=== PATIENT | male | born 1955 | race African-American/Black ===

== ENCOUNTER → 2018-08-07 12:10 | Outpatient (CLI) | payer MEDICARE, SELFPAY ==
[2018-08-07 13:09] LABS: Alanine Aminotransferase 23 IU/L (21-72); Aspartate Aminotransferase 26 IU/L (17-59); BUN Creatinine Ratio 16.3 (6-22); Blood Urea Nitrogen 13 mg/dL (9-20); Calcium 9.9 mg/dL (8.4-10.2); Carbon Dioxide 33 mmol/L (22-32); Chloride 99 mmol/L (98-107); Cholesterol 163 mg/dL (140-199); Estimated Glomerular Filt Rate > 60.0 mL/min (>60); Glucose 81 mg/dL (80-110); HDL Cholesterol 66 mg/dL (40-60); HEMOLYSIS < 15 (0-50); LDL Cholesterol Calculated 78 mg/dL (<100); Potassium 4.6 mmol/L (3.4-5.1); Sodium 142 mmol/L (137-145); Triglycerides 95 mg/dL (35-150)
== END ==
PROVIDERS: PCP Internal Medicine; Visit Provider Internal Medicine
DX: I10 Essential (primary) hypertension (principal); E78.5 Hyperlipidemia, unspecified
CPT/HCPCS: 36415; 80048; 80061; 84450; 84460

== ENCOUNTER 2020-04-10 18:51 | Inpatient (IN) | payer MEDICARE, MEDICAID, SELFPAY ==
[2020-04-10] VITALS (8 sets, daily range): BP systolic 118–152; BP diastolic 65–89; PULSE 109–116; RESP 26–31; TEMP 36.7–37.9; O2SAT 99–100; BMI 20.7
--- NOTE | 2020-04-10 18:56 | DI.RAD.S_ITS ---
PROCEDURE: XR CHEST 1V INDICATIONS: flu-like symptoms TECHNIQUE: One view of the chest was acquired. COMPARISON: [facility], CT, CT CHEST WITHOUT CONTRAST, 09/03/2019, 23:19. [facility], CR, XR CHEST 1 VIEW, 11/14/2019, 12:59. FINDINGS: Surgical changes and devices: None. Lungs and pleura: Rounded lesion in the left upper lobe peripherally appears similar to the prior exams. Emphysematous change. No new air space opacity identified. No pleural effusions or pneumothorax. Mediastinum: Mediastinal contours appear normal. Heart size is normal. Bones and chest wall: No suspicious bony lesions. Overlying soft tissues appear unremarkable. IMPRESSION: No acute cardiopulmonary abnormality. Left upper lobe pulmonary nodule appears similar. -Consider further evaluation with PET/CT if not performed as previously recommended. Emphysematous change. Dictated by: Elkin Castellon M.D. on 04/10/2020 at 19:51 Approved by: Elkin Castellon M.D. on 04/10/2020 at 19:53
[2020-04-10] MEDS: ALBUTEROL/IPRATROPIUM 3 ML AMPUL INH (19:00)
[2020-04-10 19:19] LABS: Add Manual Diff / Slide Review NO; Basophils Absolute Auto 100 /uL (0-100); Basophils Percent Auto 0.3 % (0-2); Eosinophils Absolute Auto 0 /uL (0-450); Hematocrit 33.8 % (41-53); Hemoglobin 11.2 g/dL (13.5-17.5); Lymphocytes Absolute Auto 900 /uL (1100-4500); Lymphocytes Percent Auto 4.3 % (25-40); Mean Corpuscular HGB Conc 33.1 % (30-36); Mean Corpuscular Hemoglobin 28.9 PG (26-34); Mean Corpuscular Volume 87.4 fL (80-100); Monocytes Absolute Auto 800 /uL (0-900); Monocytes Percent Auto 3.7 % (3-14); Neutrophils Absolute Auto 19400 /uL (1500-7000); Neutrophils Percent Auto 91.7 % (50-75); Platelet Count 363 X10^3/uL (150-400); Red Blood Cell Count 3.87 X10^6/uL (4.5-5.9); Red Cell Distribution Width 14.7 % (11.6-14.8); White Blood Cell Count 21.2 X10^3/uL (4.5-11.0)
--- NOTE | 2020-04-10 19:19 | ED_ITS ---
HPI - SOB/Dyspnea General Chief Complaint: Shortness of Breath/Dyspnea Stated Complaint: blood in sputum Time Seen by Provider: 04/10/20 18:56 Source: EMS Mode of arrival: EMS Limitations: no limitations History of Present Illness HPI Narrative: 65-year-old male former smoker with history of COPD on home oxygen of 2 L presents from a local rehab facility with a chief complaint of a relatively rapid onset of increased shortness of breath with pulse ox at 90% despite increasing oxygen by nasal cannula. Additionally he has had blood in his sputum and urine. He denies any chest pain or significant fatigue but is clearly increased work of breathing. He does not take any blood thinners. He has had no recent travel but has recently been hospitalized, he is of poor historian so the details are unclear. His records have been requested from the outside facility MD Complaint: shortness of breath and cough Onset (ago): hour(s) Severity: moderate Consistency/Duration: constant Relieving factors: oxygen and rest Exacerbating factors: nothing Known history of: COPD Associated symptoms: cough, wheezing and sputum production Related Data Home oxygen amount: 2 liters Home Medications Medication Instructions Recorded Confirmed acetaminophen 500 mg PO TID 04/10/20 04/10/20 albuterol sulfate 2.5 mg INHALATION QID PRN 04/10/20 04/10/20 amlodipine 10 mg PO QAM 04/10/20 04/10/20 aspirin [Adult Low Dose Aspirin] 81 mg PO QAM 04/10/20 04/10/20 atorvastatin 40 mg PO BEDTIME 04/10/20 04/10/20 baclofen 20 mg PO TID 04/10/20 04/10/20 benazepril 40 mg PO QAM 04/10/20 04/10/20 ferrous sulfate 325 mg PO QAM 04/10/20 04/10/20 gabapentin 600 mg PO TID 04/10/20 04/10/20 ipratropium-albuterol 3 ml INHALATION Q6H PRN 04/10/20 04/10/20 mometasone-formoterol [Dulera] 2 puff INHALATION BID 04/10/20 04/10/20 nicotine (polacrilex) 2 mg BUCCAL Q2-4H PRN 04/10/20 04/10/20 pantoprazole [Protonix] 40 mg PO QAM 04/10/20 04/10/20 Allergies Allergy/AdvReac Type Severity Reaction Status Date / Time No Known Drug Allergies Allergy Unverified 04/10/20 18:56 Review of Systems Constitutional Constitutional: Denies chills, Denies fatigue, Denies fever(s), Denies frequent falls, Denies lethargy and Denies weakness Eyes Eyes: Denies change in vision, Denies eye discharge, Denies irritation and Denies loss of vision ENT Ears, Nose, Mouth, and Throat: Denies change in voice, Denies dizziness, Denies neck pain, Denies sore throat and Denies throat swelling Cardiovascular Cardiovascular: Denies chest pain, Denies irregular heart rhythm, Denies lightheadedness, Denies palpitations, Reports dyspnea, Denies dyspnea on exertion and Denies orthopnea Respiratory Respiratory: Denies cough, Reports hemoptysis, Reports dyspnea, Denies dyspnea on exertion and Denies wheezing Gastrointestinal Gastrointestinal: Denies abdominal pain, Denies change in bowel habits, Denies diarrhea, Denies nausea and Denies vomiting Musculoskeletal Musculoskeletal: Denies neck pain and Denies numbness Integumentary/Breasts Skin/Breast: Denies pruritus, Denies erythema, Denies rash and Denies wounds Neurologic Neurologic: Denies behavioral changes, Denies confusion, Denies dizziness, Denies frequent falls, Denies loss of vision, Denies numbness and Denies weakness Psychiatric Psychiatric: Denies anxiety, Denies behavioral changes, Denies confusion, Denies depression, Denies homicidal ideation and Denies suicidal ideation Endocrine Endocrine: Denies fatigue, Denies flushing and Denies palpitations Hematologic/Lymphatic Hematologic/Lymphatic: Denies easy bruising Allergic/Immunologic Allergic/Immunologic: Denies urticaria, Denies throat swelling and Denies wheezing Patient History Medical History (Updated 04/10/20 @ 21:47 by Lio Saleem DO) Anemia, unspecified (Acute) Calculus of gallbladder without cholecystitis (Acute) Chronic obstructive pulmonary disease (Acute) Contracture, right elbow (Acute) Dysphagia (Acute) Esophageal obstruction (Acute) Essential hypertension (Acute) Hemiplegia and hemiparesis following cerebral infarction affecting right dominant side (Acute) Major depressive disorder (Acute) Melena (Acute) Neoplasm of uncertain behavior (Acute) Other nonspecific abnormal finding of lung field (Acute) Other reduced mobility (Acute) Other sequelae of cerebral infarction (Acute) Pneumonitis due to inhalation of food and vomit (Acute) Ulcer of esophagus with bleeding (Acute) Unspecified abnormal involuntary movements (Acute) Smoking Status: Former smoker alcohol intake frequency: 0-2 drinks per day Substance Use Type: does not use Exam Narrative Exam Narrative: GENERAL 65 year old patient appears stated age. Well-nourished, well-developed patient, in mild distress. Increased work of breathing, poor historian HEAD: Atraumatic. Normocephalic. EYES: Pupils equal round and reactive. Extraocular motions intact. No scleral icterus. No injection or drainage. ENT: Nose without bleeding, purulent drainage. Throat without erythema, tonsillar hypertrophy or exudate. Airway patent. NECK: Trachea midline. Non tender CARDIOVASCULAR: Tachycardic and regular rhythm without murmurs, gallops, or rubs. RESPIRATORY: Decreased breath sounds with expiratory wheeze bilaterally. Nor rales or rhonchi noted. GASTROINTESTINAL: Abdomen soft, non-tender, nondistended. EXTREMITIES: No edema or joint tenderness. BACK: Nontender without deformity or crepitance. No flank tenderness. NEURO: AOx3. Right upper and lower extremity weakness with splints on, consistent with history of stroke consulting and right-sided weakness SKIN: No rash or erythema of visible areas Initial Vital Signs Initial Vital Signs: Vital Signs Temperature 98.1 F 04/10/20 18:51 Pulse Rate 116 H 04/10/20 18:51 Respiratory Rate 30 H 04/10/20 18:51 Blood Pressure 152/89 H 04/10/20 18:51 Pulse Oximetry 100 04/10/20 18:51 Course Orders Ordered: ED Orders 04/10/20 18:54 EKG-12 Lead Stat RT Consult Eval and Treat Now 04/10/20 18:56 XR chest 1V Stat 04/10/20 19:05 C-Reactive Protein Quant Stat Complete Blood Count AUTO DIFF Stat Comprehensive Metabolic Panel Stat D Dimer Stat Ferritin Stat Lactate (Lactic Acid) Stat Lactate Dehydrogenase Stat NT-proBNP (BNP-Adult 18+) Stat Procalcitonin Stat Prothrombin Time INR Stat Troponin & CK Cardiac Panel Stat 04/10/20 19:11 Arterial Blood Gas Stat 04/10/20 19:33 Blood Culture Stat 04/10/20 19:58 CT angio chest PE protocol Stat 04/10/20 20:49 Urine Microscopic Stat Sodium Chloride (Normal Saline 0.9%) 1,000 mls @ 125 mls/hr IV CONT MILO Sodium Chloride (Normal Saline 0.9%) 2,100 mls @ 700 mls/hr 30 ml/kg infuse over 3 hr (2100 ml) IV NOW ONE Stop: 04/10/20 22:31 Last Admin: 04/10/20 19:49 Dose: 700 mls/hr Documented by: HANANE Discontinued Medications Albuterol/Ipratropium (Duoneb) 3 ml INH NOW ONE Stop: 04/10/20 18:55 Last Admin: 04/10/20 19:00 Dose: 3 ml Documented by: HARRISON Levofloxacin (Levaquin) 750 mg in 150 mls @ 100 mls/hr IV NOW ONE Stop: 04/10/20 21:01 Last Admin: 04/10/20 19:49 Dose: 100 mls/hr Documented by: HANANE Vital Signs Vital signs: Vital Signs - 8 hr 04/10/20 18:51 04/10/20 19:00 Temperature 98.1 F Pulse Rate 116 H 115 H Respiratory Rate 30 H 30 H Blood Pressure 152/89 H Pulse Oximetry 100 100 MDM - SOB/Dyspnea Lab Data Result diagrams: 04/10/20 19:05 04/10/20 19:05 Labs: Lab Results 04/10/20 04/10/20 04/10/20 Range/Units 19:05 19:05 19:05 WBC 21.2 H (4.5-11.0) X10^3/uL RBC 3.87 L (4.5-5.9) X10^6/uL Hgb 11.2 L (13.5-17.5) g/dL Hct 33.8 L (41-53) % MCV 87.4 (80-100) fL MCH 28.9 (26-34) PG MCHC 33.1 (30-36) % RDW 14.7 (11.6-14.8) % Plt Count 363 (150-400) X10^3/uL Neut % (Auto) 91.7 H (50-75) % Lymph % (Auto) 4.3 L (25-40) % [place] % (Auto) 3.7 (3-14) % Eos % (Auto) 0.0 L (2-4) % Baso % (Auto) 0.3 (0-2) % Neut # (Auto) 65176 H (8267-0814) /uL Lymph # (Auto) 900 L (5916-7115) /uL [place] # (Auto) 800 (0-900) /uL Eos # (Auto) 0 (0-450) /uL Baso # (Auto) 100 (0-100) /uL PT 12.7 (10.1-12.7) SECONDS INR 1.1 (0.9-1.3) D-Dimer (<230) ng/mL ABG pH (7.35-7.45) ABG pCO2 (35-45) mmHg ABG pO2 (80-100) mmHg ABG HCO3 (22-26) mmol/L ABG Total CO2 (21-31) mmol/L ABG O2 Saturation (95-100) % ABG Base Excess (-2-2) mmol/L FiO2 Sodium 129 L (137-145) mmol/L Potassium 5.3 H (3.4-5.1) mmol/L Chloride 87 L (98-107) mmol/L Carbon Dioxide 33 H (22-32) mmol/L BUN 21 H (9-20) mg/dL Creatinine 0.73 (0.66-1.25) mg/dL Estimated GFR > 60.0 (>60) mL/min BUN/Creatinine Ratio 28.8 H (6-22) Glucose 102 (80-110) mg/dL Lactate (0.7-2.1) mmol/L Calcium 10.0 (8.4-10.2) mg/dL Ferritin (18-464) ng/mL Total Bilirubin 0.9 (0.2-1.3) mg/dL AST 52 (17-59) IU/L ALT 27 (<50) IU/L Alkaline Phosphatase 114 (38-126) U/L Lactate Dehydrogenase (313-618) U/L Total Creatine Kinase (55-170) U/L CK-MB (CK-2) (<2.37) ng/mL CK-MB (CK-2) Rel Index (1.5-5.0) % Troponin I (0.01-0.034) ng/mL C-Reactive Protein (<1.0) mg/dL NT-Pro-B Natriuret Pep Cancelled Total Protein 8.4 H (6.3-8.2) g/dL Albumin 4.6 (3.5-5.0) g/dL Globulin 3.8 (1.7-4.1) g/dL Albumin/Globulin Ratio 1.2 (1.0-2.8) Procalcitonin (<0.5) ng/mL Urine RBC (0-5/HPF) Urine WBC (0-5/HPF) Urine Bacteria (None) Ur Culture Indicated? COVID-19 PCR (Negative) 04/10/20 04/10/20 04/10/20 Range/Units 19:05 19:05 19:05 WBC (4.5-11.0) X10^3/uL RBC (4.5-5.9) X10^6/uL Hgb (13.5-17.5) g/dL Hct (41-53) % MCV (80-100) fL MCH (26-34) PG MCHC (30-36) % RDW (11.6-14.8) % Plt Count (150-400) X10^3/uL Neut % (Auto) (50-75) % Lymph % (Auto) (25-40) % [place] % (Auto) (3-14) % Eos % (Auto) (2-4) % Baso % (Auto) (0-2) % Neut # (Auto) (6142-3520) /uL Lymph # (Auto) (8433-9932) /uL [place] # (Auto) (0-900) /uL Eos # (Auto) (0-450) /uL Baso # (Auto) (0-100) /uL PT (10.1-12.7) SECONDS INR (0.9-1.3) D-Dimer 1609 H (<230) ng/mL ABG pH (7.35-7.45) ABG pCO2 (35-45) mmHg ABG pO2 (80-100) mmHg ABG HCO3 (22-26) mmol/L ABG Total CO2 (21-31) mmol/L ABG O2 Saturation (95-100) % ABG Base Excess (-2-2) mmol/L FiO2 Sodium (137-145) mmol/L Potassium (3.4-5.1) mmol/L Chloride (98-107) mmol/L Carbon Dioxide (22-32) mmol/L BUN (9-20) mg/dL Creatinine (0.66-1.25) mg/dL Estimated GFR (>60) mL/min BUN/Creatinine Ratio (6-22) Glucose (80-110) mg/dL Lactate 1.1 (0.7-2.1) mmol/L Calcium (8.4-10.2) mg/dL Ferritin (18-464) ng/mL Total Bilirubin (0.2-1.3) mg/dL AST (17-59) IU/L ALT (<50) IU/L Alkaline Phosphatase (38-126) U/L Lactate Dehydrogenase (313-618) U/L Total Creatine Kinase (55-170) U/L CK-MB (CK-2) (<2.37) ng/mL CK-MB (CK-2) Rel Index (1.5-5.0) % Troponin I (0.01-0.034) ng/mL C-Reactive Protein (<1.0) mg/dL NT-Pro-B Natriuret Pep Total Protein (6.3-8.2) g/dL Albumin (3.5-5.0) g/dL Globulin (1.7-4.1) g/dL Albumin/Globulin Ratio (1.0-2.8) Procalcitonin 0.70 H (<0.5) ng/mL Urine RBC (0-5/HPF) Urine WBC (0-5/HPF) Urine Bacteria (None) Ur Culture Indicated? COVID-19 PCR (Negative) 04/10/20 04/10/20 04/10/20 Range/Units 19:05 19:05 19:11 WBC (4.5-11.0) X10^3/uL RBC (4.5-5.9) X10^6/uL Hgb (13.5-17.5) g/dL Hct (41-53) % MCV (80-100) fL MCH (26-34) PG MCHC (30-36) % RDW (11.6-14.8) % Plt Count (150-400) X10^3/uL Neut % (Auto) (50-75) % Lymph % (Auto) (25-40) % [place] % (Auto) (3-14) % Eos % (Auto) (2-4) % Baso % (Auto) (0-2) % Neut # (Auto) (2105-1440) /uL Lymph # (Auto) (3774-8772) /uL [place] # (Auto) (0-900) /uL Eos # (Auto) (0-450) /uL Baso # (Auto) (0-100) /uL PT (10.1-12.7) SECONDS INR (0.9-1.3) D-Dimer (<230) ng/mL ABG pH 7.49 H (7.35-7.45) ABG pCO2 43.3 (35-45) mmHg ABG pO2 62 L (80-100) mmHg ABG HCO3 33 H (22-26) mmol/L ABG Total CO2 34 H (21-31) mmol/L ABG O2 Saturation 93 L (95-100) % ABG Base Excess 9.0 H (-2-2) mmol/L FiO2 32 Sodium (137-145) mmol/L Potassium (3.4-5.1) mmol/L Chloride (98-107) mmol/L Carbon Dioxide (22-32) mmol/L BUN (9-20) mg/dL Creatinine (0.66-1.25) mg/dL Estimated GFR (>60) mL/min BUN/Creatinine Ratio (6-22) Glucose (80-110) mg/dL Lactate (0.7-2.1) mmol/L Calcium (8.4-10.2) mg/dL Ferritin 18 (18-464) ng/mL Total Bilirubin (0.2-1.3) mg/dL AST (17-59) IU/L ALT (<50) IU/L Alkaline Phosphatase (38-126) U/L Lactate Dehydrogenase 631 H (313-618) U/L Total Creatine Kinase 580 H (55-170) U/L CK-MB (CK-2) 5.26 H (<2.37) ng/mL CK-MB (CK-2) Rel Index 0.9 L (1.5-5.0) % Troponin I 0.030 (0.01-0.034) ng/mL C-Reactive Protein 1.2 H (<1.0) mg/dL NT-Pro-B Natriuret Pep 56 Total Protein (6.3-8.2) g/dL Albumin (3.5-5.0) g/dL Globulin (1.7-4.1) g/dL Albumin/Globulin Ratio (1.0-2.8) Procalcitonin (<0.5) ng/mL Urine RBC (0-5/HPF) Urine WBC (0-5/HPF) Urine Bacteria (None) Ur Culture Indicated? COVID-19 PCR (Negative) 04/10/20 04/10/20 Range/Units 19:57 20:49 WBC (4.5-11.0) X10^3/uL RBC (4.5-5.9) X10^6/uL Hgb (13.5-17.5) g/dL Hct (41-53) % MCV (80-100) fL MCH (26-34) PG MCHC (30-36) % RDW (11.6-14.8) % Plt Count (150-400) X10^3/uL Neut % (Auto) (50-75) % Lymph % (Auto) (25-40) % [place] % (Auto) (3-14) % Eos % (Auto) (2-4) % Baso % (Auto) (0-2) % Neut # (Auto) (8600-4023) /uL Lymph # (Auto) (8471-8959) /uL [place] # (Auto) (0-900) /uL Eos # (Auto) (0-450) /uL Baso # (Auto) (0-100) /uL PT (10.1-12.7) SECONDS INR (0.9-1.3) D-Dimer (<230) ng/mL ABG pH (7.35-7.45) ABG pCO2 (35-45) mmHg ABG pO2 (80-100) mmHg ABG HCO3 (22-26) mmol/L ABG Total CO2 (21-31) mmol/L ABG O2 Saturation (95-100) % ABG Base Excess (-2-2) mmol/L FiO2 Sodium (137-145) mmol/L Potassium (3.4-5.1) mmol/L Chloride (98-107) mmol/L Carbon Dioxide (22-32) mmol/L BUN (9-20) mg/dL Creatinine (0.66-1.25) mg/dL Estimated GFR (>60) mL/min BUN/Creatinine Ratio (6-22) Glucose (80-110) mg/dL Lactate (0.7-2.1) mmol/L Calcium (8.4-10.2) mg/dL Ferritin (18-464) ng/mL Total Bilirubin (0.2-1.3) mg/dL AST (17-59) IU/L ALT (<50) IU/L Alkaline Phosphatase (38-126) U/L Lactate Dehydrogenase (313-618) U/L Total Creatine Kinase (55-170) U/L CK-MB (CK-2) (<2.37) ng/mL CK-MB (CK-2) Rel Index (1.5-5.0) % Troponin I (0.01-0.034) ng/mL C-Reactive Protein (<1.0) mg/dL NT-Pro-B Natriuret Pep Total Protein (6.3-8.2) g/dL Albumin (3.5-5.0) g/dL Globulin (1.7-4.1) g/dL Albumin/Globulin Ratio (1.0-2.8) Procalcitonin (<0.5) ng/mL Urine RBC None seen (0-5/HPF) Urine WBC None seen (0-5/HPF) Urine Bacteria None seen (None) Ur Culture Indicated? Cult not indicated COVID-19 PCR Negative (Negative) Urine Dip Bedside Urine Glucose Negative Bedside Urine Bilirubin - Negative Bedside Urine Ketone +/- 5 Urine Specific [place] 1.010 Bedside Urine Occult Blood - Negative Bedside Urine pH 7.5 Bedside Urine Protein +/- 15 Bedside Urine Urobilinogen - Negative Bedside Urine Nitrite - Negative Bedside Urine Leukocytes - Negative Esterase Imaging Data CT scan - chest: Radiologist's Impression: Chart Viewer Diagnostics DATE TYPE STATUS REF RANGE/AUTHOR Hx 04/10/20 19:58 Elkin Castellon 04/10/20 18:56 Akira King Jr, M0 1955 ADM IN, Main ED R04 Search Chart No Data to Display No Data to Display Today 19:00 AKIRA KING JR M [address] [address] [address] Scan Report Signed Patient: AKIRA KING JR R#: [id number] : 3Acct:[id number] Age/Sex: 65 / MDate of Service: 04/10/20 Loc: ED Accession Number: [id number] Procedure: CT angio chest PE protocol Ordering Provider: Lio Saleem D.O. PROCEDURE: CT ANGIO CHEST PE PROTOCOL INDICATIONS: SOB, tachycardia, hypoxia, elevated DDimer TECHNIQUE: After the administration of intravenous contrast, 2 mm thick sections acquired from the pulmonary apices to the posterior costophrenic angles. 3-dimensional maximum intensity projection (MIP) coronal and sagittal reformats were then acquired through the thorax. For radiation dose reduction, the following was used: automated exposure control, adjustment of mA and/or kV according to patient size. COMPARISON: [facility], CT, CT CHEST WITHOUT CONTRAST, 09/03/2019, 23:19. [facility], CR, XR CHEST 1V, 04/10/2020, 19:18. FINDINGS: Image quality: Fair. Bolus timing is somewhat delayed with near equal contrast enhancement in the aorta. Artifact related to the patient's arm positioned over the right chest. Pulmonary arteries: Pulmonary arteries are normal in size, and demonstrate no intraluminal filling defects to suggest central pulmonary embolism. Lungs and pleura: Extensive emphysematous change. Left upper lobe pulmonary nodule with peripheral lucency measuring 2.3 x 2 cm (), previously 2.2 x 2.1 cm on 09/03/2019. Minimal streaky opacities lung bases. No pleural effusions or pneumothorax. Central and peripheral airways are patent. Mediastinum: Heart size is prominent, without pericardial effusion. No mediastinal or hilar adenopathy. Thoracic aorta is normal in caliber and enhancement. Esophagus is normal in caliber, without hiatal hernia. Debris within the esophagus. Bones and chest wall: Scoliosis. No suspicious bony lesions. Ribs and thoracic spine appear intact throughout. Thyroid gland is unremarkable. No axillary or supraclavicular adenopathy. Abdomen: Visualized upper abdominal solid organs appear normal in the early arterial phase of enhancement. IMPRESSION: Suboptimal evaluation due to artifact. 1. No central pulmonary embolism. 2. No significant acute airspace opacity. Minimal atelectasis. Extensive emphysema. 3. Left upper lobe pulmonary nodule measuring 2.3 cm is not significantly changed compared to August of 2019. Consider further evaluation with PET/CT which may help in excluding underlying malignancy. 4. Debris in the esophagus. This may place the patient at increased risk for aspiration. Dictated by: Elkin Castellon M.D. on 04/10/2020 at 21:05 Approved by: Elkin Castellon M.D. on 04/10/2020 at 21:14 MDM Narrative Medical decision making narrative: Multiple etiologies to consider, however COVID, PE, exacerbation of COPD with underlying infectious process are clearly highest on our list. Given tachycardia, tachypnea, hypoxia, hemoptysis with elevated D-dimer a CTA to rule out PE was ordered. I discussed the images with the radiologist personally and no filling defects are noted. Rapid COVID was obtained and negative, CT not classic for coronavirus. Infectious etiology highly considered given hypoxia, tachypnea, elevated white count, elevated procalcitonin but no classic findings on imaging. Perhaps this will proliferating further imaging after fluid administration. Patient will require hospitalization given increased oxygen demand and need for stabilization of his condition. Discharge Plan Departure Patient Disposition: Admitted As Inpatient Clinical Impression: Acute exacerbation of chronic obstructive airways disease, Respiratory failure with hypoxia Admit Date/Time: 04/10/20 21:41 Admit Provider: Enrrique Johnson
[2020-04-10 19:28] LABS: INR 1.1 (0.9-1.3); Prothrombin Time 12.7 SECONDS (10.1-12.7)
[2020-04-10 19:30] LABS: Lactate (Lactic Acid) 1.1 mmol/L (0.7-2.1)
[2020-04-10 19:33] LABS: C-Reactive Protein Quant 1.2 mg/dL (<1.0); Lactate Dehydrogenase 631 U/L (313-618)
[2020-04-10 19:35] LABS: Alanine Aminotransferase 27 IU/L (<50); Albumin 4.6 g/dL (3.5-5.0); Albumin Globulin Ratio 1.2 (1.0-2.8); Alkaline Phosphatase 114 U/L (38-126); Aspartate Aminotransferase 52 IU/L (17-59); BUN Creatinine Ratio 28.8 (6-22); Bilirubin Total 0.9 mg/dL (0.2-1.3); Blood Urea Nitrogen 21 mg/dL (9-20); Carbon Dioxide 33 mmol/L (22-32); Chloride 87 mmol/L (98-107); Estimated Glomerular Filt Rate > 60.0 mL/min (>60); Globulin 3.8 g/dL (1.7-4.1); Glucose 102 mg/dL (80-110); HEMOLYSIS < 15 (0-50); Potassium 5.3 mmol/L (3.4-5.1); Sodium 129 mmol/L (137-145); Total Protein 8.4 g/dL (6.3-8.2)
[2020-04-10 19:40] LABS: D Dimer 1609 ng/mL (<230); NT-proBNP (BNP-Adult 18+) 56 pg/mL (<125)
[2020-04-10] MEDS: SODIUM CHLORIDE 0.9% 2,100 ML 700 ML IV (19:49)
[2020-04-10] MEDS: levoFLOXacin 750 MG/150 ML PIGGYBACK 100 MG IV (19:49)
[2020-04-10 19:50] LABS: Fractionated Inspired Oxygen 32; HCO3 ABG 33 mmol/L (22-26); Oxygen Saturation ABG 93 % (95-100); PCO2 ABG 43.3 mmHg (35-45); PO2 ABG 62 mmHg (80-100); TCO2 ABG 34 mmol/L (21-31); pH ABG 7.49 (7.35-7.45)
--- NOTE | 2020-04-10 19:58 | DI.CT.S_ITS ---
PROCEDURE: CT ANGIO CHEST PE PROTOCOL INDICATIONS: SOB, tachycardia, hypoxia, elevated DDimer TECHNIQUE: After the administration of intravenous contrast, 2 mm thick sections acquired from the pulmonary apices to the posterior costophrenic angles. 3-dimensional maximum intensity projection (MIP) coronal and sagittal reformats were then acquired through the thorax. For radiation dose reduction, the following was used: automated exposure control, adjustment of mA and/or kV according to patient size. COMPARISON: [facility], CT, CT CHEST WITHOUT CONTRAST, 09/03/2019, 23:19. [facility], CR, XR CHEST 1V, 04/10/2020, 19:18. FINDINGS: Image quality: Fair. Bolus timing is somewhat delayed with near equal contrast enhancement in the aorta. Artifact related to the patient's arm positioned over the right chest. Pulmonary arteries: Pulmonary arteries are normal in size, and demonstrate no intraluminal filling defects to suggest central pulmonary embolism. Lungs and pleura: Extensive emphysematous change. Left upper lobe pulmonary nodule with peripheral lucency measuring 2.3 x 2 cm (), previously 2.2 x 2.1 cm on 09/03/2019. Minimal streaky opacities lung bases. No pleural effusions or pneumothorax. Central and peripheral airways are patent. Mediastinum: Heart size is prominent, without pericardial effusion. No mediastinal or hilar adenopathy. Thoracic aorta is normal in caliber and enhancement. Esophagus is normal in caliber, without hiatal hernia. Debris within the esophagus. Bones and chest wall: Scoliosis. No suspicious bony lesions. Ribs and thoracic spine appear intact throughout. Thyroid gland is unremarkable. No axillary or supraclavicular adenopathy. Abdomen: Visualized upper abdominal solid organs appear normal in the early arterial phase of enhancement. IMPRESSION: Suboptimal evaluation due to artifact. 1. No central pulmonary embolism. 2. No significant acute airspace opacity. Minimal atelectasis. Extensive emphysema. 3. Left upper lobe pulmonary nodule measuring 2.3 cm is not significantly changed compared to August of 2019. Consider further evaluation with PET/CT which may help in excluding underlying malignancy. 4. Debris in the esophagus. This may place the patient at increased risk for aspiration. Dictated by: Elkin Castellon M.D. on 04/10/2020 at 21:05 Approved by: Elkin Castellon M.D. on 04/10/2020 at 21:14
[2020-04-10 20:06] LABS: Ferritin 18 ng/mL (18-464)
--- NOTE | 2020-04-10 20:15 | PC.NURSE ---
Pt moaning and continually yelling our for help. Ensured call light in reach. Assisted with urination. Rt placed pt on high flow heated nasal canula. Pt remains on monitoring device.
[2020-04-10 21:04] LABS: Bacteria Urine None Seen; RBC Urine None Seen (0-5/HPF); WBC Urine None Seen (0-5/HPF)
[2020-04-10 21:09] LABS: COVID19 -Nasal RAPID Negative (Negative)
[2020-04-10 21:15] LABS: Creatine Kinase 580 U/L (55-170)
[2020-04-10 21:17] LABS: Culture Indicated Urine Cult Not Indicated
[2020-04-10 21:30] LABS: CKMB % Relative Index 0.9 % (1.5-5.0); Creatine Kinase MB 5.26 ng/mL (<2.37)
[2020-04-10 23:17] LABS: Magnesium 1.6 mg/dL (1.6-2.3)
--- NOTE | 2020-04-10 23:35 | P.HP_ITS ---
History of Present Illness History of Present Illness Date Patient Seen: 04/10/20 Time Patient Seen: 22:53 Chief complaint: blood in sputum Narrative: Mr. 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 History obtained from the patient is somewhat suspect with different versions of information provided defer personnel. The patient is on home O2 at between 2-4 liters/minute titrated up to 3.5 L with increasing shortness of breath that has been progressive over 2 days. Today the patient reports coughing with blood tinged sputum and has been complaining of fevers and chills. He denies headache nasal congestion or sore throat. He has had no complaints of chest pain or palpitations. He reports worsening breathing with an associated cough and has minimal fully active. He reports no abdominal pain or heartburn, nausea or vomiting. Patient denies diarrhea or constipation reports last bowel movement was earlier today. He denies difficulty urinating. The patient states he is nonambulatory at the [facility] the he does have a right arm splint and right AFO. Upon arrival the patient is afebrile with temperature 98.1?, type cardiac at 116, blood pressure 152/89, respirations of 30 in shallow saturating 100% on 4 L nasal cannula. In a chest x-ray sustained finds no infusions or consolidation, left upper lobe nodule present, CT a is obtained finding no central PE, nodule 2.3 x 2 cm in the left upper lobe, minimal streaky opacities in the lung bases, debris in the esophagus. An arterial blood gas obtained finding pH of 7.49, pCO2 of 43.3, PO2 of 62, bicarb 33 with a base excess of +9 on 32% FiO2. On laboratory analysis he has an elevated white count at 22.2 with neutrophils of 91.7%, hemoglobin of 11.2 hematocrit of 33.8, platelets of 368. He has a PT of 12.7 and INR of 1.1 with an elevated D-dimer of 1609. On chemistries is sodium of 129, potassium of 5.3, BUN of 21 and creatinine 0.73. His nonfasting glucose is 102. Does have an elevated LDH at 631, CRP is 1.2, procalcitonin is 0.70, total CK is 580 with CK-MB of 5.26 and an index low at 0.9, troponin is 0.030. He has a proBNP of 56. Will the patient is treated in the ER with albuterol nebulizer an oxygenation in comfort stabilized on he did high-flow nasal cannula normal saline sepsis bolus, blood cultures are drawn and then patient received Levaquin 750 mg IV. With the patient is admitted to the hospital for acute hypoxic respiratory failure secondary to COPD and pneumonia. Patient History Medical History Anemia, unspecified (Acute) Calculus of gallbladder without cholecystitis (Acute) Chronic obstructive pulmonary disease (Acute) Contracture, right elbow (Acute) Dysphagia (Acute) Esophageal obstruction (Acute) Essential hypertension (Acute) Hemiplegia and hemiparesis following cerebral infarction affecting right dominant side (Acute) Major depressive disorder (Acute) Melena (Acute) Neoplasm of uncertain behavior (Acute) Other nonspecific abnormal finding of lung field (Acute) Other reduced mobility (Acute) Other sequelae of cerebral infarction (Acute) Pneumonitis due to inhalation of food and vomit (Acute) Ulcer of esophagus with bleeding (Acute) Unspecified abnormal involuntary movements (Acute) Family & Social History Family History (Updated 04/10/20 @ 23:44 by XAVIER Santos) Father Diabetes mellitus Hypertension CVA (cerebral vascular accident) Social History: Prior Living Arrangements Skilled Nurse Facility Safety & Behavioral: Feels Safe in Current Yes Environment Been Physically Hurt or No Threatened By a Person Suicidal Ideation Description Vague Suicide Plan Description No Plan Tobacco & Substance use: Tobacco type cannabis/marijuana Smoking Status Former smoker alcohol intake frequency 0-2 drinks per day Substance Use Type marijuana Comment: The patient is presently residing at [facility]. Smoking: Former smoker having quit in July 2019, greater than 40 pack year smoking history Alcohol: Patient previously consumed alcoholic beverages but none since his stroke Substance use: Prior user of cocaine, methamphetamine and marijuana. Advanced directives: Entered discussion with the patient he states his desire to be FULL CODE. He designates his friend El Nielsen to be his surrogate decision maker. Meds Home Medications and Allergies Home Medications Medication Instructions Recorded Confirmed Type acetaminophen 500 mg PO TID 04/10/20 04/10/20 History albuterol sulfate 2.5 mg INHALATION QID PRN 04/10/20 04/10/20 History amlodipine 10 mg PO QAM 04/10/20 04/10/20 History aspirin [Adult Low Dose Aspirin] 81 mg PO QAM 04/10/20 04/10/20 History atorvastatin 40 mg PO BEDTIME 04/10/20 04/10/20 History baclofen 20 mg PO TID 04/10/20 04/10/20 History benazepril 40 mg PO QAM 04/10/20 04/10/20 History ferrous sulfate 325 mg PO QAM 04/10/20 04/10/20 History gabapentin 600 mg PO TID 04/10/20 04/10/20 History ipratropium-albuterol 3 ml INHALATION Q6H PRN 04/10/20 04/10/20 History mometasone-formoterol [Dulera] 2 puff INHALATION BID 04/10/20 04/10/20 History nicotine (polacrilex) 2 mg BUCCAL Q2-4H PRN 04/10/20 04/10/20 History pantoprazole [Protonix] 40 mg PO QAM 04/10/20 04/10/20 History Allergies Allergy/AdvReac Type Severity Reaction Status Date / Time No Known Drug Allergies Allergy Unverified 04/10/20 18:56 Review of Systems Review of Systems ROS: Yes All systems reviewed with the patient and are negative except as otherwise documented Exam Vital Signs (past 8 hours): - 04/10/20 18:51 04/10/20 19:00 04/10/20 20:00 Temperature 98.1 F Pulse Rate 116 H 115 H 113 H Respiratory Rate 30 H 30 H 26 H Blood Pressure 152/89 H Blood Pressure [Right Arm] 132/73 Pulse Oximetry 100 100 99 04/10/20 20:45 04/10/20 21:00 04/10/20 21:30 Temperature Pulse Rate 110 H 109 H 111 H Respiratory Rate 27 H 30 H 31 H Blood Pressure Blood Pressure [Right Arm] 118/65 137/67 131/71 Pulse Oximetry 100 100 100 04/10/20 22:15 Temperature 100.3 F H Pulse Rate 114 H Respiratory Rate 28 H Blood Pressure 126/68 Blood Pressure [Right Arm] Pulse Oximetry 100 Oxygen Delivery Method High Flow Nasal Cannula Oxygen Flow Rate 4 Narrative Exam Narrative: GENERAL APPEARANCE: well developed, male with a right-sided marita plegia sitting semi recumbent in bed in no acute distress. HEENT: Right facial droop, difficulty controlling secretions with secretions draining from right mouth, pupils equal and minimally reactive, conjunctiva clear, case tracks bilateral, mucous membranes are moist and pink. NECK/THYROID: Diminished range of motion,, no JVD, no carotid bruit, no thyromegaly, trachea midline. LYMPH NODES: no cervical or supraclavicular lymphadenopathy. SKIN: [place], warm and dry, scrotal irritation HEART: Tachycardic, S1-S2, no murmur, no rubs or gallops, brisk capillary refill, no edema LUNGS: Breath sounds essential coarseness, diminished bibasilar with expiratory grunt CHEST: Symmetrical movement, no accessory muscle use, shallow tidal volume. ABDOMEN: Soft, round, attempting to percussion without tenderness, no organomegaly, no flank or suprapubic tenderness, active bowel tones. EXTREMITIES: Inability to move right arm or right leg, right arm in splint, right lower leg in AFO, left upper and lower extremity strength is 4/5 , contracture right arm and fingers. NEUROLOGIC: AAO x3, right marita paresis, decreased sensation right upper and lower extremities, hearing grossly normal to speech. PSYCH: Anxious, cooperative, needy behaviors. Objective Labs Result Diagrams: 04/10/20 19:05 04/10/20 19:05 Labs: Laboratory Results - last 24 hr 04/10/20 04/10/20 04/10/20 19:05 19:05 19:05 WBC 21.2 H RBC 3.87 L Hgb 11.2 L Hct 33.8 L MCV 87.4 MCH 28.9 MCHC 33.1 RDW 14.7 Plt Count 363 Neut % (Auto) 91.7 H Lymph % (Auto) 4.3 L [place] % (Auto) 3.7 Eos % (Auto) 0.0 L Baso % (Auto) 0.3 Neut # (Auto) 57802 H Lymph # (Auto) 900 L [place] # (Auto) 800 Eos # (Auto) 0 Baso # (Auto) 100 PT 12.7 INR 1.1 D-Dimer ABG pH ABG pCO2 ABG pO2 ABG HCO3 ABG Total CO2 ABG O2 Saturation ABG Base Excess FiO2 Sodium 129 L Potassium 5.3 H Chloride 87 L Carbon Dioxide 33 H BUN 21 H Creatinine 0.73 Estimated GFR > 60.0 BUN/Creatinine Ratio 28.8 H Glucose 102 Lactate Calcium 10.0 Magnesium Ferritin Total Bilirubin 0.9 AST 52 ALT 27 Alkaline Phosphatase 114 Lactate Dehydrogenase Total Creatine Kinase CK-MB (CK-2) CK-MB (CK-2) Rel Index Troponin I C-Reactive Protein NT-Pro-B Natriuret Pep Cancelled Total Protein 8.4 H Albumin 4.6 Globulin 3.8 Albumin/Globulin Ratio 1.2 Procalcitonin Urine RBC Urine WBC Urine Bacteria Ur Culture Indicated? COVID-19 PCR 04/10/20 04/10/20 04/10/20 19:05 19:05 19:05 WBC RBC Hgb Hct MCV MCH MCHC RDW Plt Count Neut % (Auto) Lymph % (Auto) [place] % (Auto) Eos % (Auto) Baso % (Auto) Neut # (Auto) Lymph # (Auto) [place] # (Auto) Eos # (Auto) Baso # (Auto) PT INR D-Dimer 1609 H ABG pH ABG pCO2 ABG pO2 ABG HCO3 ABG Total CO2 ABG O2 Saturation ABG Base Excess FiO2 Sodium Potassium Chloride Carbon Dioxide BUN Creatinine Estimated GFR BUN/Creatinine Ratio Glucose Lactate 1.1 Calcium Magnesium Ferritin Total Bilirubin AST ALT Alkaline Phosphatase Lactate Dehydrogenase Total Creatine Kinase CK-MB (CK-2) CK-MB (CK-2) Rel Index Troponin I C-Reactive Protein NT-Pro-B Natriuret Pep Total Protein Albumin Globulin Albumin/Globulin Ratio Procalcitonin 0.70 H Urine RBC Urine WBC Urine Bacteria Ur Culture Indicated? COVID-19 PCR 04/10/20 04/10/20 04/10/20 19:05 19:05 19:05 WBC RBC Hgb Hct MCV MCH MCHC RDW Plt Count Neut % (Auto) Lymph % (Auto) [place] % (Auto) Eos % (Auto) Baso % (Auto) Neut # (Auto) Lymph # (Auto) [place] # (Auto) Eos # (Auto) Baso # (Auto) PT INR D-Dimer ABG pH ABG pCO2 ABG pO2 ABG HCO3 ABG Total CO2 ABG O2 Saturation ABG Base Excess FiO2 Sodium Potassium Chloride Carbon Dioxide BUN Creatinine Estimated GFR BUN/Creatinine Ratio Glucose Lactate Calcium Magnesium 1.6 Ferritin 18 Total Bilirubin AST ALT Alkaline Phosphatase Lactate Dehydrogenase 631 H Total Creatine Kinase 580 H CK-MB (CK-2) 5.26 H CK-MB (CK-2) Rel Index 0.9 L Troponin I 0.030 C-Reactive Protein 1.2 H NT-Pro-B Natriuret Pep 56 Total Protein Albumin Globulin Albumin/Globulin Ratio Procalcitonin Urine RBC Urine WBC Urine Bacteria Ur Culture Indicated? COVID-19 PCR 04/10/20 04/10/20 04/10/20 19:11 19:57 20:49 WBC RBC Hgb Hct MCV MCH MCHC RDW Plt Count Neut % (Auto) Lymph % (Auto) [place] % (Auto) Eos % (Auto) Baso % (Auto) Neut # (Auto) Lymph # (Auto) [place] # (Auto) Eos # (Auto) Baso # (Auto) PT INR D-Dimer ABG pH 7.49 H ABG pCO2 43.3 ABG pO2 62 L ABG HCO3 33 H ABG Total CO2 34 H ABG O2 Saturation 93 L ABG Base Excess 9.0 H FiO2 32 Sodium Potassium Chloride Carbon Dioxide BUN Creatinine Estimated GFR BUN/Creatinine Ratio Glucose Lactate Calcium Magnesium Ferritin Total Bilirubin AST ALT Alkaline Phosphatase Lactate Dehydrogenase Total Creatine Kinase CK-MB (CK-2) CK-MB (CK-2) Rel Index Troponin I C-Reactive Protein NT-Pro-B Natriuret Pep Total Protein Albumin Globulin Albumin/Globulin Ratio Procalcitonin Urine RBC None seen Urine WBC None seen Urine Bacteria None seen Ur Culture Indicated? Cult not indicated COVID-19 PCR Negative Assessment & Plan Assessment & Plan narrative: This is a 65-year-old male who presents with a 2 day history of worsening shortness of breath developing blood tinged sputum today with associated fevers and chills and increasing oxygen requirement in the setting of COPD. 1. Acute to respiratory failure with hypoxemia,, present on admission, active -patient with a history of emphysema and is on home O2 at 2-4 liters/minute. Complaints of increasing shortness of breath for 2 days developing blood tinged cough today. -patient presents today with increasing hypoxemia progressive for 2 days requiring increase in oxygen level to 3.5, upon arrival respiratory rate is 30 heart rate is 116. -arterial blood gas reveals a pH of 7.49, pCO2 of 33.3, PO2 62, bicarb 33 with a base excess +9 on 32% FiO2. -multiple etiologies intake and for hypoxemia including: COPD exacerbation-PF ratio 193.75, a gradient 109.8 with expected 86. Past history of smoking greater than 40 pack years. Pulmonary embolism-elevated D-dimer at 1609, CTA finds no central filling deficits and is negative for pulmonary embolism. Pneumonia- aspiration pneumonia with debris remaining in the esophagus on CT scan with history of CVA and dysphagia. Pneumonia-bacterial versus viral versus COVID-19, patient with elevated white count at 22 with increased neutrophils of 91.7%, increased procalcitonin an elevated CRP at 1.2 and patient initially afebrile upon arrival however temperature increased to 100.3 on admission to the floor. -respiratory therapy to consult evaluate and treat, supplemental oxygen as needed maintain oxygen saturation 88-92 %, currently on heated, high-flow oxygen. -incentive spirometry every 2 hours while awake and flutter valve twice daily. 2. Sepsis the respiratory compromise, present on admission, active. -patient with an elevated temperature upon arrival to the floor 100.3, has an elevated white count of 22.2 with increased neutrophils of 91.7 %, CRP of 1.2, procalcitonin 0.70. No extremity swelling or findings consistent with DVT. -sofa score is 3 based on pulmonary compromise with a PF ratio of 193.75. -the patient received sepsis bolus in the ER with 2100 cc of normal saline, blood cultures are drawn and he is started on Levaquin 750 mg IV. -will follow septic markers including white count and procalcitonin. 3. Probable pneumonia, acute, present on admission, active. -patient with cough developing blood-tinged sputum today, complaints of fevers and chills. -pneumonia not evident on chest x-ray or CT, imaging identifies only minimal streaky opacities in the lung bases, clinically patient with coarse breath sounds diminished bibasilar breath sounds. -white blood count is 22.2, neutrophils 91.7%, CRP 1.2, procalcitonin 0.7. Pneumonia severity index is 127, classIV with 30 day mortality rate of 8.2%. -Supplemental oxygen to maintain saturation 88-92%, ordered albuterol and DuoNeb treatments. -ordered Lovenox 750 mg daily, 1st dose administered in the ER. -ordered azithromycin 500 mg IV daily. -continue home regimen of Dulera 2 puffs twice daily. 4. Esophageal stricture, chronic -the patient has a prior history of esophageal stricture undergoing balloon dilation 2 years ago. -on CT scan, debris is identified in the esophagus increasing the risk for aspiration. -the patient is not coughing on thin liquids however ordered dysphagia diet. -requested swallow evaluation with speech therapy evaluation. -will continue home medication of Protonix 40 mg daily 5. 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 -the patient resides at [facility] and states that he is nonambulatory. -he has right arm splint and right lower leg AFO. -requested PT and OT consult to evaluate and treat. -will continue home regimen of gabapentin 600 mg 3 times daily and baclofen 20 mg 3 times daily. 6. Essential hypertension, chronic, stable. -patient with a blood pressure 152/89 upon arrival. Blood pressure improves to 126/68 upon arrival to floor. -continue home regimen of benazepril 40 mg daily and amlodipine 10 mg daily. 7. Hyperlipidemia, chronic, stable. -will continue home regimen of atorvastatin 40 mg daily at bedtime. 8. Nicotine dependence, chronic, stable. -patient quit smoking in July of 2019, he has been using nicotine lozenges at [facility]. -ordered Nicoderm patch daily. Isolation: Droplet pending results of respiratory panel. VTE prophylaxis: Bilateral compression hose, enoxaparin. IV fluid: Normal saline 100 cc/hour Diet: Heart healthy low-sodium dysphagia diet Code status: FULL CODE, patient's friend El Nielsen is is surrogate decision maker. This is a 65-year-old male patient with multiple risk factors for pulmonary compromise presenting with acute respiratory failure and hypoxemia. Patient is being treated for pneumonia with further evaluation for aspiration. He has has an elevated D-dimer but CT is negative for central embolism. The patient is admitted as an inpatient for treatment of pneumonia and further evaluation monitoring. His expected length of stay is greater than 2 midnights. COVID-19 COVID-19 status: Negative Result date/Date tested (Pos, Neg/Pending): 04/10/20 Scores GCS Roberto coma scale eye opening: Spontaneous [place] coma scale verbal response: Orientated Roberto coma scale motor response: Obey commands [place] coma scale total score: 15 SOFA PaO2/FIO2: < 220 mmHg Platelets: >= 150 Bilirubin: < 1.2 mg/dL Hypotension: MAP >= 70 mmHg Roberto Coma Scale: 15 Renal: < 1.2 mg/dL SOFA Score: 3 Quality VTE Deep Vein Thrombosis/Pulmonary Embolism Present on Admission: No
--- NOTE | 2020-04-10 23:36 | PC.NURSE ---
Pt arrived on unit at approx 2215 anxious and concerned about the change in scenery but he calmed down and was cooperative. His shorts smelled strongly of urine and it was difficult to convince him to take them off. He arrived on the unit on hi flow heated O2, 40L, NC with a sat of 100%. It was turned down by RT to lower is O2 sat to mid 90's. He denies N and px. He was voided, yellow cloudly. A respiratory panel swab was obtained and set to lab. Pt has a dysphasia and L sided hemiparesis. He uses a motorized wheelchair. VSS and A and O x 4. He may have some confusion when he feels overwhelmed.
[2020-04-11] VITALS (18 sets, daily range): BP systolic 53–155; BP diastolic 27–86; PULSE 88–140; RESP 18–28; TEMP 36.8–37.9; O2SAT 97–100
--- NOTE | 2020-04-11 | DI.RAD.S_ITS ---
PROCEDURE: XR CHEST 1V INDICATIONS: INTUBATION and Picc placement TECHNIQUE: One view of the chest was acquired. COMPARISON: [facility], , XR CHEST 1V, 04/11/2020, 7:01. FINDINGS: Surgical changes and devices: There has been interval placement of an endotracheal tube with the tip positioned approximately 5.9 cm above the level of the jorge luis. A right-sided PICC line catheter is evident with the tip overlying the mid superior vena cava. Lungs and pleura: Aeration of the lungs is similar to the prior study. Nodular densities within it the left upper lobe and right lung base appear to be present, similar to the previous study. There is no effusion or pneumothorax. Mediastinum: Mediastinal contours appear normal. Heart size is normal. Bones and chest wall: No suspicious bony lesions. Overlying soft tissues appear unremarkable. IMPRESSION: 1. Tubes and lines, as described. 2. Stable aeration of the lungs. Dictated by: Deep Sultana M.D. on 04/11/2020 at 16:55 Approved by: Deep Sultana M.D. on 04/11/2020 at 16:56
--- NOTE | 2020-04-11 | DI.RAD.S_ITS ---
PROCEDURE: XR CHEST 1V INDICATIONS: NG TUBE PLACEMENT TECHNIQUE: One view of the chest was acquired. COMPARISON: [facility], CR, XR CHEST 1V, 04/11/2020, 16:41. FINDINGS: Surgical changes and devices: Tip of endotracheal tube projects approximately 6.2 cm above the jorge luis. Nasogastric tube is in place with the distal tip projecting over the left upper abdomen and distal side-port beyond the gastroesophageal junction. Stable positioning of right upper extremity PICC. Lungs and pleura: Left upper lobe nodule. Patchy bilateral opacities involving the upper lung zones bilaterally and right lung base. Diffuse interstitial prominence. No pleural effusions or pneumothorax. Mediastinum: The cardiomediastinal contours remain stable. Heart size is normal. Bones and chest wall: No suspicious bony lesions. Overlying soft tissues appear unremarkable. IMPRESSION: Nasogastric tube in place and appears appropriately positioned. Stable positioning of right upper extremity PICC. Tip of endotracheal tube projects approximately 6.2 cm above the jorge luis. Stable cardiopulmonary evaluation. Dictated by: Brenton Gray M.D. on 04/11/2020 at 18:51 Approved by: Brenton Gray M.D. on 04/11/2020 at 18:54
--- NOTE | 2020-04-11 | DI.RAD.S_ITS ---
PROCEDURE: XR CHEST 1V INDICATIONS: SOB, PNA, Blood in sputum TECHNIQUE: One view of the chest was acquired. COMPARISON: [facility], CT, CT ANGIO CHEST PE PROTOCOL, 04/10/2020, 20:24. [facility], CR, XR CHEST 1V, 04/10/2020, 19:18. FINDINGS: Surgical changes and devices: None. Lungs and pleura: There is a left upper lobe pulmonary nodule. Interstitial prominence within the left lung is more prominent involving the left infrahilar region. No large area of pulmonary consolidation is identified. No effusion or pneumothorax is evident. Mediastinum: Mediastinal contours appear normal. Heart size is normal. Bones and chest wall: No suspicious bony lesions. Overlying soft tissues appear unremarkable. IMPRESSION: 1. Interstitial prominence within the left lung is nonspecific and may represent asymmetric edema versus interstitial pneumonia. 2. Left upper lobe pulmonary nodule. Dictated by: Deep Sultana M.D. on 04/11/2020 at 7:45 Approved by: Deep Sultana M.D. on 04/11/2020 at 7:48
[2020-04-11] MEDS: ATORVASTATIN 20 MG TABLET 40 MG PO (00:33)
[2020-04-11] MEDS: DOCUSATE 100 MG CAPSULE PO (00:33)
[2020-04-11] MEDS: BACLOFEN 10 MG TABLET 20 MG PO (00:34)
[2020-04-11] MEDS: ENOXAPARIN 40 MG/0.4 ML SYRINGE SUBCUT (00:35)
[2020-04-11] MEDS: AZITHROMYCIN 500 MG in DEXTROSE 5% IN WATER 250 ML IV (00:36)
[2020-04-11] MEDS: NICOTINE 21 MG PATCH TOP (00:36)
[2020-04-11 00:53] LABS: Adenovirus Not Detected (Not Detect)
[2020-04-11 00:54] LABS: Bordetella pertussis Not Detected (Not Detect); Chlamydophila pneumoniae Not Detected (Not Detect); Coronavirus 229E Not Detected (Not Detect); Coronavirus HKU1 Not Detected (Not Detect); Coronavirus NL 63 Not Detected (Not Detect); Coronavirus OC43 Not Detected (Not Detect); Human Metapneumovirus Not Detected (Not Detect); Human Rhinovirus/Enterovirus Not Detected (Not Detect); Influenza A Not Detected (Not Detect); Influenza B Not Detected (Not Detect); Mycoplasma pneumoniae Not Detected (Not Detect); Parainfluenza Virus 1 Not Detected (Not Detect); Parainfluenza Virus 2 Not Detected (Not Detect); Parainfluenza Virus 3 Not Detected (Not Detect); Parainfluenza Virus 4 Not Detected (Not Detect); Respiratory Syncytial Virus Not Detected (Not Detect)
[2020-04-11 02:18] LABS: Add Manual Diff / Slide Review NO; Basophils Absolute Auto 100 /uL (0-100); Basophils Percent Auto 0.3 % (0-2); Eosinophils Absolute Auto 0 /uL (0-450); Eosinophils Percent Auto 0.1 % (2-4); Hematocrit 26.2 % (41-53); Hemoglobin 8.5 g/dL (13.5-17.5); Lymphocytes Absolute Auto 1100 /uL (1100-4500); Lymphocytes Percent Auto 4.6 % (25-40); Mean Corpuscular HGB Conc 32.5 % (30-36); Mean Corpuscular Hemoglobin 28.6 PG (26-34); Monocytes Absolute Auto 1700 /uL (0-900); Monocytes Percent Auto 6.9 % (3-14); Neutrophils Absolute Auto 21800 /uL (1500-7000); Neutrophils Percent Auto 88.1 % (50-75); Platelet Count 281 X10^3/uL (150-400); Red Blood Cell Count 2.98 X10^6/uL (4.5-5.9); Red Cell Distribution Width 14.6 % (11.6-14.8); White Blood Cell Count 24.7 X10^3/uL (4.5-11.0)
[2020-04-11 02:27] LABS: BUN Creatinine Ratio 48.1 (6-22); Blood Urea Nitrogen 37 mg/dL (9-20); Calcium 8.9 mg/dL (8.4-10.2); Carbon Dioxide 31 mmol/L (22-32); Chloride 91 mmol/L (98-107); Estimated Glomerular Filt Rate > 60.0 mL/min (>60); Glucose 104 mg/dL (80-110); HEMOLYSIS 20 (0-50); Potassium 4.9 mmol/L (3.4-5.1); Sodium 126 mmol/L (137-145)
[2020-04-11 02:38] LABS: Troponin I 0.046 ng/mL (0.01-0.034)
--- NOTE | 2020-04-11 02:47 | PC.NURSE ---
Very restless, but denies any pain. Refused to wear his knee high anti-embolism stockings. States I can't wear them that's too tight. Will cont. POc & monitor.
[2020-04-11] MEDS: SODIUM CHLORIDE 0.9% 1,000 ML 100 ML IV ×2 (03:10→21:10)
[2020-04-11 03:36] LABS: Procalcitonin 1.73 ng/mL (<0.5)
--- NOTE | 2020-04-11 05:37 | PC.NURSE ---
Night Pharmacist called asked to verify order for Metoprolol 12.5 mg. Po now order.
[2020-04-11] MEDS: METOPROLOL IR 25 MG TABLET 12.5 MG PO (05:50)
--- NOTE | 2020-04-11 06:58 | PC.NURSE ---
XAVIER Johnson notified pt. expectorating more bloody sputum this morning. Hospitalist came & seen pt. this morning. Ordered Stat CXR test cell technician notified. Very restless all night, did not sleep well. Earlier notified XAVIER Johnson his HR is sustaining over 100 to 120's. Medicated with 12.5 mg. PO Metoprolol. Constant drooling changed his gown & took off his t-shirt. Will report to day RN & monitor.
--- NOTE | 2020-04-11 09:01 | P.PN_ITS ---
Subjective Subjective Date Patient Seen: 04/11/20 Time Patient Seen: 09:01 Interval history: He is seen in his room today to follow-up his esophageal stricture, dysphagia, leukocytosis, hemiparesis, fever and rising troponin. He lives in the [facility]. He presented yesterday with bloody sputum, with a CT negative for PE but positive for debris in the esophagus and with a fever of 100.3. He has been started on Zithromax and levofloxacin to treat presumed pneumonia. The imaging has not been confirmatory so far. He had a stroke in November that left him with right hemiparesis. He has had several esophageal stricture procedures to dilate that. His troponin will be repeated later this morning. It is challenging to communicate with him. He is n.p.o. Exam Vital Signs (past 8 hours): - 04/11/20 04:10 04/11/20 08:00 Temperature 99.9 F H 99.5 F Pulse Rate 122 H 114 H Respiratory Rate 26 H 20 Blood Pressure 154/82 H 155/86 H Pulse Oximetry 98 99 Oxygen Delivery Method High Flow Nasal Cannula Oxygen Flow Rate 3 Narrative Exam Narrative: No apparent distress. Orientation challenging to ascertain. He tries to communicate but mostly grunts and moans. He is drooling. It is unclear how much of this is his baseline or exacerbated by the current febrile illness. Heart is difficult to hear due to the noisy upper airway sounds. Lungs are also difficult to clarify due to the noisy upper airway sounds. There is no ankle edema Abdomen is soft, bowel sounds active, nontender, no organomegaly. Objective Labs Result Diagrams: 04/11/20 02:05 04/11/20 02:05 Labs: Laboratory Results - last 24 hr 04/10/20 04/10/20 04/10/20 19:05 19:05 19:05 WBC 21.2 H RBC 3.87 L Hgb 11.2 L Hct 33.8 L MCV 87.4 MCH 28.9 MCHC 33.1 RDW 14.7 Plt Count 363 Neut % (Auto) 91.7 H Lymph % (Auto) 4.3 L Waller % (Auto) 3.7 Eos % (Auto) 0.0 L Baso % (Auto) 0.3 Neut # (Auto) 66397 H Lymph # (Auto) 900 L Waller # (Auto) 800 Eos # (Auto) 0 Baso # (Auto) 100 PT 12.7 INR 1.1 D-Dimer ABG pH ABG pCO2 ABG pO2 ABG HCO3 ABG Total CO2 ABG O2 Saturation ABG Base Excess FiO2 Sodium 129 L Potassium 5.3 H Chloride 87 L Carbon Dioxide 33 H BUN 21 H Creatinine 0.73 Estimated GFR > 60.0 BUN/Creatinine Ratio 28.8 H Glucose 102 Lactate Calcium 10.0 Magnesium Ferritin Total Bilirubin 0.9 AST 52 ALT 27 Alkaline Phosphatase 114 Lactate Dehydrogenase Total Creatine Kinase CK-MB (CK-2) CK-MB (CK-2) Rel Index Troponin I C-Reactive Protein NT-Pro-B Natriuret Pep Cancelled Total Protein 8.4 H Albumin 4.6 Globulin 3.8 Albumin/Globulin Ratio 1.2 Procalcitonin Urine RBC Urine WBC Urine Bacteria Ur Culture Indicated? Chlamy pneumoniae PCR Adenovirus (PCR) B.parapertussis DNA PCR Coronavirus OC43 (PCR) Coronavirus HKU1 (PCR) Coronavirus 229E (PCR) COVID-19 PCR Coronavirus NL63 (PCR) Human Metapneumovir PCR Influenza Type A (PCR) Influenza Type B (PCR) M. pneumoniae (PCR) Parainfluenza 1 (PCR) Parainfluenza 2 (PCR) Parainfluenza 3 (PCR) Parainfluenza 4 (PCR) RSV (PCR) Entero/Rhino (PCR) 04/10/20 04/10/20 04/10/20 19:05 19:05 19:05 WBC RBC Hgb Hct MCV MCH MCHC RDW Plt Count Neut % (Auto) Lymph % (Auto) Waller % (Auto) Eos % (Auto) Baso % (Auto) Neut # (Auto) Lymph # (Auto) Waller # (Auto) Eos # (Auto) Baso # (Auto) PT INR D-Dimer 1609 H ABG pH ABG pCO2 ABG pO2 ABG HCO3 ABG Total CO2 ABG O2 Saturation ABG Base Excess FiO2 Sodium Potassium Chloride Carbon Dioxide BUN Creatinine Estimated GFR BUN/Creatinine Ratio Glucose Lactate 1.1 Calcium Magnesium Ferritin Total Bilirubin AST ALT Alkaline Phosphatase Lactate Dehydrogenase Total Creatine Kinase CK-MB (CK-2) CK-MB (CK-2) Rel Index Troponin I C-Reactive Protein NT-Pro-B Natriuret Pep Total Protein Albumin Globulin Albumin/Globulin Ratio Procalcitonin 0.70 H Urine RBC Urine WBC Urine Bacteria Ur Culture Indicated? Chlamy pneumoniae PCR Adenovirus (PCR) B.parapertussis DNA PCR Coronavirus OC43 (PCR) Coronavirus HKU1 (PCR) Coronavirus 229E (PCR) COVID-19 PCR Coronavirus NL63 (PCR) Human Metapneumovir PCR Influenza Type A (PCR) Influenza Type B (PCR) M. pneumoniae (PCR) Parainfluenza 1 (PCR) Parainfluenza 2 (PCR) Parainfluenza 3 (PCR) Parainfluenza 4 (PCR) RSV (PCR) Entero/Rhino (PCR) 04/10/20 04/10/20 04/10/20 19:05 19:05 19:05 WBC RBC Hgb Hct MCV MCH MCHC RDW Plt Count Neut % (Auto) Lymph % (Auto) Waller % (Auto) Eos % (Auto) Baso % (Auto) Neut # (Auto) Lymph # (Auto) Waller # (Auto) Eos # (Auto) Baso # (Auto) PT INR D-Dimer ABG pH ABG pCO2 ABG pO2 ABG HCO3 ABG Total CO2 ABG O2 Saturation ABG Base Excess FiO2 Sodium Potassium Chloride Carbon Dioxide BUN Creatinine Estimated GFR BUN/Creatinine Ratio Glucose Lactate Calcium Magnesium 1.6 Ferritin 18 Total Bilirubin AST ALT Alkaline Phosphatase Lactate Dehydrogenase 631 H Total Creatine Kinase 580 H CK-MB (CK-2) 5.26 H CK-MB (CK-2) Rel Index 0.9 L Troponin I 0.030 C-Reactive Protein 1.2 H NT-Pro-B Natriuret Pep 56 Total Protein Albumin Globulin Albumin/Globulin Ratio Procalcitonin Urine RBC Urine WBC Urine Bacteria Ur Culture Indicated? Chlamy pneumoniae PCR Adenovirus (PCR) B.parapertussis DNA PCR Coronavirus OC43 (PCR) Coronavirus HKU1 (PCR) Coronavirus 229E (PCR) COVID-19 PCR Coronavirus NL63 (PCR) Human Metapneumovir PCR Influenza Type A (PCR) Influenza Type B (PCR) M. pneumoniae (PCR) Parainfluenza 1 (PCR) Parainfluenza 2 (PCR) Parainfluenza 3 (PCR) Parainfluenza 4 (PCR) RSV (PCR) Entero/Rhino (PCR) 06/05/20 06/05/20 06/05/20 19:11 19:57 20:49 WBC RBC Hgb Hct MCV MCH MCHC RDW Plt Count Neut % (Auto) Lymph % (Auto) Waller % (Auto) Eos % (Auto) Baso % (Auto) Neut # (Auto) Lymph # (Auto) Waller # (Auto) Eos # (Auto) Baso # (Auto) PT INR D-Dimer ABG pH 7.49 H ABG pCO2 43.3 ABG pO2 62 L ABG HCO3 33 H ABG Total CO2 34 H ABG O2 Saturation 93 L ABG Base Excess 9.0 H FiO2 32 Sodium Potassium Chloride Carbon Dioxide BUN Creatinine Estimated GFR BUN/Creatinine Ratio Glucose Lactate Calcium Magnesium Ferritin Total Bilirubin AST ALT Alkaline Phosphatase Lactate Dehydrogenase Total Creatine Kinase CK-MB (CK-2) CK-MB (CK-2) Rel Index Troponin I C-Reactive Protein NT-Pro-B Natriuret Pep Total Protein Albumin Globulin Albumin/Globulin Ratio Procalcitonin Urine RBC None seen Urine WBC None seen Urine Bacteria None seen Ur Culture Indicated? Cult not indicated Chlamy pneumoniae PCR Adenovirus (PCR) B.parapertussis DNA PCR Coronavirus OC43 (PCR) Coronavirus HKU1 (PCR) Coronavirus 229E (PCR) COVID-19 PCR Negative Coronavirus NL63 (PCR) Human Metapneumovir PCR Influenza Type A (PCR) Influenza Type B (PCR) M. pneumoniae (PCR) Parainfluenza 1 (PCR) Parainfluenza 2 (PCR) Parainfluenza 3 (PCR) Parainfluenza 4 (PCR) RSV (PCR) Entero/Rhino (PCR) 04/10/20 04/11/20 04/11/20 23:10 02:05 02:05 WBC 24.7 H RBC 2.98 L Hgb 8.5 L Hct 26.2 L MCV 88.0 MCH 28.6 MCHC 32.5 RDW 14.6 Plt Count 281 Neut % (Auto) 88.1 H Lymph % (Auto) 4.6 L Waller % (Auto) 6.9 Eos % (Auto) 0.1 L Baso % (Auto) 0.3 Neut # (Auto) 14345 H Lymph # (Auto) 1100 Waller # (Auto) 1700 H Eos # (Auto) 0 Baso # (Auto) 100 PT INR D-Dimer ABG pH ABG pCO2 ABG pO2 ABG HCO3 ABG Total CO2 ABG O2 Saturation ABG Base Excess FiO2 Sodium 126 L Potassium 4.9 Chloride 91 L Carbon Dioxide 31 BUN 37 H Creatinine 0.77 Estimated GFR > 60.0 BUN/Creatinine Ratio 48.1 H Glucose 104 Lactate Calcium 8.9 Magnesium Ferritin Total Bilirubin AST ALT Alkaline Phosphatase Lactate Dehydrogenase Total Creatine Kinase CK-MB (CK-2) CK-MB (CK-2) Rel Index Troponin I C-Reactive Protein NT-Pro-B Natriuret Pep Total Protein Albumin Globulin Albumin/Globulin Ratio Procalcitonin Urine RBC Urine WBC Urine Bacteria Ur Culture Indicated? Chlamy pneumoniae PCR Not detected Adenovirus (PCR) Not detected B.parapertussis DNA PCR Not detected Coronavirus OC43 (PCR) Not detected Coronavirus HKU1 (PCR) Not detected Coronavirus 229E (PCR) Not detected COVID-19 PCR Coronavirus NL63 (PCR) Not detected Human Metapneumovir PCR Not detected Influenza Type A (PCR) Not detected Influenza Type B (PCR) Not detected M. pneumoniae (PCR) Not detected Parainfluenza 1 (PCR) Not detected Parainfluenza 2 (PCR) Not detected Parainfluenza 3 (PCR) Not detected Parainfluenza 4 (PCR) Not detected RSV (PCR) Not detected Entero/Rhino (PCR) Not detected 04/11/20 04/11/20 02:05 02:05 WBC RBC Hgb Hct MCV MCH MCHC RDW Plt Count Neut % (Auto) Lymph % (Auto) Waller % (Auto) Eos % (Auto) Baso % (Auto) Neut # (Auto) Lymph # (Auto) Waller # (Auto) Eos # (Auto) Baso # (Auto) PT INR D-Dimer ABG pH ABG pCO2 ABG pO2 ABG HCO3 ABG Total CO2 ABG O2 Saturation ABG Base Excess FiO2 Sodium Potassium Chloride Carbon Dioxide BUN Creatinine Estimated GFR BUN/Creatinine Ratio Glucose Lactate Calcium Magnesium Ferritin Total Bilirubin AST ALT Alkaline Phosphatase Lactate Dehydrogenase Total Creatine Kinase CK-MB (CK-2) CK-MB (CK-2) Rel Index Troponin I 0.046 H C-Reactive Protein NT-Pro-B Natriuret Pep Total Protein Albumin Globulin Albumin/Globulin Ratio Procalcitonin 1.73 H Urine RBC Urine WBC Urine Bacteria Ur Culture Indicated? Chlamy pneumoniae PCR Adenovirus (PCR) B.parapertussis DNA PCR Coronavirus OC43 (PCR) Coronavirus HKU1 (PCR) Coronavirus 229E (PCR) COVID-19 PCR Coronavirus NL63 (PCR) Human Metapneumovir PCR Influenza Type A (PCR) Influenza Type B (PCR) M. pneumoniae (PCR) Parainfluenza 1 (PCR) Parainfluenza 2 (PCR) Parainfluenza 3 (PCR) Parainfluenza 4 (PCR) RSV (PCR) Entero/Rhino (PCR) Assessment & Plan Assessment & Plan narrative: This is a 65-year-old male who presents with a 2 day history of worsening shortness of breath developing blood tinged sputum today with associated fevers and chills and increasing oxygen requirement in the setting of COPD. 1. Acute respiratory failure with hypoxemia,, present on admission, active -patient with a history of emphysema and is on home O2 at 2-4 liters/minute. Complaints of increasing shortness of breath for 2 days developing blood tinged cough. -patient presented with increasing hypoxemia progressive for 2 days requiring increase in oxygen level to 3.5, upon arrival respiratory rate is 30 heart rate is 116. -arterial blood gas reveals a pH of 7.49, pCO2 of 33.3, PO2 62, bicarb 33 with a base excess +9 on 32% FiO2. -multiple etiologies for hypoxemia including: COPD exacerbation-PF ratio 193.75, a gradient 109.8 with expected 86. Past history of smoking greater than 40 pack years. Pulmonary embolism-elevated D-dimer at 1609, CTA finds no central filling deficits and is negative for pulmonary embolism. Pneumonia- aspiration pneumonia with debris remaining in the esophagus on CT scan with history of CVA and dysphagia. Pneumonia-bacterial versus viral versus COVID-19, patient with elevated white count at 22 with increased neutrophils of 91.7%, increased procalcitonin an elevated CRP at 1.2 and patient initially afebrile upon arrival however temperature increased to 100.3 on admission to the floor. -respiratory therapy to consult evaluate and treat, supplemental oxygen as needed maintain oxygen saturation 88-92 %, currently on heated, high-flow oxygen. -incentive spirometry every 2 hours while awake and flutter valve twice daily. -Covid negative on admission 2. Sepsis with respiratory compromise, present on admission, active. -patient with an elevated temperature upon arrival to the floor 100.3, has an elevated white count of 22.2 with increased neutrophils of 91.7 %, CRP of 1.2, procalcitonin 0.70. No extremity swelling or findings consistent with DVT. -sofa score is 3 based on pulmonary compromise with a PF ratio of 193.75. -the patient received sepsis bolus in the ER with 2100 cc of normal saline, blood cultures are drawn and he is started on Levaquin 750 mg IV. -will follow septic markers including white count and procalcitonin. 3. Probable pneumonia, acute, present on admission, active. -patient with cough developing blood-tinged sputum today, complaints of fevers and chills. -pneumonia not evident on chest x-ray or CT, imaging identifies only minimal streaky opacities in the lung bases, clinically patient with coarse breath sounds diminished bibasilar breath sounds. -white blood count is 22.2, neutrophils 91.7%, CRP 1.2, procalcitonin 0.7. Pneumonia severity index is 127, classIV with 30 day mortality rate of 8.2%. -Supplemental oxygen to maintain saturation 88-92%, ordered albuterol and DuoNeb treatments. -ordered Lovenox 750 mg daily, 1st dose administered in the ER. -ordered azithromycin 500 mg IV daily. -04/11 start on Zosyn -continue home regimen of Dulera 2 puffs twice daily. -04/11 repeat CXR again without clearly evident infiltrates 4. Esophageal stricture, chronic -the patient has a prior history of esophageal stricture undergoing balloon dilation 2 years ago. -on CT scan, debris is identified in the esophagus increasing the risk for aspiration. -the patient is not coughing on thin liquids however ordered dysphagia diet. -speech therapy recommends NPO until Modified Barium Swallow can be done on Friday 04/13 -will continue home medication of Protonix 40 mg daily - consult with Dr. Escobar 04/11 5. 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 -the patient resides at [facility] and states that he is nonambulatory. -he has right arm splint and right lower leg AFO. -PT and OT consult to evaluate and treat. -will continue home regimen of gabapentin 600 mg 3 times daily and baclofen 20 mg 3 times daily. 6. Essential hypertension, chronic, stable. -patient with a blood pressure 152/89 upon arrival. Blood pressure improves to 126/68 upon arrival to floor. -continue home regimen of benazepril 40 mg daily and amlodipine 10 mg daily. 7. Hyperlipidemia, chronic, stable. -will continue home regimen of atorvastatin 40 mg daily at bedtime. 8. Nicotine dependence, chronic, stable. -patient quit smoking in July of 2019, he has been using nicotine lozenges at [facility]. -ordered Nicoderm patch daily. 9. Leukocytosis -Suspect esophageal process versus occult pneumonia -Antibiotic coverage of Azithromycin and Zosyn -Follow daily CBC -GS consult for esophagus Isolation: Not indicated with Covid/Respiratory Panel both negative VTE prophylaxis: Bilateral compression hose, Hold Enoxaparin due to hemoptysis IV fluid: Normal saline 100 cc/hour Diet: Heart healthy low-sodium dysphagia diet Code status: FULL CODE, patient's friend El Nielsen is is surrogate decision maker. Quality VTE Deep Vein Thrombosis/Pulmonary Embolism Present on Admission: No
[2020-04-11] MEDS: ALBUTEROL/IPRATROPIUM 3 ML AMPUL INH ×2 (09:18→20:30)
--- NOTE | 2020-04-11 10:21 | PT.IIE ---
Current Diagnoses Acute respiratory failure with hypoxia (04/10/20) Medical History (Last Reviewed 04/10/20 @ 23:44 by XAVIER Santos) Anemia, unspecified (Acute) Calculus of gallbladder without cholecystitis (Acute) Chronic obstructive pulmonary disease (Acute) Contracture, right elbow (Acute) Dysphagia (Acute) Esophageal obstruction (Acute) Essential hypertension (Acute) Hemiplegia and hemiparesis following cerebral infarction affecting right dominant side (Acute) Major depressive disorder (Acute) Melena (Acute) Neoplasm of uncertain behavior (Acute) Other nonspecific abnormal finding of lung field (Acute) Other reduced mobility (Acute) Other sequelae of cerebral infarction (Acute) Pneumonitis due to inhalation of food and vomit (Acute) Ulcer of esophagus with bleeding (Acute) Unspecified abnormal involuntary movements (Acute) Physical Therapy Inpatient Evaluation/Re-Eval M1 PT/OT-IP Prior Functional Status Start: 04/11/20 14:59 Freq: NEEDED Status: Active Protocol: Document 04/11/20 10:21 AB (Rec: 04/11/20 15:20 AB [id number]) Medical Review Prior Functional Status Medical History Reviewed Yes Communication unclear speech with (+) drooling affecting speech Mobility and Gait pt is unable to provide consistent information. Per [facility] nurse: pt requires max A for bed mobility, 2 person max A for transfers using a tripod cane , uses a power w/c for mobility and is non-ambulatory Activities of Daily Living and IADL's per [facility] nurse: pt requires one person assist with dressing, pt uses his LUE to assist, able to put his AFO on , independent with eating/feeding Prior Functional Level (Other details) per [facility] nurse: pt just got admitted to there facility from his home and was using a transfer pole at home to transfer. nurse stated that they just go a transfer pole for him but is yet to be installed. Social History Household Members caregiver Living Arrangements [facility] Facility Number of Stairs To Enter/Railing? Pt lives at [facility] Home Environment Walk in Shower Home Equipment Power Wheelchair/Scooter, Bedside Commode,Shower Seat with Backrest,Hand Held Shower ,Grab Bars In Shower M2 PT-IP Current Condition Start: 04/11/20 14:59 Freq: NEEDED Status: Active Protocol: Document 04/11/20 10:21 AB (Rec: 04/11/20 15:20 AB [id number]) Physical Therapy Current Condition Current Condition Evaluation Date 04/11/20 Treatment Diagnosis Acute respiratory failure w/ hypoxemia; sepsis; generalized weakness Onset Date 04/10/20 Precautions Brace R AFO M3 PT-IP Subjective Start: 04/11/20 14:59 Freq: NEEDED Status: Active Protocol: Document 04/11/20 10:21 AB (Rec: 04/11/20 15:20 AB [id number]) Subjective Physical Therapy Visit Type Type Initial Evaluation Visit Start Time 10:21 Visit Stop Time 10:51 Total Visit Minutes 30 Number of REQUIREMENTS MANAGER Visits 0 Physical Therapy Visit Comments Patient Comments pt is restless and moaning but when asked what he needs is unable to state M4 PT-IP Mobility and Gait Start: 04/11/20 14:59 Freq: NEEDED Status: Active Protocol: Document 04/11/20 10:21 AB (Rec: 04/11/20 15:20 AB [id number]) PT-Transfer Assessment Sit to and From Stand Sit to and from Stand Maximum Assistance,2 Person Assistance,Use of Upper Extremities Equipment Transfer Assistive Device Gait Belt,Alexander Walker Comments Mobility Comments pt sitting on EOB and is very restless and moaning. pt has esophageal stricture and has ( +) blood with his saliva/ sputum. asked regarding PLOF and only got limited information. pt is able to sit on EOB SBA. pt agreed to stand and completed with 2 person max A and max cues and used hemiwalker for support but refused to sit on recliner. pt was able to stand for ~ 15 sec and stated that he has to sit down. required max A x 2 for descent onto EOB. pt refused to do bed mobility and wants to just sit on EOB. pt with confusion and is hard to direct. Left pt with NAC. pt currently is one one one nurse supervision PT-Balance Assessment Sitting Balance and Reactions Static Sitting Balance Ability Good Dynamic Sitting Balance Ability Good Standing Balance and Reactions Static Standing Balance Ability Fair Dynamic Standing Balance Ability Poor Device Used hemiwalker M5 PT-IP Objective Assessments Start: 04/11/20 14:59 Freq: NEEDED Status: Active Protocol: Document 04/11/20 10:21 AB (Rec: 04/11/20 15:20 AB [id number]) Orientation Orientation/Cognition Level of Alertness Confusional State Orientation Name Safety Awareness Decreased Safety Awareness Strength Comments Strength Comments unable to test strength as pt is very restless and is easily agitated M7 PT-IP Assessment and Plan Start: 04/11/20 14:59 Freq: NEEDED Status: Active Protocol: Document 04/11/20 10:21 AB (Rec: 04/11/20 15:20 AB [id number]) PT Summary Assessment and Plan Potential Rehabilitation Potential Fair Status of Condition at Evaluation Evolving Summary Impairments Pain,ROM,Strength,Balance, Coordination,Sensation,Tone, Cognition,Bed Mobility, Transfers,Gait,Activity Tolerance Assessment Summary pt admitted here in the hospital for respiratory failure and sepsis. pt has h/ o R hemiplegia and is non ambulatory. pt is restless and easily agitated and unable to tolerate much activity. pt was able to complete standing using a hemiwalker with max A x 2 and max cues. further assessment required to determine safe d/c plan but pt may require SNF rehab. Goals Bed Mobility Goal Moderate Assistance Transfer Goal Moderate Assistance Other Goals improve stand pivot transfer mod A using hemiwalker Days to Meet Goals 10 Frequency of Treatment Frequency Of Treatment Once a Day Treatment Plan Physical Therapy Treatment Plan Bed Mobility Training,Transfer Training,Gait Training, Therapeutic Exercise,Balance Retraining,Discharge Planning, Neuromuscular Re-ed, Coordination Retraining,Manual Therapy Other Recommendations and Next Treatment transfers Focus Recommendations To Nursing Amount of Assist Needed 2 Person Assist,Mechanical Lift Discharge Recommendations PT Discharge Recommendations SNF Rehab Transportation Needs at Discharge Wheelchair/Cabulance
--- NOTE | 2020-04-11 10:44 | RT ---
Night MD ordered IS/Acapella last night. IS issued to patient, he had poor effort and gets frustrated doing it. Vols of ~500 seen. Pt has copious clear secretions and drools continously. Also seems to cough often, and when he does, he has hemoptsys and expectorates large amts bright red blood. Acapella also started, pt is unable to do this. I reported all this to Dr Wilson.
--- NOTE | 2020-04-11 11:02 | ST.IPCSEOM ---
Visit Care Team Role Provider Type Juvencio Price MD Primary Care Provider Non-Staff Specialty: Medical Address: [address] [place] [address] [address], [place], [address] Email: Lio Saleem DO Emergency Provider Physician Referring Provider Specialty: Emergency Medicine Address: [address] [place] [address], [id number] Email: [email or web address] Santos Admit Provider Physician Attending Provider Specialty: Internal Medicine Address: [address] [place] [address], [id number] Email: [email or web address] [email or web address] Acute respiratory failure with hypoxia (04/10/20) Past Medical History (Last Reviewed 04/10/20 @ 23:44 by XAVIER Santos) Anemia, unspecified (Acute Medical) Calculus of gallbladder without cholecystitis (Acute Medical) Chronic obstructive pulmonary disease (Acute Medical) Contracture, right elbow (Acute Medical) Dysphagia (Acute Medical) Esophageal obstruction (Acute Medical) Essential hypertension (Acute Medical) Hemiplegia and hemiparesis following cerebral infarction affecting right dominant side (Acute Medical) Major depressive disorder (Acute Medical) Melena (Acute Medical) Neoplasm of uncertain behavior (Acute Medical) Other nonspecific abnormal finding of lung field (Acute Medical) Other reduced mobility (Acute Medical) Other sequelae of cerebral infarction (Acute Medical) Pneumonitis due to inhalation of food and vomit (Acute Medical) Ulcer of esophagus with bleeding (Acute Medical) Unspecified abnormal involuntary movements (Acute Medical) Speech-Language Pathology Swallow Evaluation CHORAL TEACHER Clinical Swallow Evaluation Start: 04/11/20 10:22 Freq: Status: Active Protocol: Document 04/11/20 10:22 MG (Rec: 04/11/20 10:58 MG [id number]) Clinical Swallow Evaluation Session Time Visit Start Time 09:50 Visit Stop Time 10:20 Total Visit Minutes 30 Visit Information Visit Number 1 Setting Assessment Location Acute Care Visit Type Note Type Initial Evaluation Next Note Type Next Note Type Re-Evaluation Patient Information Identification Type Name,ID Wristband History Pt is a 65-year-old male with a 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 The patient is on home O2 at between 2-4 liters/minute titrated up to 3.5 L with increasing shortness of breath that has been progressive over 2 days. Yesterday the patient reports coughing with blood tinged sputum and has been complaining of fevers and chills. He denies headache nasal congestion or sore throat. He has had no complaints of chest pain or palpitations. He reports worsening breathing with an associated cough and has minimal fully active. He reports no abdominal pain or heartburn, nausea or vomiting. The patient states he is nonambulatory at the [facility] the he does have a right arm splint and right AFO . Chest CT performed on 2019 revealed debris in the esophagus. Subjective Observations Pt was found sitting upright in bed with waste bags and call light nearby. Pt was seen to be drooling and spitting into a waste bag. CHORAL TEACHER conducted brief interview with nurse prior to entering the room as the doctor was with the patient. Nurse reported that pt appeared to be having a hard time managing secretions that he spits into a container; some of which contain blood. Pt presents with slurred speech secondary to right side weakness. Pt was not coughing upon CHORAL TEACHER entry. He was agreeable to be evaluated by the CHORAL TEACHER. Pt reported to the CHORAL TEACHER that the excessive drool is new to him. Pt reported that he is experiencing feelings of being full, which may be a result of the debris found in the chest CT. Evaluation Liquids Trialed Thin Administration Type Tea Spoon Oral Impairment Severely Impaired Oral Strategies Upright at 90 degrees, Controlled Bite/Sip Size Oral Phase Comments OME was conducted at bedside. Pt presents with significant right sided facial weakness. Pt appeared to have some difficulty following directions. Pt could not retract or pucker lips. Pt's toungue deviated to the right when asked to protrude it. Examination of the oral cavity revealed poor dentition and excess saliva in the oral cavity. When given two trials of tsp thin liquid, pt was observed to have poor control of the bolus, as noted by anterior spillage on both trials. Pharyngeal Impairment Severely Impaired Pharyngeal Strategies Sitting Upright (90 deg) Pharyngeal Phase Comments Laryngeal palpation revealed reduced hyolaryngeal movement as well as reduced anterior movement of the hyoid bone. On both trials of tsp thin liquid, pt was noted to have an immediate cough and would proceed to spit up. Due to these observations, further trials were not given to the pt for pt safety. Findings Dysphagia Type Oropharyngeal dysphagia Rehabilitation Potential Fair Impressions Pt presents with oropharyngeal dysphagia secondary to overall weakness as noted by OME, laryngeal palpation, and trials of tsp thin liquid. At this time, pt is not safe to have liquid or solid intake and should remain NPO. Further examination via MBSS is highly recommended in order to assess pt's swallow mechanism and determine the least restrictive diet for the pt. Pt reported to the CHORAL TEACHER that he did not know nor had had a MBSS in the past. CHORAL TEACHER went over what an MBSS is and what would happen during an MBSS. Pt appeared agreeable to participate in one. Diet Recommendations Liquids Order NPO Diet Order NPO Medication Recommendations Not Recommended by Mouth Treatment Plan Placement Recommendations after Custodial Facility Discharge Therapy Recommendations MBSS needs to be completed first
[2020-04-11 11:57] LABS: Creatine Kinase 825 U/L (55-170)
--- NOTE | 2020-04-11 12:02 | PC.NURSE ---
Addendum entered by Ree Schroeder R.N. 04/11/20 16:08: Late entry: After bolus started IV in L AC found to be leaking (had been positional all day). Patient a very difficult IV start (two RN's from had tried earlier in the shift and were unable to get a new line). RN came up from ED and was able to start 22g in L thumb area. New IV site unable to tolerate fluids at rate >100 ml/hr, so that's what it's running at now. Needs larger gauge, and more secure, IV access- MD made aware, PICC line ordered and [facility] has been called. Addendum entered by Ree Schroeder R.N. 04/11/20 14:28: Dr Wilson in to see patient, showed him an emesis bag with mixture of saliva and blood (approx 150 ml), and informed that patient has been spitting up like this frequently over the course of the day. NS bolus initiated per order. Per MD he plans to order another CT and surgery consult and he has spoken w/ Dr Escobar who will be up to see patient after she's finished in surgery. Addendum entered by Ree Schroeder R.N. 04/11/20 13:19: Given 10 mg IV Labetalol per new order. HR now 108-110 with patient at rest. BP re-check after admin was 149/79. Patient tolerated well. O2 turned back up to 3L by RT (they came to see patient because patient was requesting 3L as per his usual home routine). BUNDLE CLERK remains 1:1 at bedside. Bed alarm on, call light within reach. Addendum entered by Ree Schroeder R.N. 04/11/20 12:19: Received call from MITER CUTTER reporting heart rate remains elevated, right now HR 140 with patient at rest. Reported HR up into the 150's-160's when we were providing patient care. This reported to Dr Wilson, anticipate new order. Original Note: BP/heartrate: BP 145/65, HR in the 120's-130's at rest. This resume writer informed Dr Wilson of the same and let him know patient did not get any of his usual PO meds this morning r/t NPO status. Asked MD if he wanted to order any IV meds for HR/BP, no new orders at this time. Tele monitoring ongoing. BUNDLE CLERK 1:1 with patient.
[2020-04-11 12:10] LABS: Troponin I 0.041 ng/mL (0.01-0.034)
--- NOTE | 2020-04-11 12:10 | CM.DANOTE ---
DCP assessment: EMR reivewed: Patient is a 65 yr old male who was admitted for Acute to respiratory failure with hypoxemia. Patients PCP is Dr Juvencio Price. Cm/Rn met with patient at the bedside and explained CM Role: Patient was alert but was having a difficult time communicating with CM due to Drooling and difficulty breathing. Patient also seemed confused when CM/Rn attempted to talk about SNF options. Patient then stated after about 5 minutes that he would like to go to [facility] if he is able but then was talking about something else. CM was unable to determine what patient was saying due to his mumbling and lack of fluent conversation. CM/Rn contacted patients emergency contact Alex Hess and left a voice mail at [phone]. CM/RN called [facility] to determine patients base line- according to them patient is usually independent with transferring he usually uses a transfer pole and a cane to move from the bed to his electric wheel chair. Patient is usually very alert and orientedx3 he usually carries on conversations with the staff at [facility] regularly. Patient has a mixed soft diet at [facility]. [facility] stated that patient can return to their facility if he is medically stable and does not need a SNF at D/C they will just need to come and evaluate him prior to being admitted back. CM/RN called [facility] and they are reviewing patient for possible admission if patient will need it at D/C. I: [employer] and medicaid Plan: D/C to SNF vrs back to [facility]. [facility] reviewing. Patient will need a PASRR done if going to SNF. Dayanara Nichols RN Discharge Planning/Care Management CM Discharge Assessment Start: 04/11/20 11:58 Freq: Status: Active Protocol: Document 04/11/20 11:58 HS (Rec: 04/11/20 12:10 HS [id number]) Discharge Planning Assessment Assigned Riprap Worker Dayanara Nichols RN Contact Information Alex Hess (Friend) Advance Directives? No History Provided By Patient,Medical Record Has Patient been admitted in last 30 No days? Prior Living Arrangements Skilled Nurse Facility Comment Patient has been living at [facility] since last Monday03/31/2020. Household Members none Type of transpiration used prior to Relies on Others admit Willing to Return to Facility? Yes: [facility] Independent with ADL's No Is patient alert and oriented? No: Patient is usually A&O at base line Needs Assistance With Bathing,Grooming,Toileting Caregiver for Another No DME Already Rented / Owned Wheelchair,Cane Comment Patient has a motorized wheel chair that he uses daily- to transfer he uses a transfer pole and a cane at base line. Patient/Family Preference Group Home Facility Discharge Plan Group Home Facility Referrals Initiated Group Home Additional Comment Called Josephine at [facility] they are reviewing If patient plan is SNF: Has PASSR been No completed? Inpatient Status as of 04/10/20 Medicare Choice List Provided Yes SNF/HH Preference [facility] Contact Name/Phone April [phone] Has Agency SNF been contacted Yes Whiteboard Updated in Patient Room with Yes name and ext. # of [facility]ip[facility] Worker Review Status In Process Next Review Type Continued Stay Review
[2020-04-11 12:12] LABS: CKMB % Relative Index 0.9 % (1.5-5.0)
[2020-04-11 12:31] LABS: Add Manual Diff / Slide Review NO; Basophils Absolute Auto 0 /uL (0-100); Basophils Percent Auto 0.2 % (0-2); Eosinophils Absolute Auto 0 /uL (0-450); Hematocrit 25.4 % (41-53); Hemoglobin 8.2 g/dL (13.5-17.5); Lymphocytes Absolute Auto 1100 /uL (1100-4500); Lymphocytes Percent Auto 4.4 % (25-40); Mean Corpuscular HGB Conc 32.4 % (30-36); Mean Corpuscular Hemoglobin 28.5 PG (26-34); Mean Corpuscular Volume 87.9 fL (80-100); Monocytes Absolute Auto 1100 /uL (0-900); Monocytes Percent Auto 4.4 % (3-14); Neutrophils Absolute Auto 22800 /uL (1500-7000); Platelet Count 283 X10^3/uL (150-400); Red Blood Cell Count 2.89 X10^6/uL (4.5-5.9); Red Cell Distribution Width 14.6 % (11.6-14.8)
[2020-04-11] MEDS: LABETALOL 20 MG/4 ML SYRINGE 10 MG IV (12:42)
[2020-04-11] MEDS: PIPERACILLIN-TAZO 3.375 GM/50 ML FROZ.PIGGY IV ×2 (12:55→22:59)
[2020-04-11 13:00] LABS: Procalcitonin 3.18 ng/mL (<0.5)
[2020-04-11 13:11] LABS: Lactate (Lactic Acid) 1.5 mmol/L (0.7-2.1)
[2020-04-11 13:12] LABS: BUN Creatinine Ratio 54.2 (6-22); Blood Urea Nitrogen 45 mg/dL (9-20); Calcium 9.2 mg/dL (8.4-10.2); Carbon Dioxide 30 mmol/L (22-32); Chloride 94 mmol/L (98-107); Creatine Kinase 963 U/L (55-170); Estimated Glomerular Filt Rate > 60.0 mL/min (>60); Glucose 117 mg/dL (80-110); HEMOLYSIS < 15 (0-50); Potassium 4.5 mmol/L (3.4-5.1); Sodium 132 mmol/L (137-145)
[2020-04-11] MEDS: SODIUM CHLORIDE 0.9% 1,000 ML 1000 ML IV (14:24)
[2020-04-11] MEDS: ALBUTEROL 2.5 MG/3 ML NEB (ADULT) INH (15:08)
[2020-04-11] MEDS: FLUCONAZOLE 200 MG/100 ML PIGGYBACK 100 MG IV (15:57)
--- NOTE | 2020-04-11 16:01 | PM.EVENT ---
Event Note Date Patient Seen: 04/11/20 Time Patient Seen: 16:00 Event Note: ICU Critical Care note Between 4:00 p.m. and 7:00 p.m. for a total of 180 minutes I was at bedside involved in critical care management due to the various complications described below. The patient continued to drool, unable to breathe or swallow, leaning forward, with a rising total CK, procalcitonin and elevated white blood count. General surgery was consulted with recommendation to proceed with abdominal/pelvic CT to evaluate for the cause of these abnormalities. It became clear that sedation/intubation for airway protection and to ensure adequate visualization from the CT scan would require intubation. He was transferred to the intensive care unit and in conjunction with the emergency department physician he was consented and intubated. This involved the use of the glide scope and the bougie and was a challenging intubation due to his kyphotic neck posturing. The ETT was confirmed in place. Propofol and succinylcholine were used during the intubation. Several minutes after this part of the process he became hypotensive. He had been receiving a 1 L IV saline bolus, ultimately receiving 3 L, and venous access had been a challenge. There was blood noted in the ET tube and later on in sequence blood was noted in the NG tube. The hypotension was addressed with the IV fluid bolus, 1 unit of universal donor packed red blood cells and eventually the use of Levophed. He continued to produce urine although quite oliguric but clear yellow. His systolic dropped into the 50-70 range and stayed there for prolonged period of time as these interventions were made. Propofol was held at times and then had to be rebolused as he would become more alert. Eventually the blood pressure recovered but then he became tachycardic with what turned out to be junctional tachycardia. This is what precipitated the code blue but no pulse was ever lost and there was never any V-tach. This was addressed by stopping the Levophed, ultimately lowering the infusion rate A PICC line was placed, improving venous access but when that became troublesome I attempted a left femoral line unsuccessfully. An NG-tube was placed which also showed blood aspiration from the stomach. This was impressive but not copious. The hemoglobin came back at 6.1. The final ABG done as I was leaving at the end of this sequence was a pH is 7.30 pCO2 of 56.9, PO2 of 505 and bicarb of 28. We had turned his oxygen up to 100% FIO2 when we could not establish O2 saturation monitoring and the initial ABG showed severe hypoxia. This appeared to have been a venous blood gas, potentially diluted, as the follow-up ABG was much improved without any significant change in the patient's appearance. Throughout this whole sequence he remained responsive and showed the appropriate intolerance of the ET tube whenever the propofol drip had to be lowered. The patient was turned over to the oncoming hospitalist and subsequently underwent CT scanning. At various times in this prolonged episode of bedside critical care general surgery was also involved as was the emergency room doctor.
--- NOTE | 2020-04-11 16:06 | PM.CN ---
History of Present Illness Consult details Date Patient Seen: 04/11/20 Time Patient Seen: 16:07 Chief complaint: blood in sputum Reason for consult: Elevated WBC unknown source, esophageal stricture; esophageal debris Requesting provider: Nevaeh Wilson Narrative: This is a 65 yo man with h/o of CVA with residual right hemiplegia, hemiparesis and visual impairment, seizures, emphysema, dysphagia with esophageal stricture status post balloon dilation 2 years ago, aspiration pneumonitis, cholelithiasis and nicotine dependence was admitted to the medicine service last PM for SOB. I was not able to obtain a clear history from the patient due to his aphasia. Per the hospitalist note, the patient is on home O2 at between 2-4 liters/minute titrated up to 3.5 L with increasing shortness of breath that has been progressive over 2 days. On the day of admission, the patient reported coughing with blood tinged sputum and complained of fevers and chills. Per report, the patient is nonambulatory at the care center the he does have a right arm splint and right AFO. On my interview with him, the patient denied chest pain, shortness of breath, abdominal pain, rectal pain. ROS: complete ROS was not possible because patient was not able to give clear verbal responses. PE: GENERAL: Alert, agitated, cooperative. Appears older than stated age. Answers questions with mostly incomprehensible speech, one or two clear words HENT: Normocephalic, atraumatic. Hearing intact. Oral mucosa is pink and moist. EYES: Conjunctiva pink, sclera white, no periorbital swelling. CARDIOVASCULAR: Regular rate. No pedal edema. RESPIRATORY: Non-tachypneic, breathing comfortably on room air. GASTROINTESTINAL: Abdomen soft and non-distended; non tender in all quadrants and epigastrium, no masses ETHAN: no TTP, no masses, no abscess; normal brown stool; no blood GENITALURINARY: No flank tenderness. MUSCULOSKELETAL: Right hemiparesis; right arm splint SKIN: Warm, dry, soft, appropriate color for ethnicity. No other lesions, rashes, or wounds. NEURO: Alert; oriented to self. Hemiplegia; dysarthria, c/w history of stroke affecting his right side PSYCH: Irritable mood Meds Home Medications and Allergies Home Medications Medication Instructions Recorded Confirmed Type acetaminophen 500 mg PO TID 04/10/20 04/10/20 History albuterol sulfate 2.5 mg INHALATION QID PRN 04/10/20 04/10/20 History amlodipine 10 mg PO QAM 04/10/20 04/10/20 History aspirin [Adult Low Dose Aspirin] 81 mg PO QAM 04/10/20 04/10/20 History atorvastatin 40 mg PO BEDTIME 04/10/20 04/10/20 History baclofen 20 mg PO TID 04/10/20 04/10/20 History benazepril 40 mg PO QAM 04/10/20 04/10/20 History ferrous sulfate 325 mg PO QAM 04/10/20 04/10/20 History gabapentin 600 mg PO TID 04/10/20 04/10/20 History ipratropium-albuterol 3 ml INHALATION Q6H PRN 04/10/20 04/10/20 History mometasone-formoterol [Dulera] 2 puff INHALATION BID 04/10/20 04/10/20 History nicotine (polacrilex) 2 mg BUCCAL Q2-4H PRN 04/10/20 04/10/20 History pantoprazole [Protonix] 40 mg PO QAM 04/10/20 04/10/20 History Allergies Allergy/AdvReac Type Severity Reaction Status Date / Time No Known Drug Allergies Allergy Unverified 04/10/20 18:56 Exam Vital Signs (past 8 hours): - 04/11/20 09:38 04/11/20 12:00 04/11/20 12:19 Temperature 99.3 F Pulse Rate 112 H 124 H 140 H Respiratory Rate 28 H 25 H Blood Pressure 145/65 H Pulse Oximetry 99 100 04/11/20 12:54 04/11/20 13:17 04/11/20 15:09 Temperature Pulse Rate 114 H 108 H 95 H Respiratory Rate 22 Blood Pressure 149/79 H Pulse Oximetry 98 04/11/20 15:30 Temperature Pulse Rate 101 H Respiratory Rate 26 H Blood Pressure 147/79 H Pulse Oximetry 98 Oxygen Delivery Method Nasal Cannula Oxygen Flow Rate [address] scan - chest: My impression: Dilated esophagus with air and fluid in it; no IV contrast blush apparent in stomach or esophagus; proper evaluation of esophagus is obscured by aorta full of bright contrast Radiologist's impression: [address] [address] [address] Scan Report Signed Patient: AKIRA AMBROCIO JR HMR#: [id number] : 3Acct:[id number] Age/Sex: 65 / MDate of Service: 04/10/20 Loc: ED Accession Number: [id number] Procedure: CT angio chest PE protocol Ordering Provider: Lio Saleem D.O. PROCEDURE: CT ANGIO CHEST PE PROTOCOL INDICATIONS: SOB, tachycardia, hypoxia, elevated DDimer TECHNIQUE: After the administration of intravenous contrast, 2 mm thick sections acquired from the pulmonary apices to the posterior costophrenic angles. 3-dimensional maximum intensity projection (MIP) coronal and sagittal reformats were then acquired through the thorax. For radiation dose reduction, the following was used: automated exposure control, adjustment of mA and/or kV according to patient size. COMPARISON: [facility], CT, CT CHEST WITHOUT CONTRAST, 09/03/2019, 23:19. [facility], CR, XR CHEST 1V, 04/10/2020, 19:18. FINDINGS: Image quality: Fair. Bolus timing is somewhat delayed with near equal contrast enhancement in the aorta. Artifact related to the patient's arm positioned over the right chest. Pulmonary arteries: Pulmonary arteries are normal in size, and demonstrate no intraluminal filling defects to suggest central pulmonary embolism. Lungs and pleura: Extensive emphysematous change. Left upper lobe pulmonary nodule with peripheral lucency measuring 2.3 x 2 cm (), previously 2.2 x 2.1 cm on 09/03/2019. Minimal streaky opacities lung bases. No pleural effusions or pneumothorax. Central and peripheral airways are patent. Mediastinum: Heart size is prominent, without pericardial effusion. No mediastinal or hilar adenopathy. Thoracic aorta is normal in caliber and enhancement. Esophagus is normal in caliber, without hiatal hernia. Debris within the esophagus. Bones and chest wall: Scoliosis. No suspicious bony lesions. Ribs and thoracic spine appear intact throughout. Thyroid gland is unremarkable. No axillary or supraclavicular adenopathy. Abdomen: Visualized upper abdominal solid organs appear normal in the early arterial phase of enhancement. IMPRESSION: Suboptimal evaluation due to artifact. 1. No central pulmonary embolism. 2. No significant acute airspace opacity. Minimal atelectasis. Extensive emphysema. 3. Left upper lobe pulmonary nodule measuring 2.3 cm is not significantly changed compared to August of 2019. Consider further evaluation with PET/CT which may help in excluding underlying malignancy. 4. Debris in the esophagus. This may place the patient at increased risk for aspiration. Dictated by: Elkin Castellon M.D. on 04/10/2020 at 21:05 Approved by: Elkin Castellon M.D. on 04/10/2020 at 21:14 Labs Result Diagrams: 04/11/20 17:48 04/11/20 17:48 Labs: Laboratory Results - last 24 hr 04/10/20 04/10/20 04/10/20 19:05 19:05 19:05 WBC 21.2 H RBC 3.87 L Hgb 11.2 L Hct 33.8 L MCV 87.4 MCH 28.9 MCHC 33.1 RDW 14.7 Plt Count 363 Neut % (Auto) 91.7 H Lymph % (Auto) 4.3 L Grainger % (Auto) 3.7 Eos % (Auto) 0.0 L Baso % (Auto) 0.3 Neut # (Auto) 76867 H Lymph # (Auto) 900 L Grainger # (Auto) 800 Eos # (Auto) 0 Baso # (Auto) 100 PT 12.7 INR 1.1 D-Dimer ABG pH ABG pCO2 ABG pO2 ABG HCO3 ABG Total CO2 ABG O2 Saturation ABG Base Excess FiO2 Sodium 129 L Potassium 5.3 H Chloride 87 L Carbon Dioxide 33 H BUN 21 H Creatinine 0.73 Estimated GFR > 60.0 BUN/Creatinine Ratio 28.8 H Glucose 102 Lactate Calcium 10.0 Magnesium Ferritin Total Bilirubin 0.9 AST 52 ALT 27 Alkaline Phosphatase 114 Lactate Dehydrogenase Total Creatine Kinase CK-MB (CK-2) CK-MB (CK-2) Rel Index Troponin I C-Reactive Protein NT-Pro-B Natriuret Pep Cancelled Total Protein 8.4 H Albumin 4.6 Globulin 3.8 Albumin/Globulin Ratio 1.2 Procalcitonin Urine RBC Urine WBC Urine Bacteria Ur Culture Indicated? Chlamy pneumoniae PCR Adenovirus (PCR) B.parapertussis DNA PCR Coronavirus OC43 (PCR) Coronavirus HKU1 (PCR) Coronavirus 229E (PCR) COVID-19 PCR Coronavirus NL63 (PCR) Human Metapneumovir PCR Influenza Type A (PCR) Influenza Type B (PCR) M. pneumoniae (PCR) Parainfluenza 1 (PCR) Parainfluenza 2 (PCR) Parainfluenza 3 (PCR) Parainfluenza 4 (PCR) RSV (PCR) Entero/Rhino (PCR) 04/10/20 04/10/20 04/10/20 19:05 19:05 19:05 WBC RBC Hgb Hct MCV MCH MCHC RDW Plt Count Neut % (Auto) Lymph % (Auto) Grainger % (Auto) Eos % (Auto) Baso % (Auto) Neut # (Auto) Lymph # (Auto) Grainger # (Auto) Eos # (Auto) Baso # (Auto) PT INR D-Dimer 1609 H ABG pH ABG pCO2 ABG pO2 ABG HCO3 ABG Total CO2 ABG O2 Saturation ABG Base Excess FiO2 Sodium Potassium Chloride Carbon Dioxide BUN Creatinine Estimated GFR BUN/Creatinine Ratio Glucose Lactate 1.1 Calcium Magnesium Ferritin Total Bilirubin AST ALT Alkaline Phosphatase Lactate Dehydrogenase Total Creatine Kinase CK-MB (CK-2) CK-MB (CK-2) Rel Index Troponin I C-Reactive Protein NT-Pro-B Natriuret Pep Total Protein Albumin Globulin Albumin/Globulin Ratio Procalcitonin 0.70 H Urine RBC Urine WBC Urine Bacteria Ur Culture Indicated? Chlamy pneumoniae PCR Adenovirus (PCR) B.parapertussis DNA PCR Coronavirus OC43 (PCR) Coronavirus HKU1 (PCR) Coronavirus 229E (PCR) COVID-19 PCR Coronavirus NL63 (PCR) Human Metapneumovir PCR Influenza Type A (PCR) Influenza Type B (PCR) M. pneumoniae (PCR) Parainfluenza 1 (PCR) Parainfluenza 2 (PCR) Parainfluenza 3 (PCR) Parainfluenza 4 (PCR) RSV (PCR) Entero/Rhino (PCR) 04/10/20 04/10/20 04/10/20 19:05 19:05 19:05 WBC RBC Hgb Hct MCV MCH MCHC RDW Plt Count Neut % (Auto) Lymph % (Auto) Grainger % (Auto) Eos % (Auto) Baso % (Auto) Neut # (Auto) Lymph # (Auto) Grainger # (Auto) Eos # (Auto) Baso # (Auto) PT INR D-Dimer ABG pH ABG pCO2 ABG pO2 ABG HCO3 ABG Total CO2 ABG O2 Saturation ABG Base Excess FiO2 Sodium Potassium Chloride Carbon Dioxide BUN Creatinine Estimated GFR BUN/Creatinine Ratio Glucose Lactate Calcium Magnesium 1.6 Ferritin 18 Total Bilirubin AST ALT Alkaline Phosphatase Lactate Dehydrogenase 631 H Total Creatine Kinase 580 H CK-MB (CK-2) 5.26 H CK-MB (CK-2) Rel Index 0.9 L Troponin I 0.030 C-Reactive Protein 1.2 H NT-Pro-B Natriuret Pep 56 Total Protein Albumin Globulin Albumin/Globulin Ratio Procalcitonin Urine RBC Urine WBC Urine Bacteria Ur Culture Indicated? Chlamy pneumoniae PCR Adenovirus (PCR) B.parapertussis DNA PCR Coronavirus OC43 (PCR) Coronavirus HKU1 (PCR) Coronavirus 229E (PCR) COVID-19 PCR Coronavirus NL63 (PCR) Human Metapneumovir PCR Influenza Type A (PCR) Influenza Type B (PCR) M. pneumoniae (PCR) Parainfluenza 1 (PCR) Parainfluenza 2 (PCR) Parainfluenza 3 (PCR) Parainfluenza 4 (PCR) RSV (PCR) Entero/Rhino (PCR) 04/10/20 04/10/20 04/10/20 19:11 19:57 20:49 WBC RBC Hgb Hct MCV MCH MCHC RDW Plt Count Neut % (Auto) Lymph % (Auto) Grainger % (Auto) Eos % (Auto) Baso % (Auto) Neut # (Auto) Lymph # (Auto) Grainger # (Auto) Eos # (Auto) Baso # (Auto) PT INR D-Dimer ABG pH 7.49 H ABG pCO2 43.3 ABG pO2 62 L ABG HCO3 33 H ABG Total CO2 34 H ABG O2 Saturation 93 L ABG Base Excess 9.0 H FiO2 32 Sodium Potassium Chloride Carbon Dioxide BUN Creatinine Estimated GFR BUN/Creatinine Ratio Glucose Lactate Calcium Magnesium Ferritin Total Bilirubin AST ALT Alkaline Phosphatase Lactate Dehydrogenase Total Creatine Kinase CK-MB (CK-2) CK-MB (CK-2) Rel Index Troponin I C-Reactive Protein NT-Pro-B Natriuret Pep Total Protein Albumin Globulin Albumin/Globulin Ratio Procalcitonin Urine RBC None seen Urine WBC None seen Urine Bacteria None seen Ur Culture Indicated? Cult not indicated Chlamy pneumoniae PCR Adenovirus (PCR) B.parapertussis DNA PCR Coronavirus OC43 (PCR) Coronavirus HKU1 (PCR) Coronavirus 229E (PCR) COVID-19 PCR Negative Coronavirus NL63 (PCR) Human Metapneumovir PCR Influenza Type A (PCR) Influenza Type B (PCR) M. pneumoniae (PCR) Parainfluenza 1 (PCR) Parainfluenza 2 (PCR) Parainfluenza 3 (PCR) Parainfluenza 4 (PCR) RSV (PCR) Entero/Rhino (PCR) 04/10/20 04/11/20 04/11/20 23:10 02:05 02:05 WBC 24.7 H RBC 2.98 L Hgb 8.5 L Hct 26.2 L MCV 88.0 MCH 28.6 MCHC 32.5 RDW 14.6 Plt Count 281 Neut % (Auto) 88.1 H Lymph % (Auto) 4.6 L Grainger % (Auto) 6.9 Eos % (Auto) 0.1 L Baso % (Auto) 0.3 Neut # (Auto) 58334 H Lymph # (Auto) 1100 Grainger # (Auto) 1700 H Eos # (Auto) 0 Baso # (Auto) 100 PT INR D-Dimer ABG pH ABG pCO2 ABG pO2 ABG HCO3 ABG Total CO2 ABG O2 Saturation ABG Base Excess FiO2 Sodium 126 L Potassium 4.9 Chloride 91 L Carbon Dioxide 31 BUN 37 H Creatinine 0.77 Estimated GFR > 60.0 BUN/Creatinine Ratio 48.1 H Glucose 104 Lactate Calcium 8.9 Magnesium Ferritin Total Bilirubin AST ALT Alkaline Phosphatase Lactate Dehydrogenase Total Creatine Kinase CK-MB (CK-2) CK-MB (CK-2) Rel Index Troponin I C-Reactive Protein NT-Pro-B Natriuret Pep Total Protein Albumin Globulin Albumin/Globulin Ratio Procalcitonin Urine RBC Urine WBC Urine Bacteria Ur Culture Indicated? Chlamy pneumoniae PCR Not detected Adenovirus (PCR) Not detected B.parapertussis DNA PCR Not detected Coronavirus OC43 (PCR) Not detected Coronavirus HKU1 (PCR) Not detected Coronavirus 229E (PCR) Not detected COVID-19 PCR Coronavirus NL63 (PCR) Not detected Human Metapneumovir PCR Not detected Influenza Type A (PCR) Not detected Influenza Type B (PCR) Not detected M. pneumoniae (PCR) Not detected Parainfluenza 1 (PCR) Not detected Parainfluenza 2 (PCR) Not detected Parainfluenza 3 (PCR) Not detected Parainfluenza 4 (PCR) Not detected RSV (PCR) Not detected Entero/Rhino (PCR) Not detected 04/11/20 04/11/20 04/11/20 02:05 02:05 11:39 WBC RBC Hgb Hct MCV MCH MCHC RDW Plt Count Neut % (Auto) Lymph % (Auto) Grainger % (Auto) Eos % (Auto) Baso % (Auto) Neut # (Auto) Lymph # (Auto) Grainger # (Auto) Eos # (Auto) Baso # (Auto) PT INR D-Dimer ABG pH ABG pCO2 ABG pO2 ABG HCO3 ABG Total CO2 ABG O2 Saturation ABG Base Excess FiO2 Sodium Potassium Chloride Carbon Dioxide BUN Creatinine Estimated GFR BUN/Creatinine Ratio Glucose Lactate Calcium Magnesium Ferritin Total Bilirubin AST ALT Alkaline Phosphatase Lactate Dehydrogenase Total Creatine Kinase 825 H D CK-MB (CK-2) 7.70 H D CK-MB (CK-2) Rel Index 0.9 L Troponin I 0.046 H 0.041 H C-Reactive Protein NT-Pro-B Natriuret Pep Total Protein Albumin Globulin Albumin/Globulin Ratio Procalcitonin 1.73 H Urine RBC Urine WBC Urine Bacteria Ur Culture Indicated? Chlamy pneumoniae PCR Adenovirus (PCR) B.parapertussis DNA PCR Coronavirus OC43 (PCR) Coronavirus HKU1 (PCR) Coronavirus 229E (PCR) COVID-19 PCR Coronavirus NL63 (PCR) Human Metapneumovir PCR Influenza Type A (PCR) Influenza Type B (PCR) M. pneumoniae (PCR) Parainfluenza 1 (PCR) Parainfluenza 2 (PCR) Parainfluenza 3 (PCR) Parainfluenza 4 (PCR) RSV (PCR) Entero/Rhino (PCR) 04/11/20 04/11/20 04/11/20 11:39 11:39 11:39 WBC 25.0 H RBC 2.89 L Hgb 8.2 L Hct 25.4 L MCV 87.9 MCH 28.5 MCHC 32.4 RDW 14.6 Plt Count 283 Neut % (Auto) 91.0 H Lymph % (Auto) 4.4 L Grainger % (Auto) 4.4 Eos % (Auto) 0.0 L Baso % (Auto) 0.2 Neut # (Auto) 22497 H Lymph # (Auto) 1100 Grainger # (Auto) 1100 H Eos # (Auto) 0 Baso # (Auto) 0 PT INR D-Dimer ABG pH ABG pCO2 ABG pO2 ABG HCO3 ABG Total CO2 ABG O2 Saturation ABG Base Excess FiO2 Sodium Cancelled Potassium Cancelled Chloride Cancelled Carbon Dioxide Cancelled BUN Cancelled Creatinine Cancelled Estimated GFR Cancelled BUN/Creatinine Ratio Cancelled Glucose Cancelled Lactate Calcium Cancelled Magnesium Ferritin Total Bilirubin AST ALT Alkaline Phosphatase Lactate Dehydrogenase Total Creatine Kinase Cancelled CK-MB (CK-2) CK-MB (CK-2) Rel Index Troponin I C-Reactive Protein NT-Pro-B Natriuret Pep Total Protein Albumin Globulin Albumin/Globulin Ratio Procalcitonin 3.18 H Urine RBC Urine WBC Urine Bacteria Ur Culture Indicated? Chlamy pneumoniae PCR Adenovirus (PCR) B.parapertussis DNA PCR Coronavirus OC43 (PCR) Coronavirus HKU1 (PCR) Coronavirus 229E (PCR) COVID-19 PCR Coronavirus NL63 (PCR) Human Metapneumovir PCR Influenza Type A (PCR) Influenza Type B (PCR) M. pneumoniae (PCR) Parainfluenza 1 (PCR) Parainfluenza 2 (PCR) Parainfluenza 3 (PCR) Parainfluenza 4 (PCR) RSV (PCR) Entero/Rhino (PCR) 04/11/20 04/11/20 12:47 12:47 WBC RBC Hgb Hct MCV MCH MCHC RDW Plt Count Neut % (Auto) Lymph % (Auto) Grainger % (Auto) Eos % (Auto) Baso % (Auto) Neut # (Auto) Lymph # (Auto) Grainger # (Auto) Eos # (Auto) Baso # (Auto) PT INR D-Dimer ABG pH ABG pCO2 ABG pO2 ABG HCO3 ABG Total CO2 ABG O2 Saturation ABG Base Excess FiO2 Sodium 132 L Potassium 4.5 Chloride 94 L Carbon Dioxide 30 BUN 45 H Creatinine 0.83 Estimated GFR > 60.0 BUN/Creatinine Ratio 54.2 H Glucose 117 H Lactate 1.5 Calcium 9.2 Magnesium Ferritin Total Bilirubin AST ALT Alkaline Phosphatase Lactate Dehydrogenase Total Creatine Kinase 963 H CK-MB (CK-2) CK-MB (CK-2) Rel Index Troponin I C-Reactive Protein NT-Pro-B Natriuret Pep Total Protein Albumin Globulin Albumin/Globulin Ratio Procalcitonin Urine RBC Urine WBC Urine Bacteria Ur Culture Indicated? Chlamy pneumoniae PCR Adenovirus (PCR) B.parapertussis DNA PCR Coronavirus OC43 (PCR) Coronavirus HKU1 (PCR) Coronavirus 229E (PCR) COVID-19 PCR Coronavirus NL63 (PCR) Human Metapneumovir PCR Influenza Type A (PCR) Influenza Type B (PCR) M. pneumoniae (PCR) Parainfluenza 1 (PCR) Parainfluenza 2 (PCR) Parainfluenza 3 (PCR) Parainfluenza 4 (PCR) RSV (PCR) Entero/Rhino (PCR) Assessment & Plan Assessment and plan (1) Acute exacerbation of chronic obstructive airways disease: Status: Acute (2) Respiratory failure with hypoxia: Qualifiers: Chronicity: acute Qualified Code(s): J96.01 - Acute respiratory failure with hypoxia Status: Acute (3) Anemia, unspecified: Status: Acute (4) Hemiplegia and hemiparesis following cerebral infarction affecting right dominant side: Status: Acute (5) Essential hypertension: Status: Acute (6) Esophageal obstruction: Status: Acute (7) Leukocytosis: Status: Acute Assessment & Plan narrative: This is a 65 yo man with complex medical history, here with anemia and leukocytosis of uknown etiology. The patient is a difficult historian, but denies pain. Upon initially reviewing his case, I recommended CT abdomen/pelvis and repeat chest CT with regular contrast rather than PE protocol, so that his abdomen could be evaluated for a source of WBC, and so that we could get a better eval of his esophagus without the obscuring influence of the PE protocol contrast. Per Dr. Wilson, they had to intubate the patient in order to get him to lie still for the CT. Once he was intubated the patient began dropping his blood pressure. An NGT was placed, and dark blood began draining out. The patient's hemoglobin has now dropped again to <7. It is apparent now that the likely source of his anemia and leukocytosis is in the upper GI tract. EGD may be offered as a diagnostic/therapeutic option once the patient is stable enough to tolerate the procedure. Recommendations: Transfuse up to appropriate level PPI 40mg IV bid or PPI gtt Octreotide gtt Serial hgb Consider EGD for diagnosis and hemostasis when patient is hemodynamically stable; will need surrogate to consent or two doctor emergency consent COVID-19 COVID-19 status: Negative Result date/Date tested (Pos, Neg/Pending): 04/10/20 Time Spent With Patient Time with patient: Greater than 35 minutes
--- NOTE | 2020-04-11 16:16 | PC.NURSE ---
Pt awake and alert in bed. Prefers upright positioning in bed. Continuous pulse oximeter in place. Phone call from INDUSTRIAL PHARMACIST, Madhavi, who informs this television writer pt's HR has not been below 123 since shift began @ 1500. Multiple nurses in with pt attempting new iv access so pt may have ordered CT scan. No success. PICC line placement pending with eta approximately 1 hr 15 min per Zulay ALVAREZ. Discussed pt's status following shift report with charge nurses Alison and Claudia as well as Dr. Wilson. Pt moved to ICU for intubation to protect pt's airway per Dr. Wilson. Madhavi, INDUSTRIAL PHARMACIST, given report. Pt transferred from room 208 via pt's own bed with Dr. Wilson in attendance. Pt transferred with portable oxygen @ 3L per nc. Pt drooling and expectorates approximately one tablespoon quantity of bloody sputum in emesis bag during transport. Head of bed remains upright and pt's position upright as well. To room 230. Tony Shell, accompanies pt to ICU.
--- NOTE | 2020-04-11 16:24 | OT.IPNOTE ---
To see pt for OT eval tomorrow when pt is more medically appropriate. Pt today noted to have had increased HR at rest.
[2020-04-11] MEDS: ETOMIDATE 2 MG/ML 10 ML VIAL 20 MG IV (16:42)
[2020-04-11] MEDS: propofoL 1,000 MG/100 ML VIAL 17.64 MG IV (16:45)
[2020-04-11] MEDS: propofoL 200 MG/20 ML VIAL 145 MG IV ×3 (16:49→17:54)
[2020-04-11] MEDS: fentaNYL 1,000 MCG in DEXTROSE 5% IN WATER 230 ML 12.863 ML IV (17:00)
--- NOTE | 2020-04-11 17:20 | RT ---
ASSISTED DR. MIRANDA AND DR. CARVER WITH INTUBATION OF PATIENT. DR. MIRANDA PERFORMED INTUBATION. BAG/MASK VENTILATION REQUIRED. LOWEST O2 SAT NOTED AT 47% (ONLY FOR APPROX 5 SECONDS), OTHERWISE O2 SAT REMAINED >/= 92%. FIRST ETT PLACEMENT UNSUCCESSFUL. SECOND PLACEMENT CONFIRMED VIA ETCO2 COLOR CHANGE, AND AUSCULTATION. PT WAS INITIALLY INTUBATED WITH ETT #6.5 (SECOND ATTEMPT). CUFF LEAK NOTED DESPITE CUFF FULL OF AIR. 6.5 ETT EXCHANGED FOR 7.0 USING BUGEE DEVICE. ETT SECURED USING ETT MILLAN W/ BITE BLOCK. PLACEMENT CONFIRMED VIA ETCO2 COLOR CHANGE, AUSCULTATION, AND CXR. PT PLACED ON SERVO VENT VIA RT PROTOCOL. DR. CARVER IS AWARE OF ALL SETTINGS.
[2020-04-11] MEDS: NOREPINEPHRINE 4 MG in DEXTROSE 5% IN WATER 250 ML 30.48 ML IV (17:30)
--- NOTE | 2020-04-11 17:37 | RT ---
PER DR. CARVER, DUONEB BID AND ALBUTEROL Q2 PRN TO BE CONTINUED WHILE PT IS VENTED.
[2020-04-11 18:15] LABS: BUN Creatinine Ratio 49.5 (6-22); Blood Urea Nitrogen 49 mg/dL (9-20); Calcium 7.9 mg/dL (8.4-10.2); Carbon Dioxide 26 mmol/L (22-32); Chloride 101 mmol/L (98-107); Estimated Glomerular Filt Rate > 60.0 mL/min (>60); Glucose 129 mg/dL (80-110); HEMOLYSIS < 15 (0-50); Potassium 4.4 mmol/L (3.4-5.1); Sodium 133 mmol/L (137-145)
[2020-04-11 18:22] LABS: Add Manual Diff / Slide Review NO; Basophils Absolute Auto 0 /uL (0-100); Basophils Percent Auto 0.2 % (0-2); Eosinophils Absolute Auto 0 /uL (0-450); Lymphocytes Absolute Auto 1100 /uL (1100-4500); Lymphocytes Percent Auto 5.8 % (25-40); Mean Corpuscular HGB Conc 33.5 % (30-36); Mean Corpuscular Hemoglobin 29.5 PG (26-34); Mean Corpuscular Volume 88.2 fL (80-100); Monocytes Absolute Auto 1000 /uL (0-900); Monocytes Percent Auto 5.5 % (3-14); Neutrophils Absolute Auto 16700 /uL (1500-7000); Neutrophils Percent Auto 88.5 % (50-75); Platelet Count 223 X10^3/uL (150-400); Red Blood Cell Count 2.07 X10^6/uL (4.5-5.9); Red Cell Distribution Width 14.4 % (11.6-14.8); White Blood Cell Count 18.9 X10^3/uL (4.5-11.0)
[2020-04-11 18:26] LABS: Hematocrit 18.3 % (41-53); Hemoglobin 6.1 g/dL (13.5-17.5)
[2020-04-11 19:39] LABS: PCO2 ABG 56.9 mmHg (35-45)
--- NOTE | 2020-04-11 19:39 | ED.CONSULT ---
ED Provider Consult/Code Note General Reason for Admission: blood in sputum Events leading to Consult/Code: Request assistance for rapid sequence intubation for airway protection for patient with hemoptysis. Patient with a stroke. Attending doctor Steve. Please see nurse's notes and the attending's notes for medications they ordered. [place] scope and bougie used for intubation Respiratory Auscultation: clear to auscultation bilaterally ET Tube Size: 6.5 Tube Secured Depth (cm): 23 Tube Secured Location: teeth Tube Placement Confirmation: Visualized tube passing through cords, Equal breath sounds bilaterally, No breath sounds over epigastrium and Confirmation by capnometry
[2020-04-11 19:40] LABS: Fractionated Inspired Oxygen 100; HCO3 ABG 28 mmol/L (22-26); Oxygen Saturation ABG 100 % (95-100); PO2 ABG 505 mmHg (80-100); TCO2 ABG 30 mmol/L (21-31)
[2020-04-11] MEDS: LORazepam 2 MG/ML INJ IV (19:50)
[2020-04-11] MEDS: MIDAZOLAM 50 MG in DEXTROSE 5% IN WATER 250 ML 15 ML IV (20:05)
[2020-04-11 20:17] LABS: Troponin I 0.044 ng/mL (0.01-0.034)
--- NOTE | 2020-04-11 20:50 | DI.CT.S_ITS ---
PROCEDURE: CT CHEST ABD PEL W CON INDICATIONS: sepsis, respiratory failure, internal bleeding TECHNIQUE: After the administration of intravenous contrast, 5 mm thick sections acquired from the lung apices to the symphysis. 5 mm coronal and sagittal reformats were performed, with additional 7 mm MIP reformats through the lungs. For radiation dose reduction, the following was used: automated exposure control, adjustment of mA and/or kV according to patient size. COMPARISON: [facility], US, US ABDOMEN COMPLETE, 03/26/2019, 3:00. Formerly [facility], CR, XR CHEST 1V, 04/11/2020, 18:15. [facility], CT, CT CHEST ABDOMEN PELVIS WITH CONTRAST, 11/28/2018, 12:02. [facility], CT, CT ANGIO CHEST PE PROTOCOL, 04/10/2020, 20:24. FINDINGS: Image quality: Excellent. CHEST: Lungs and pleura: Mild airspace opacity at the right lung base, new compared to 04/10/2020. Severe emphysematous change. Left upper lobe pulmonary nodule with peripheral lucency measuring 2.3 x 2.3 cm, (2/20). Trace right pleural effusion. No pneumothorax. Central and peripheral airways appear patent and normal in caliber. Endotracheal tube in the mid trachea. Mediastinum: Heart size is normal. Coronary artery calcifications. No pericardial effusion. No mediastinal or hilar adenopathy by size criteria. Thoracic aorta and central pulmonary arteries are normal in size. Debris in the esophagus with fluid at the upper esophagus. No hiatal hernia. An enteric tube coursing into the gastric fundus. Chest wall: No axillary or supraclavicular adenopathy by size criteria. Thyroid gland is unremarkable. External pacing pads. Right sided PICC line with the catheter tip at the middle 3rd of the SVC. ABDOMEN: Solid organs: Liver is normal in size and enhancement. Gallbladder is distended. Small layering gallstones. CBD measures 7 mm. No intrahepatic or ductal dilatation. Pancreas enhances normally. Spleen is normal in size and enhancement. No adrenal nodules. Kidneys demonstrate normal size and enhancement, without hydronephrosis. Small renal cortical hypodensities which are too small to further characterize. Peritoneum and bowel: Bowel loops demonstrate normal wall thickness and caliber. No free fluid or air. A few scattered colonic diverticuli. Increased stool in the rectum. Nodes and vessels: No retroperitoneal or mesenteric adenopathy by size criteria. Aorta and inferior vena cava are normal in size. Miscellaneous: No ventral hernias. PELVIS: Genitourinary: Bladder is decompressed with Ann catheter. Prostatomegaly. Miscellaneous: Small left inguinal hernia containing a portion of bowel, (2/117). No adenopathy. Bones: No suspicious bony lesions. No vertebral body compression fractures. IMPRESSION: 1. New airspace opacity at the right lung base. This could represent atelectasis or aspiration. Trace right pleural effusion. 2. Debris and fluid in the esophagus. Enteric tube in the gastric fundus. Endotracheal tube in the expected position. Esophageal wall appears somewhat thickened. 3. Gallbladder distention. Layering gallstones. CBD is mildly distended. 4. Increased stool in the colon. No free fluid. This report is concordant with the overnight preliminary interpretation. Dictated by: Elkin Castellon M.D. on 04/12/2020 at 8:05 Approved by: Elkin Castellon M.D. on 04/12/2020 at 8:21
[2020-04-11] MEDS: SUCCINYLCHOLINE 200 MG/10 ML VIAL 45 MG IV (20:55)
--- NOTE | 2020-04-11 23:18 | PC.NURSE ---
200 ml output from NG.
[2020-04-11 23:27] LABS: Fractionated Inspired Oxygen 30; HCO3 ABG 24 mmol/L (22-26); Oxygen Saturation ABG 96 % (95-100); PCO2 ABG 40.7 mmHg (35-45); PO2 ABG 82 mmHg (80-100); TCO2 ABG 25 mmol/L (21-31); pH ABG 7.38 (7.35-7.45)
[2020-04-11 23:29] LABS: Hematocrit 22.6 % (41-53); Hemoglobin 7.6 g/dL (13.5-17.5)
--- NOTE | 2020-04-11 23:35 | PC.NURSE ---
1630 Received report from CHINEDU Graff as pt was being brought over to room 230 for intubation ordered by Dr. Wilson. Pt was noted to not be protecting his airway. Intubation was initiated at [address] Senior, vitals 174/76 HR 131 resp. 18 O2 100%. Inital medications administered 80mg, suctioning to remove bloody sputum. Intial intubation unsuccessful. Second attempt at 1637, HR 133 BP 205/100 O2 100 RR 27. 1649 Propofol bolus of 40mg, Suctioning with blood sputum, vitals HR 145 187/86 RR 52 O2 92%. 1653 Propofol bolus 40mg x 2 ordered by Provider for pt agitation. 1658 Fentanyl 100 mg vitals Hr 126 BP 97/53 RR 21 O2 96%. Placement confirm via bedside CXR, Medications ordered and Propofol gtt, Levophed gtt, fentanyl gtt (see MAR for rates)NG tube placement to relieve distention of the belly, connected to intermittent wall suction, bright red bloody emesis. Ann catheter placed draining clear, yellow urine. 1754 Pt wakes, propofol 40mg ordered and administered x2. 1800 PICC line placed 1st unit of blood hung HR111 BP 53/27 RR 18, rate increased of Levophed from 4ml/hr to 10 ml/hr. Blood increased to 150 mL/hr vitals HR 107 53/27 RR 18 O2 94%. Second liter bolur started at 1810. 1839 Code Blue called for vtach, pt connected to equipment, no interventions. Dr. Wilson attempted to place a central line, with no success. Levophed gtt increased (see MAR). 1927 vitals 99/54 HR 100 RR 27, see MAR for aditional blood administration documentation. 2134 Pt was taken to CT by this nurse, Charge nurse Claudia, JOSELIN Gleason and RT. 2229 updated provider Mert Johnson on pt status, adjustments made to pt medications/gtts (see MAR for documentation). 2329 Report given to oncoming NOC shift nurses. Vent settings 30% PEEP 5 RR 22 Tidal volume of [address] results show possible TB. No further pt contact at this time.
[2020-04-12] VITALS (27 sets, daily range): BP systolic 87–132; BP diastolic 50–77; PULSE 79–132; RESP 20–29; TEMP 36.1–38.2; O2SAT 96–100
--- NOTE | 2020-04-12 01:52 | PC.NURSE ---
Addendum entered by Joann Hendrickson R.N. 04/12/20 07:19: Patient remains comfortably sedated with Versed now at 3mg/hr. BP low with MAP still >65, see vital trends. Total 350ml dark blood out of NGT for shift. Patient is in Airborne Precautions for TB R/O, and Contact for MRSA in nares. Original Note: Bodywork Therapist Notes-Initial assessment of patient-On ventilator FIO2 .30, PEEP 5, TV 450, riding vent with a RR of 22. Versed titrated down to 5mg/hr, for RASS -3, and BP trending downward, see vital trends, GENERAL DOC provider aware, HR 90s-100. 3rd unit PRBC started as ordered for H/H 7.6/22.6. NGT patent to LIS with dark red blood returned. 0115-BP remains low 80s/50s, MAP 64-65, provider aware. Versed titrated to 4mg/hr, Fentanyl titrated down to 0.5mcg.
--- NOTE | 2020-04-12 02:37 | PM.EVENT ---
Event Note Date Patient Seen: 04/11/20 Time Patient Seen: 19:00 Event Note: Received sign-out at the patient bedside following intubation and mechanical ventilation and hypertension. At the time of sign out the patient is sedated and mechanically ventilated via ET tube. Most recent ABG finds a pH of 7.301, pCO2 56.9, PO2 of 505, bicarbonate of 28.1 with a base excess 2. Discussed mechanical ventilation with respiratory therapy and requested decrease in FiO2 to 30%. Post sedation for intubation the patient with hypertension at 53/27 at 6:02 p.m.. The patient was started on Levophed infusion to maintain a map greater than 62 which was achieved at 10 mcg per minute. As sedation is optimized blood pressure improves and Levophed is weaned off at 11:00 p.m.. The patient was hypertensive with a mean blood pressure of 62 and was presently sedated on propofol 80 micrograms/kilogram per minute. Decrease the propofol infusion to 50 mcg and ordered lorazepam 2 mg IV as needed agitation while bridging to Versed infusion. The patient continues on fentanyl fusion 100 micrograms per hour. Blood pressure further improved with reduction in propofol which was a weaned off by 2300 with Versed infusion at 6 milligrams/hour to titrate to light sedation. The patient is hemoglobin had decreased through the day from 11.2 on admission to 8.5 this morning and ultimately down to 6.1. The patient has received several L of IV fluid however not does not account for the extent of decrease in hemoglobin. Patient's transfused 2 units of packed RBCs. The patient has continued red blood draining from the NG tube and bloody sputum on ET tube suctioning. On recheck of hemoglobin hematocrit at 10:13 p.m. finds hemoglobin of 7.6 and hematocrit of 22.6. Considering the patient's cardiac insult with elevated troponins will target a hemoglobin greater than 8 and an additional unit of packed red cells is ordered. Patient has taken for CT of the chest abdomen and pelvis with findings of: 1. COPD 2. Wall thickening of the mid and distal esophagus considerations would include esophagitis or neoplasm, esophagus is dilated. This finding suggest obstruction. 3. Eccentric nodule left upper lobe is described, consideration include infectious, inflammatory and neoplastic etiologies. Infectious etiology would include tuberculosis or fungus. 4. Small right pleural effusion. 5. Gallbladder hydrops with cholelithiasis. Mild common bile duct dilation. Assessment and plan: -continue mechanical ventilation repeat ABG on new settings. -maintain blood pressure with a MAP greater than 65. -will decrease normal saline to 50 cc/hour to decrease delusional affect. -transfuse 1 additional unit of blood with goal of hemoglobin greater than 8.0. -will trend troponin until downtrending. -sedation is optimized with Versed and fentanyl to titrate to light sedation. -will review CT scan findings with surgery tomorrow, no findings requiring urgent or emergent intervention.
[2020-04-12] MEDS: PIPERACILLIN-TAZO 3.375 GM/50 ML FROZ.PIGGY IV ×4 (04:06→22:52)
[2020-04-12 04:43] LABS: Add Manual Diff / Slide Review NO; Basophils Absolute Auto 100 /uL (0-100); Basophils Percent Auto 0.3 % (0-2); Eosinophils Absolute Auto 0 /uL (0-450); Hemoglobin 8.1 g/dL (13.5-17.5); Lymphocytes Absolute Auto 1100 /uL (1100-4500); Lymphocytes Percent Auto 6.1 % (25-40); Mean Corpuscular HGB Conc 34.2 % (30-36); Mean Corpuscular Hemoglobin 29.2 PG (26-34); Mean Corpuscular Volume 85.4 fL (80-100); Monocytes Absolute Auto 1400 /uL (0-900); Monocytes Percent Auto 8.3 % (3-14); Neutrophils Absolute Auto 14800 /uL (1500-7000); Neutrophils Percent Auto 85.3 % (50-75); Platelet Count 173 X10^3/uL (150-400); Red Blood Cell Count 2.79 X10^6/uL (4.5-5.9); Red Cell Distribution Width 15.7 % (11.6-14.8); White Blood Cell Count 17.4 X10^3/uL (4.5-11.0)
[2020-04-12 04:47] LABS: Hematocrit 23.8 % (41-53)
[2020-04-12 04:51] LABS: Creatine Kinase 681 U/L (55-170)
[2020-04-12 04:52] LABS: BUN Creatinine Ratio 38.3 (6-22); Blood Urea Nitrogen 31 mg/dL (9-20); Calcium 7.4 mg/dL (8.4-10.2); Carbon Dioxide 28 mmol/L (22-32); Chloride 104 mmol/L (98-107); Estimated Glomerular Filt Rate > 60.0 mL/min (>60); Glucose 84 mg/dL (80-110); HEMOLYSIS < 15 (0-50); Potassium 3.6 mmol/L (3.4-5.1); Sodium 134 mmol/L (137-145)
[2020-04-12 05:07] LABS: Procalcitonin 3.87 ng/mL (<0.5)
[2020-04-12] MEDS: MIDAZOLAM 50 MG in DEXTROSE 5% IN WATER 250 ML 15 ML IV (06:42)
--- NOTE | 2020-04-12 07:47 | P.PN_ITS ---
Subjective Subjective Date Patient Seen: 04/12/20 Time Patient Seen: 08:30 Interval history: The patient was intubated last evening, and had several episodes of hypotension requiring pressors temporarily. An NG-tube was placed, with dark bloody drainage. He was found to have a hemoglobin of 6, and was transfused of to hemoglobin of 8. He is now off pressors, and the NGT output has slowed down. He is pending TB evaluation. Exam Vital Signs (past 8 hours): - 04/12/20 00:00 04/12/20 00:15 04/12/20 00:28 Temperature 98.8 F Pulse Rate 100 H 100 H 97 H Respiratory Rate 22 22 22 Blood Pressure 95/52 L 90/52 L 90/52 L Pulse Oximetry 100 100 04/12/20 00:30 04/12/20 00:35 04/12/20 00:50 Temperature 98.8 F 98.8 F 99.5 F Pulse Rate 100 H 97 H 97 H Respiratory Rate 22 22 22 Blood Pressure 93/51 L 93/51 L 87/54 L Pulse Oximetry 100 04/12/20 01:30 04/12/20 01:44 04/12/20 02:15 Temperature 100.7 F H Pulse Rate 98 H 93 H 94 H Respiratory Rate 22 22 22 Blood Pressure 89/55 L 89/55 L 113/55 L Pulse Oximetry 100 04/12/20 02:30 04/12/20 04:00 04/12/20 05:02 Temperature 99.3 F 98.6 F Pulse Rate 95 H 97 H 98 H Respiratory Rate 22 22 22 Blood Pressure 113/50 L 105/55 L 101/57 L Pulse Oximetry 100 100 100 04/12/20 05:07 04/12/20 05:45 Temperature Pulse Rate 97 H 96 H Respiratory Rate 22 22 Blood Pressure 91/52 L 97/59 L Pulse Oximetry 100 100 Oxygen Delivery Method Mechanical Ventilation Oxygen Flow Rate 3 Narrative Exam Narrative: PE: GENERAL: Intubated, sedated HENT: Normocephalic, atraumatic. NGT in place with dark bloody/bilious output EYES: Conjunctiva pink, sclera white, no periorbital swelling. CARDIOVASCULAR: Regular rate. No pedal edema. Normotensive on no pressors. RESPIRATORY: On vent; see report for settings; satting well GASTROINTESTINAL: Nondistended MUSCULOSKELETAL: Right hemiparesis; right arm splint SKIN: Appropriate color for ethnicity. No other lesions, rashes, or wounds. Objective Imaging CT scan - abdomen: My impression: Thickened esophagus with debris and fluid in it. NGT in appropriate position in stomach. Agree with Radiologist read. Radiologist's impression: [address] [address] [address] Scan Report Signed Patient: Eduardo King Jr HMR#: [id number] : 3Acct:[id number] Age/Sex: 65 / MDate of Service: 04/11/20 Loc: [facility]166-0 Accession Number: [id number] Procedure: CT chest abd pel w con Ordering Provider: Enrrique Johnson PROCEDURE: CT CHEST ABD PEL W CON INDICATIONS: sepsis, respiratory failure, internal bleeding TECHNIQUE: After the administration of intravenous contrast, 5 mm thick sections acquired from the lung apices to the symphysis. 5 mm coronal and sagittal reformats were performed, with additional 7 mm MIP reformats through the lungs. For radiation dose reduction, the following was used: automated exposure control, adjustment of mA and/or kV according to patient size. COMPARISON: [facility], US, US ABDOMEN COMPLETE, 03/26/2019, 3:00. [facility], CR, XR CHEST 1V, 04/11/2020, 18:15. [facility], CT, CT CHEST ABDOMEN PELVIS WITH CONTRAST, 11/28/2018, 12:02. [facility], CT, CT ANGIO CHEST PE PROTOCOL, 04/10/2020, 20:24. FINDINGS: Image quality: Excellent. CHEST: Lungs and pleura: Mild airspace opacity at the right lung base, new compared to 04/10/2020. Severe emphysematous change. Left upper lobe pulmonary nodule with peripheral lucency measuring 2.3 x 2.3 cm, (2). Trace right pleural effusion. No pneumothorax. Central and peripheral airways appear patent and normal in caliber. Endotracheal tube in the mid trachea. Mediastinum: Heart size is normal. Coronary artery calcifications. No pericardial effusion. No mediastinal or hilar adenopathy by size criteria. Thoracic aorta and central pulmonary arteries are normal in size. Debris in the esophagus with fluid at the upper esophagus. No hiatal hernia. An enteric tube coursing into the gastric fundus. Chest wall: No axillary or supraclavicular adenopathy by size criteria. Thyroid gland is unremarkable. External pacing pads. Right sided PICC line with the catheter tip at the middle 3rd of the SVC. ABDOMEN: Solid organs: Liver is normal in size and enhancement. Gallbladder is distended. Small layering gallstones. CBD measures 7 mm. No intrahepatic or ductal dilatation. Pancreas enhances normally. Spleen is normal in size and enhancement. No adrenal nodules. Kidneys demonstrate normal size and enhancement, without hydronephrosis. Small renal cortical hypodensities which are too small to further characterize. Peritoneum and bowel: Bowel loops demonstrate normal wall thickness and calibe r. No free fluid or air. A few scattered colonic diverticuli. Increased stool in the rectum. Nodes and vessels: No retroperitoneal or mesenteric adenopathy by size criteria. Aorta and inferior vena cava are normal in size. Miscellaneous: No ventral hernias. PELVIS: Genitourinary: Bladder is decompressed with Ann catheter. Prostatomegaly. Miscellaneous: Small left inguinal hernia containing a portion of bowel, (2/117). No adenopathy. Bones: No suspicious bony lesions. No vertebral body compression fractures. IMPRESSION: 1. New airspace opacity at the right lung base. This could represent atelectasis or aspiration. Trace right pleural effusion. 2. Debris and fluid in the esophagus. Enteric tube in the gastric fundus. Endotracheal tube in the expected position. Esophageal wall appears somewhat thickened. 3. Gallbladder distention. Layering gallstones. CBD is mildly distended. 4. Increased stool in the colon. No free fluid. This report is concordant with the overnight preliminary interpretation. Dictated by: Elkin Castellon M.D. on 04/12/2020 at 8:05 Approved by: Elkin Castellon M.D. on 04/12/2020 at 8:21 Labs Result Diagrams: 04/12/20 04:15 04/12/20 04:15 Labs: Laboratory Results - last 24 hr 04/11/20 04/11/20 04/11/20 11:39 11:39 11:39 WBC 25.0 H RBC 2.89 L Hgb 8.2 L Hct 25.4 L MCV 87.9 MCH 28.5 MCHC 32.4 RDW 14.6 Plt Count 283 Neut % (Auto) 91.0 H Lymph % (Auto) 4.4 L [place] % (Auto) 4.4 Eos % (Auto) 0.0 L Baso % (Auto) 0.2 Neut # (Auto) 63120 H Lymph # (Auto) 1100 [place] # (Auto) 1100 H Eos # (Auto) 0 Baso # (Auto) 0 ABG pH ABG pCO2 ABG pO2 ABG HCO3 ABG Total CO2 ABG O2 Saturation ABG Base Excess FiO2 Sodium Cancelled Potassium Cancelled Chloride Cancelled Carbon Dioxide Cancelled BUN Cancelled Creatinine Cancelled Estimated GFR Cancelled BUN/Creatinine Ratio Cancelled Glucose Cancelled Lactate Calcium Cancelled Total Creatine Kinase 825 H D Cancelled CK-MB (CK-2) 7.70 H D CK-MB (CK-2) Rel Index 0.9 L Troponin I 0.041 H Procalcitonin Nasal Screen MRSA (PCR) Blood Type Antibody Screen Crossmatch 04/11/20 04/11/20 04/11/20 11:39 12:47 12:47 WBC RBC Hgb Hct MCV MCH MCHC RDW Plt Count Neut % (Auto) Lymph % (Auto) [place] % (Auto) Eos % (Auto) Baso % (Auto) Neut # (Auto) Lymph # (Auto) [place] # (Auto) Eos # (Auto) Baso # (Auto) ABG pH ABG pCO2 ABG pO2 ABG HCO3 ABG Total CO2 ABG O2 Saturation ABG Base Excess FiO2 Sodium 132 L Potassium 4.5 Chloride 94 L Carbon Dioxide 30 BUN 45 H Creatinine 0.83 Estimated GFR > 60.0 BUN/Creatinine Ratio 54.2 H Glucose 117 H Lactate 1.5 Calcium 9.2 Total Creatine Kinase 963 H CK-MB (CK-2) CK-MB (CK-2) Rel Index Troponin I Procalcitonin 3.18 H Nasal Screen MRSA (PCR) Blood Type Antibody Screen Crossmatch 04/11/20 04/11/20 04/11/20 17:48 17:48 17:48 WBC 18.9 H RBC 2.07 L Hgb 6.1 L* Hct 18.3 L* MCV 88.2 MCH 29.5 MCHC 33.5 RDW 14.4 Plt Count 223 Neut % (Auto) 88.5 H Lymph % (Auto) 5.8 L [place] % (Auto) 5.5 Eos % (Auto) 0.0 L Baso % (Auto) 0.2 Neut # (Auto) 20716 H Lymph # (Auto) 1100 [place] # (Auto) 1000 H Eos # (Auto) 0 Baso # (Auto) 0 ABG pH ABG pCO2 ABG pO2 ABG HCO3 ABG Total CO2 ABG O2 Saturation ABG Base Excess FiO2 Sodium 133 L Potassium 4.4 Chloride 101 Carbon Dioxide 26 BUN 49 H Creatinine 0.99 Estimated GFR > 60.0 BUN/Creatinine Ratio 49.5 H Glucose 129 H Lactate Calcium 7.9 L Total Creatine Kinase CK-MB (CK-2) CK-MB (CK-2) Rel Index Troponin I Procalcitonin Nasal Screen MRSA (PCR) Blood Type O Positive Antibody Screen Negative Crossmatch See Detail 04/11/20 04/11/20 04/11/20 17:48 18:51 22:13 WBC RBC Hgb 7.6 L Hct 22.6 L MCV MCH MCHC RDW Plt Count Neut % (Auto) Lymph % (Auto) [place] % (Auto) Eos % (Auto) Baso % (Auto) Neut # (Auto) Lymph # (Auto) [place] # (Auto) Eos # (Auto) Baso # (Auto) ABG pH 7.30 L ABG pCO2 56.9 H ABG pO2 505 H* ABG HCO3 28 H ABG Total CO2 30 ABG O2 Saturation 100 ABG Base Excess 2.0 FiO2 100 Sodium Potassium Chloride Carbon Dioxide BUN Creatinine Estimated GFR BUN/Creatinine Ratio Glucose Lactate Calcium Total Creatine Kinase CK-MB (CK-2) CK-MB (CK-2) Rel Index Troponin I 0.044 H Procalcitonin Nasal Screen MRSA (PCR) Blood Type Antibody Screen Crossmatch 04/11/20 04/11/20 04/12/20 23:14 23:15 04:15 WBC RBC Hgb Hct MCV MCH MCHC RDW Plt Count Neut % (Auto) Lymph % (Auto) [place] % (Auto) Eos % (Auto) Baso % (Auto) Neut # (Auto) Lymph # (Auto) [place] # (Auto) Eos # (Auto) Baso # (Auto) ABG pH 7.38 ABG pCO2 40.7 ABG pO2 82 ABG HCO3 24 ABG Total CO2 25 ABG O2 Saturation 96 ABG Base Excess -1.0 FiO2 30 Sodium Potassium Chloride Carbon Dioxide BUN Creatinine Estimated GFR BUN/Creatinine Ratio Glucose Lactate Calcium Total Creatine Kinase 681 H CK-MB (CK-2) CK-MB (CK-2) Rel Index Troponin I Procalcitonin Nasal Screen MRSA (PCR) Positive for mrsa H Blood Type Antibody Screen Crossmatch 04/12/20 04/12/20 04/12/20 04:15 04:15 04:15 WBC 17.4 H RBC 2.79 L Hgb 8.1 L Hct 23.8 L MCV 85.4 MCH 29.2 MCHC 34.2 RDW 15.7 H Plt Count 173 Neut % (Auto) 85.3 H Lymph % (Auto) 6.1 L [place] % (Auto) 8.3 Eos % (Auto) 0.0 L Baso % (Auto) 0.3 Neut # (Auto) 32808 H Lymph # (Auto) 1100 [place] # (Auto) 1400 H Eos # (Auto) 0 Baso # (Auto) 100 ABG pH ABG pCO2 ABG pO2 ABG HCO3 ABG Total CO2 ABG O2 Saturation ABG Base Excess FiO2 Sodium 134 L Potassium 3.6 Chloride 104 Carbon Dioxide 28 BUN 31 H Creatinine 0.81 Estimated GFR > 60.0 BUN/Creatinine Ratio 38.3 H Glucose 84 Lactate Calcium 7.4 L Total Creatine Kinase CK-MB (CK-2) CK-MB (CK-2) Rel Index Troponin I Procalcitonin 3.87 H Nasal Screen MRSA (PCR) Blood Type Antibody Screen Crossmatch Assessment & Plan Assessment & Plan narrative: 65 yo man with complex medical history, here with anemia and leukocytosis of uknown etiology. His condition has deteriorated since admission, requiring blood transfusion and pressors. NGT output is indicative of an upper GI source. Based on his CT scan it is likely an infectious or neoplastic etiology in the esophagus. He is currently being ruled out for TB. Recommendations: Transfuse as needed PPI 40mg IV bid or PPI gtt Octreotide gtt Serial hgb Agree with broad spectrum antibiotics and empiric anti fungal therapy empirically for esophagitis/candidiasis I tentatively put him on the OR schedule for EGD on Monday afternoon. If his TB status is known by then we can go ahead with EGD at that time. Will need POA consent or two doctor emergency consent. Quality VTE Deep Vein Thrombosis/Pulmonary Embolism Present on Admission: No
--- NOTE | 2020-04-12 07:58 | PC.NURSE ---
note related to TAR : THIS RN NOTED BLOOD TRANSFUSION MARKED CONTINUED TO TRANSFUSE- IT HAD BEEN COMPLETED PRIOR TO THIS SHIFT. MARKED COMPLETED BUT UNCLEAR OF TIME AND/OR ENDING VS
--- NOTE | 2020-04-12 09:07 | CM.DPC ---
DCP continued: EMR reviewed: CM/RN called [facility] [phone] and spoke with Nurse Song about patients next of kin/ Emergency contact. CM/RN was told patients next of kin is Alex Hess [phone] but he is also currently in the hospital and unreachable at this time. According to [facility] records patient has no other contacts listed. No family or friends. To help with medical decisions. Dayanara Nichols RN
[2020-04-12] MEDS: ALBUTEROL HFA 60 PUFF/8 GM INH 8 PUFF INH ×4 (09:32→19:45)
--- NOTE | 2020-04-12 09:41 | P.PN_ITS ---
Subjective Subjective Date Patient Seen: 04/12/20 Time Patient Seen: 09:42 Interval history: He is seen today in the ICU to follow up his Esophageal abnormality, UGI bleed, Anemia, compromised airway and Hypotension. Overnight he has stabilized, with a CT scan that showed no acute abdominal process. With the initiation of octreotide his GI bleeding has slowed. He has received 3 units of packed red blood cells with a hemoglobin this morning of 8.1. His white blood count has dropped to 17.4. His CK has dropped to 681. His procalcitonin is 3.87. His nasal swab is positive for MRSA. The vent settings are 30% FiO2 with tidal volume of 400 and a PEEP of 8. He is on drips of Versed, fentanyl and off the pressors now. IV fluid is flowing at 100 mL/hr. His latest ABG is a pH of 7.38 with a pCO2 of 40 and a PO2 of 82. Exam Vital Signs (past 8 hours): - 04/12/20 01:44 04/12/20 02:15 04/12/20 02:30 Temperature 100.7 F H 99.3 F Pulse Rate 93 H 94 H 95 H Respiratory Rate 22 22 22 Blood Pressure 89/55 L 113/55 L 113/50 L Pulse Oximetry 100 04/12/20 04:00 04/12/20 05:02 04/12/20 05:07 Temperature 98.6 F Pulse Rate 97 H 98 H 97 H Respiratory Rate 22 22 22 Blood Pressure 105/55 L 101/57 L 91/52 L Pulse Oximetry 100 100 100 04/12/20 05:45 04/12/20 07:40 Temperature 99.1 F Pulse Rate 96 H 84 Respiratory Rate 22 22 Blood Pressure 97/59 L 98/54 L Pulse Oximetry 100 100 Fraction of Inspired Oxygen 30 Oxygen Delivery Method Mechanical Ventilation Oxygen Flow Rate 3 Narrative Exam Narrative: He is sedated on a Versed drip in the intensive care unit room. Heart is regular rate and rhythm without murmur Lungs are clear to auscultation bilaterally Extremities have no ankle edema ET tube is present along with NG tube and IVs in both arms including a PICC line on the right side. A Ann catheter is also inserted. Objective Labs Result Diagrams: 04/12/20 04:15 04/12/20 04:15 Labs: Laboratory Results - last 24 hr 04/11/20 04/11/20 04/11/20 11:39 11:39 11:39 WBC 25.0 H RBC 2.89 L Hgb 8.2 L Hct 25.4 L MCV 87.9 MCH 28.5 MCHC 32.4 RDW 14.6 Plt Count 283 Neut % (Auto) 91.0 H Lymph % (Auto) 4.4 L [place] % (Auto) 4.4 Eos % (Auto) 0.0 L Baso % (Auto) 0.2 Neut # (Auto) 99924 H Lymph # (Auto) 1100 [place] # (Auto) 1100 H Eos # (Auto) 0 Baso # (Auto) 0 ABG pH ABG pCO2 ABG pO2 ABG HCO3 ABG Total CO2 ABG O2 Saturation ABG Base Excess FiO2 Sodium Cancelled Potassium Cancelled Chloride Cancelled Carbon Dioxide Cancelled BUN Cancelled Creatinine Cancelled Estimated GFR Cancelled BUN/Creatinine Ratio Cancelled Glucose Cancelled Lactate Calcium Cancelled Total Creatine Kinase 825 H D Cancelled CK-MB (CK-2) 7.70 H D CK-MB (CK-2) Rel Index 0.9 L Troponin I 0.041 H Procalcitonin Nasal Screen MRSA (PCR) Blood Type Antibody Screen Crossmatch 04/11/20 04/11/20 04/11/20 11:39 12:47 12:47 WBC RBC Hgb Hct MCV MCH MCHC RDW Plt Count Neut % (Auto) Lymph % (Auto) [place] % (Auto) Eos % (Auto) Baso % (Auto) Neut # (Auto) Lymph # (Auto) [place] # (Auto) Eos # (Auto) Baso # (Auto) ABG pH ABG pCO2 ABG pO2 ABG HCO3 ABG Total CO2 ABG O2 Saturation ABG Base Excess FiO2 Sodium 132 L Potassium 4.5 Chloride 94 L Carbon Dioxide 30 BUN 45 H Creatinine 0.83 Estimated GFR > 60.0 BUN/Creatinine Ratio 54.2 H Glucose 117 H Lactate 1.5 Calcium 9.2 Total Creatine Kinase 963 H CK-MB (CK-2) CK-MB (CK-2) Rel Index Troponin I Procalcitonin 3.18 H Nasal Screen MRSA (PCR) Blood Type Antibody Screen Crossmatch 04/11/20 04/11/20 04/11/20 17:48 17:48 17:48 WBC 18.9 H RBC 2.07 L Hgb 6.1 L* Hct 18.3 L* MCV 88.2 MCH 29.5 MCHC 33.5 RDW 14.4 Plt Count 223 Neut % (Auto) 88.5 H Lymph % (Auto) 5.8 L [place] % (Auto) 5.5 Eos % (Auto) 0.0 L Baso % (Auto) 0.2 Neut # (Auto) 05689 H Lymph # (Auto) 1100 [place] # (Auto) 1000 H Eos # (Auto) 0 Baso # (Auto) 0 ABG pH ABG pCO2 ABG pO2 ABG HCO3 ABG Total CO2 ABG O2 Saturation ABG Base Excess FiO2 Sodium 133 L Potassium 4.4 Chloride 101 Carbon Dioxide 26 BUN 49 H Creatinine 0.99 Estimated GFR > 60.0 BUN/Creatinine Ratio 49.5 H Glucose 129 H Lactate Calcium 7.9 L Total Creatine Kinase CK-MB (CK-2) CK-MB (CK-2) Rel Index Troponin I Procalcitonin Nasal Screen MRSA (PCR) Blood Type O Positive Antibody Screen Negative Crossmatch See Detail 04/11/20 04/11/20 04/11/20 17:48 18:51 22:13 WBC RBC Hgb 7.6 L Hct 22.6 L MCV MCH MCHC RDW Plt Count Neut % (Auto) Lymph % (Auto) [place] % (Auto) Eos % (Auto) Baso % (Auto) Neut # (Auto) Lymph # (Auto) [place] # (Auto) Eos # (Auto) Baso # (Auto) ABG pH 7.30 L ABG pCO2 56.9 H ABG pO2 505 H* ABG HCO3 28 H ABG Total CO2 30 ABG O2 Saturation 100 ABG Base Excess 2.0 FiO2 100 Sodium Potassium Chloride Carbon Dioxide BUN Creatinine Estimated GFR BUN/Creatinine Ratio Glucose Lactate Calcium Total Creatine Kinase CK-MB (CK-2) CK-MB (CK-2) Rel Index Troponin I 0.044 H Procalcitonin Nasal Screen MRSA (PCR) Blood Type Antibody Screen Crossmatch 04/11/20 04/11/20 04/12/20 23:14 23:15 04:15 WBC RBC Hgb Hct MCV MCH MCHC RDW Plt Count Neut % (Auto) Lymph % (Auto) [place] % (Auto) Eos % (Auto) Baso % (Auto) Neut # (Auto) Lymph # (Auto) [place] # (Auto) Eos # (Auto) Baso # (Auto) ABG pH 7.38 ABG pCO2 40.7 ABG pO2 82 ABG HCO3 24 ABG Total CO2 25 ABG O2 Saturation 96 ABG Base Excess -1.0 FiO2 30 Sodium Potassium Chloride Carbon Dioxide BUN Creatinine Estimated GFR BUN/Creatinine Ratio Glucose Lactate Calcium Total Creatine Kinase 681 H CK-MB (CK-2) CK-MB (CK-2) Rel Index Troponin I Procalcitonin Nasal Screen MRSA (PCR) Positive for mrsa H Blood Type Antibody Screen Crossmatch 04/12/20 04/12/20 04/12/20 04:15 04:15 04:15 WBC 17.4 H RBC 2.79 L Hgb 8.1 L Hct 23.8 L MCV 85.4 MCH 29.2 MCHC 34.2 RDW 15.7 H Plt Count 173 Neut % (Auto) 85.3 H Lymph % (Auto) 6.1 L [place] % (Auto) 8.3 Eos % (Auto) 0.0 L Baso % (Auto) 0.3 Neut # (Auto) 31355 H Lymph # (Auto) 1100 [place] # (Auto) 1400 H Eos # (Auto) 0 Baso # (Auto) 100 ABG pH ABG pCO2 ABG pO2 ABG HCO3 ABG Total CO2 ABG O2 Saturation ABG Base Excess FiO2 Sodium 134 L Potassium 3.6 Chloride 104 Carbon Dioxide 28 BUN 31 H Creatinine 0.81 Estimated GFR > 60.0 BUN/Creatinine Ratio 38.3 H Glucose 84 Lactate Calcium 7.4 L Total Creatine Kinase CK-MB (CK-2) CK-MB (CK-2) Rel Index Troponin I Procalcitonin 3.87 H Nasal Screen MRSA (PCR) Blood Type Antibody Screen Crossmatch Assessment & Plan Assessment & Plan narrative: This is a 65-year-old male who presented with a 2 day history of worsening shortness of breath along with blood tinged sputum, associated fevers and chills and increasing oxygen requirement in the setting of COPD. 1. Acute respiratory failure with hypoxemia,, present on admission, active -patient with a history of emphysema and is on home O2 at 2-4 liters/minute. Complaints of increasing shortness of breath for 2 days developing blood tinged cough. -patient presented with increasing hypoxemia progressive for 2 days requiring increase in oxygen level to 3.5, upon arrival respiratory rate is 30 heart rate is 116. -initial arterial blood gas reveals a pH of 7.49, pCO2 of 33.3, PO2 62, bicarb 33 with a base excess +9 on 32% FiO2. -multiple etiologies for hypoxemia including: COPD exacerbation-PF ratio 193.75, a gradient 109.8 with expected 86. Past history of smoking greater than 40 pack years. Pulmonary embolism-elevated D-dimer at 1609, CTA finds no central filling deficits and is negative for pulmonary embolism. Pneumonia- aspiration pneumonia with debris remaining in the esophagus on CT scan with history of CVA and dysphagia. Pneumonia-bacterial versus viral versus COVID-19, patient with elevated white count at 22 with increased neutrophils of 91.7%, increased procalcitonin an elevated CRP at 1.2 and patient initially afebrile upon arrival however temperature increased to 100.3 on admission to the floor. -Covid negative on admission -04/12 the patient underwent intubation and resuscitation last evening and is now stabilized in the ICU on the ventilator. He will be kept intubated until an EGD can be done to establish because of his esophageal abnormality, hematemesis and poor airway protection. This will necessitate waiting for the results of the QuantiFERON gold which was ordered because of the atypical lesion in the left upper lung. That is expected to return in the next 2-3 days. General surgery is following. 2. Sepsis with respiratory compromise, present on admission, active. -patient with an elevated temperature upon arrival to the floor 100.3, and an elevated white count of 22.2 with increased neutrophils of 91.7 %, CRP of 1.2, procalcitonin 0.70. No extremity swelling or findings consistent with DVT. -the patient received sepsis bolus in the ER with 2100 cc of normal saline, blood cultures are drawn and he is started on Levaquin 750 mg IV. -he continues on 04/12 to have an elevated white blood count and procalcitonin. His chest x-ray shows no definite pneumonia. A sputum culture is pending. He continues on IV Zosyn. 3. Probable pneumonia, acute, present on admission, active. -patient with cough developing blood-tinged sputum on day of admission, complaints of fevers and chills. -pneumonia not evident on any of his chest x-rays or CT scans. -initially on Levaquin and Azithromycin -04/11 started on Zosyn -04/12 now intubated until QuantiFERON gold results return and EGD is done. 4. Esophageal stricture, chronic -the patient has a prior history of esophageal stricture undergoing balloon di lation 2 years ago. Tamie Licona tear X 2 09/24 at [facility]. -on CT scan, debris is identified in the esophagus increasing the risk for aspiration. -speech therapy recommends NPO until Modified Barium Swallow can be done, subsequently intubated 04/11 -Bleeding improved with Octreotide and Protonix drips. Hgb 8.1 after 3 units prbc, follow. -GS consult with Dr. Escobar 04/11 5. 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 -the patient resides at [facility] and states that he is nonambulatory. -he has right arm splint and right lower leg AFO. -PT and OT consult to evaluate and treat. -holding while intubated home regimen of gabapentin 600 mg 3 times daily and ba clofen 20 mg 3 times daily. 6. Essential hypertension, chronic, stable. -patient with a blood pressure 152/89 upon arrival. Blood pressure improves to 126/68 upon arrival to floor. -holding while intubated home regimen of benazepril 40 mg daily and amlodipine 10 mg daily. 7. Hyperlipidemia, chronic, stable. -holding while intubated home regimen of atorvastatin 40 mg daily at bedtime. 8. Nicotine dependence, chronic, stable. -patient quit smoking in July of 2019, he has been using nicotine lozenges at [facility]. -ordered Nicoderm patch daily. 9. Leukocytosis -Suspect esophageal process versus occult pneumonia -Antibiotic coverage of Azithromycin and Zosyn -Follow daily CBC -GS consulted 10. Anemia -3 units packed red blood cells given with follow-up hemoglobin 8.1 this morning. That will be followed. He was bleeding from both the NG tube and the endotracheal tube overnight. Those have improved. -continue octreotide and IV Protonix drip. 11. Nutrition -consider TPN as we anticipate him to be intubated for 3-4 days while waiting for the TB results and the subsequent EGD. At this point with a PICC line and 1 peripheral line we do not have ready access for the additional TPN. -Consider 2nd PICC line placement tomorrow/Friday 04/13 Isolation: Not indicated with Covid/Respiratory Panel both negative VTE prophylaxis: Bilateral compression hose, Hold Enoxaparin due to hemoptysis IV fluid: Normal saline 100 cc/hour Diet: Heart healthy low-sodium dysphagia diet Code status: FULL CODE, patient's friend El Nielsen is is surrogate decision maker. No call backs from attempts to contact listed friends of Abram Gleason and Alex Shafer VTE Deep Vein Thrombosis/Pulmonary Embolism Present on Admission: No
[2020-04-12] MEDS: PANTOPRAZOLE 80 MG in SODIUM CHLORIDE 0.9% 100 ML 10 ML IV ×2 (09:50→16:29)
[2020-04-12] MEDS: LORazepam 2 MG/ML INJ IV ×2 (10:05→22:19)
[2020-04-12] MEDS: SODIUM CHLORIDE 0.9% FLUSH 10 ML IV (10:06)
--- NOTE | 2020-04-12 10:06 | OT.IPNOTE ---
Discussed with nursing. Pt is intubated at this time and not appropriate for OT eval. Will hold and follow for now.
--- NOTE | 2020-04-12 10:26 | PC.NURSE ---
Addendum entered by Nara Valles R.N. 04/12/20 13:54: NGT DRAINAGE SEEMS TO BE MORE GREEN TINGED IN TUBING, TURNED Q 2H, BARRIER CREAM APPLIED TO BOTTOM, TERRI HOSE APPLIED AND SCD'S OVER THEM WELL HEEL PROTECTORS BILATERALLY Original Note: pt suctioned freq for frothy whitish secretions from ett and orally, ngt putting out berhane bloody secretion to collection cannister, scds in place and measured for terri stockings- full bath given including oral care. restraints checked and secured and initiated turn schedule - increased versed/fentanyl gtt to obtain adequate sedation as well administered 2mg iv lorazepam- protonix gtt started per 04/11 order. vent settings remain unchanged
[2020-04-12] MEDS: SODIUM CHLORIDE 0.9% 1,000 ML 100 ML IV ×2 (10:38→23:35)
[2020-04-12] MEDS: OCTREOTIDE 500 MCG in SODIUM CHLORIDE 0.9% 100 ML 10.1 ML IV ×2 (12:05→16:29)
--- NOTE | 2020-04-12 12:08 | PT-IP ANOTE ---
Per nursing, pt will be on ventilator for a few days. Hold PT
[2020-04-12] MEDS: FLUCONAZOLE 200 MG/100 ML PIGGYBACK 100 MG IV (14:24)
[2020-04-12] MEDS: fentaNYL 1,000 MCG in DEXTROSE 5% IN WATER 230 ML 18.375 ML IV (15:22)
[2020-04-12] MEDS: MIDAZOLAM 50 MG in DEXTROSE 5% IN WATER 250 ML 30 ML IV (15:23)
--- NOTE | 2020-04-12 15:43 | PC.NURSE ---
Addendum entered by Madhavi Louise R.N. 04/13/20 01:41: 0130 Flushing of NG tube needs to be done Q2 hr per Sanjeev Johnson, NG has been clotting off, and needs to be piston style suctioned to remove clots using free water. Then NG is reconnected to LIS, will continue to monitor. Addendum entered by Madhavi Louise R.N. 04/12/20 23:44: 2300 Continuing care of pt for a 12 hour shift, pt heart rate continues to be 135, BP 102/70, RR 22 O2 97%. Pt seems to be sedated adequately, no longer wincing or moving. Bed is low and locked, will continue to monitor. Addendum entered by Madhavi Louise R.N. 04/12/20 23:39: 2200 Pt began wincing, HR 135 BP105/80 RR 40, notified provider and RT. Deep suctioning done, increased Fentanyl to 0.8mcg/kg/hr, Versed increased to 14.6 mL/hr, administered 2mg Ativan and 1mg Dilaudid per provider order. Will continue to monitor for effectiveness. Addendum entered by Madhavi Louise R.N. 04/12/20 21:35: 2135 Notified provider cardiac monitoring is showing pt is currently in trigemony, waiting for new orders, will continue to monitor. Original Note: Evening shift note: Assume care of pt from CHINEDU Bains. Assessment of pt currently on Ventilator FIO2 30%, PEEP 5, Tidal volume 450, RR 22. Versed currently infusing at 6 for RASS score of -2, REBEKAH 100/55 with MAP of 79. Fentanyl 1mL/hr. NGT patent to low intermittent suction, with berhane red blood return. VSS at this time (see documentation), Ann catheter draining clear, pale straw urine, patent, telemetry shows SA with frequent PVC. Pt appears to be resting comfortably at this time, will continue to monitor.
[2020-04-12 20:27] LABS: HCO3 ABG 25 mmol/L (22-26); Oxygen Saturation ABG 93 % (95-100); PCO2 ABG 52.5 mmHg (35-45); PO2 ABG 78 mmHg (80-100); TCO2 ABG 27 mmol/L (21-31); pH ABG 7.29 (7.35-7.45)
[2020-04-12] MEDS: HYDROMORPHONE 1 MG INJ (23:00)
[2020-04-13] VITALS (24 sets, daily range): BP systolic 84–125; BP diastolic 50–64; PULSE 67–133; RESP 12–32; TEMP 36.7–37.9; O2SAT 94–100
[2020-04-13] MEDS: MIDAZOLAM 50 MG in DEXTROSE 5% IN WATER 250 ML 30 ML IV ×2 (00:49→08:56)
[2020-04-13] MEDS: PANTOPRAZOLE 80 MG in SODIUM CHLORIDE 0.9% 100 ML 10 ML IV ×3 (00:51→15:57)
[2020-04-13] MEDS: ALBUTEROL HFA 60 PUFF/8 GM INH 8 PUFF INH ×6 (03:36→23:45)
[2020-04-13] MEDS: LORazepam 2 MG/ML INJ IV ×3 (04:22→19:26)
[2020-04-13] MEDS: PIPERACILLIN-TAZO 3.375 GM/50 ML FROZ.PIGGY IV ×4 (04:22→23:27)
[2020-04-13] MEDS: fentaNYL 1,000 MCG in DEXTROSE 5% IN WATER 230 ML 14.7 ML IV (04:23)
[2020-04-13 04:46] LABS: Add Manual Diff / Slide Review NO; Basophils Absolute Auto 0 /uL (0-100); Basophils Percent Auto 0.3 % (0-2); Eosinophils Absolute Auto 200 /uL (0-450); Eosinophils Percent Auto 1.3 % (2-4); Hematocrit 22.3 % (41-53); Hemoglobin 7.4 g/dL (13.5-17.5); Lymphocytes Absolute Auto 1000 /uL (1100-4500); Lymphocytes Percent Auto 6.6 % (25-40); Mean Corpuscular HGB Conc 33.3 % (30-36); Mean Corpuscular Volume 86.9 fL (80-100); Monocytes Absolute Auto 1200 /uL (0-900); Monocytes Percent Auto 7.7 % (3-14); Neutrophils Absolute Auto 12700 /uL (1500-7000); Neutrophils Percent Auto 84.1 % (50-75); Platelet Count 183 X10^3/uL (150-400); Red Blood Cell Count 2.57 X10^6/uL (4.5-5.9); Red Cell Distribution Width 15.9 % (11.6-14.8); White Blood Cell Count 15.1 X10^3/uL (4.5-11.0)
[2020-04-13 04:57] LABS: Creatine Kinase 624 U/L (55-170)
[2020-04-13 04:59] LABS: Alanine Aminotransferase 15 IU/L (<50); Albumin 2.4 g/dL (3.5-5.0); Albumin Globulin Ratio 0.9 (1.0-2.8); Alkaline Phosphatase 47 U/L (38-126); Aspartate Aminotransferase 35 IU/L (17-59); BUN Creatinine Ratio 18.3 (6-22); Bilirubin Total 0.7 mg/dL (0.2-1.3); Blood Urea Nitrogen 15 mg/dL (9-20); Calcium 7.5 mg/dL (8.4-10.2); Carbon Dioxide 27 mmol/L (22-32); Chloride 106 mmol/L (98-107); Estimated Glomerular Filt Rate > 60.0 mL/min (>60); Globulin 2.8 g/dL (1.7-4.1); Glucose 109 mg/dL (80-110); HEMOLYSIS < 15 (0-50); Magnesium 1.7 mg/dL (1.6-2.3); Potassium 3.7 mmol/L (3.4-5.1); Sodium 137 mmol/L (137-145); Total Protein 5.2 g/dL (6.3-8.2)
[2020-04-13 05:15] LABS: Procalcitonin 1.47 ng/mL (<0.5)
[2020-04-13] MEDS: SODIUM CHLORIDE 0.9% 1,000 ML 100 ML IV ×2 (06:00→16:26)
--- NOTE | 2020-04-13 06:46 | DI.RAD.S_ITS ---
PROCEDURE: XR CHEST 1V INDICATIONS: ET tube TECHNIQUE: One view of the chest was acquired. COMPARISON: [facility], CR, XR CHEST 1V, 04/11/2020, 18:15. FINDINGS: Surgical changes and devices: ET tube projects 6.4 cm superior to the jorge luis. NG tube projects across the GE junction with tip and side-port in the proximal stomach. Lungs and pleura: Lungs are clear. No pleural effusions or pneumothorax. Mediastinum: Mediastinal contours appear normal. Heart size is normal. Bones and chest wall: No suspicious bony lesions. Overlying soft tissues appear unremarkable. IMPRESSION: ET tube 6.4 cm superior to the jorge luis. Dictated by: Amarilis Koroma MD, PhD on 04/13/2020 at 8:08 Approved by: Amarilis Koroma MD, PhD on 04/13/2020 at 8:09
[2020-04-13] MEDS: OCTREOTIDE 500 MCG in SODIUM CHLORIDE 0.9% 100 ML 10.1 ML IV ×2 (08:00→17:44)
--- NOTE | 2020-04-13 08:42 | PT-IP ANOTE ---
Discussed pt with CM and team who requested PT discharge orders at this time as pt in not appropriate for PT at this time. Will discharge order today and wait for new orders.
--- NOTE | 2020-04-13 09:09 | OT.IPNOTE ---
Per P.T., pt is currently not appropriate for therapy services. Will discharge order and await new orders if appropriate.
[2020-04-13] MEDS: SODIUM CHLORIDE 0.9% FLUSH 10 ML IV (09:20)
--- NOTE | 2020-04-13 09:24 | SLP.IPNOTE ---
Pt NPO on ventilator with ET and NG tubes. Will hold therapy until pt is appropriate.
[2020-04-13 09:33] LABS: HCO3 ABG 25 mmol/L (22-26); PCO2 ABG 50.7 mmHg (35-45); PO2 ABG 62 mmHg (80-100)
[2020-04-13 09:34] LABS: Fractionated Inspired Oxygen 30; Oxygen Saturation ABG 88 % (95-100); TCO2 ABG 27 mmol/L (21-31)
--- NOTE | 2020-04-13 09:36 | PC.NURSE ---
am abg slightly acidotic- tidal volume fincreased ( returned ) to 450ml per RT/MD-
--- NOTE | 2020-04-13 09:54 | P.PN_ITS ---
Subjective Subjective Date Patient Seen: 04/13/20 Time Patient Seen: 09:54 Interval history: No acute overnight events. He remains intubated for respiratory failure. Off all pressors. No blood transfusions in the past 24 hours. Exam Vital Signs (past 8 hours): - 04/13/20 02:00 04/13/20 03:00 04/13/20 04:00 Temperature Pulse Rate 92 H 91 H 86 Respiratory Rate 22 22 22 Blood Pressure 94/55 L 99/55 L 95/56 L Pulse Oximetry 100 100 100 04/13/20 05:00 04/13/20 06:00 04/13/20 08:00 Temperature 99.3 F 100.0 F H Pulse Rate 87 109 H 83 Respiratory Rate 22 32 H 22 Blood Pressure 99/55 L 120/61 97/55 L Pulse Oximetry 100 94 100 Fraction of Inspired Oxygen 30 Oxygen Delivery Method Mechanical Ventilation Oxygen Flow Rate 3 Narrative Exam Narrative: General elderly man sedated and intubated Cardiovascular-normotensive off pressors Objective Labs Result Diagrams: 04/13/20 04:30 04/13/20 04:30 Labs: Laboratory Results - last 24 hr 04/12/20 04/13/20 04/13/20 20:08 04:30 04:30 WBC 15.1 H RBC 2.57 L Hgb 7.4 L Hct 22.3 L MCV 86.9 MCH 29.0 MCHC 33.3 RDW 15.9 H Plt Count 183 Neut % (Auto) 84.1 H Lymph % (Auto) 6.6 L [place] % (Auto) 7.7 Eos % (Auto) 1.3 L Baso % (Auto) 0.3 Neut # (Auto) 61600 H Lymph # (Auto) 1000 L [place] # (Auto) 1200 H Eos # (Auto) 200 Baso # (Auto) 0 ABG pH 7.29 L* ABG pCO2 52.5 H ABG pO2 78 L ABG HCO3 25 ABG Total CO2 27 ABG O2 Saturation 93 L ABG Base Excess -1.0 FiO2 0.30 Sodium 137 Potassium 3.7 Chloride 106 Carbon Dioxide 27 BUN 15 Creatinine 0.82 Estimated GFR > 60.0 BUN/Creatinine Ratio 18.3 Glucose 109 Calcium 7.5 L Magnesium 1.7 Total Bilirubin 0.7 AST 35 ALT 15 Alkaline Phosphatase 47 D Total Creatine Kinase Total Protein 5.2 L Albumin 2.4 L Globulin 2.8 Albumin/Globulin Ratio 0.9 L Procalcitonin 04/13/20 04/13/20 04/13/20 04:30 04:30 08:09 WBC RBC Hgb Hct MCV MCH MCHC RDW Plt Count Neut % (Auto) Lymph % (Auto) [place] % (Auto) Eos % (Auto) Baso % (Auto) Neut # (Auto) Lymph # (Auto) [place] # (Auto) Eos # (Auto) Baso # (Auto) ABG pH 7.30 L ABG pCO2 50.7 H ABG pO2 62 L ABG HCO3 25 ABG Total CO2 27 ABG O2 Saturation 88 L ABG Base Excess -1.0 FiO2 30 Sodium Potassium Chloride Carbon Dioxide BUN Creatinine Estimated GFR BUN/Creatinine Ratio Glucose Calcium Magnesium Total Bilirubin AST ALT Alkaline Phosphatase Total Creatine Kinase 624 H Total Protein Albumin Globulin Albumin/Globulin Ratio Procalcitonin 1.47 H Assessment & Plan Assessment & Plan narrative: 65-year-old male with acute respiratory failure and sepsis. He has an upper GI bleed which has required transfusion but none in the last 24 hours. Hematocrit is 22 this morning from 24 yesterday. He is off all pressors and hemodynamically stable -continue octreotide drip -continue NG tube with lavage -transfuse as necessary -will plan for a esophagoduodenoscopy once TB testing is complete and negative Quality VTE Deep Vein Thrombosis/Pulmonary Embolism Present on Admission: No
--- NOTE | 2020-04-13 10:01 | RT ---
ABG drawn at 0810, results go Dr Lucas. Plan: increase VT to 450, verbal order. Inline suction catheter changed for sterile sputum sample collection, which was sent to the lab by the carol Bains.
[2020-04-13] MEDS: FLUCONAZOLE 200 MG/100 ML PIGGYBACK 100 MG IV (14:22)
[2020-04-13] MEDS: MIDAZOLAM 50 MG in DEXTROSE 5% IN WATER 250 ML 40 ML IV ×2 (14:56→21:01)
[2020-04-13] MEDS: fentaNYL 1,000 MCG in DEXTROSE 5% IN WATER 230 ML 18.375 ML IV (18:13)
--- NOTE | 2020-04-13 18:29 | P.PN_ITS ---
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 His hemoglobin did drop slightly today to 7.4, with repeat pending this evening. He has been hemodynamically stable today on sedation and is no longer requiring pressors. He has not required a transfusion today, although it may be necessary pending repeat H&H this afternoon. His tidal volume was increased slightly given his blood gas this morning showing slight respiratory acidosis, however is pressures could not tolerate the increased volume and was again decreased later in the day. His leukocytosis is improved to 15 today and his procalcitonin is down to 1.47. Patient will remain intubated until EGD, which will take place after TB testing has resulted. Exam Vital Signs (past 8 hours): - 04/13/20 10:51 04/13/20 12:18 04/13/20 14:02 Temperature 100.2 F H Pulse Rate 77 80 69 Respiratory Rate 22 12 22 Blood Pressure 97/53 L Pulse Oximetry 98 04/13/20 16:12 Temperature 99.5 F Pulse Rate 74 Respiratory Rate 20 Blood Pressure 111/59 L Pulse Oximetry Fraction of Inspired Oxygen 30 Oxygen Delivery Method Mechanical Ventilation Oxygen Flow Rate 0 Narrative Exam Narrative: GENERAL APPEARANCE: Well developed, well nourished male, intubated and sedated on Versed. Lines currently in place without any erythema or induration. SKIN: Inspection of the skin reveals no rashes, ulcerations or petechiae. HEENT: Normocephalic atraumatic, extraocular muscles are intact, oropharynx is clear and mucous membranes are moist, neck is supple without adenopathy NECK: Supple and symmetric. There was no thyroid enlargement, and no tenderness, or masses were felt. CHEST: Normal AP diameter and normal contour without any kyphoscoliosis. LUNGS: Auscultation of the lungs revealed slight rhonchi in the left middle lobe, otherwise mechanical breath sounds. CARDIOVASCULAR: There was a regular rate and rhythm without any murmurs, gallops, rubs. Peripheral pulses were 2+ and symmetric. ABDOMEN: Soft and nontender with normal bowel sounds. No ascites was noted. MUSCULOSKELETAL: There was no tenderness or effusions noted. Muscle strength and tone were normal. EXTREMITIES: No cyanosis, clubbing or edema. NEUROLOGIC: Sedated on Versed, not following commands, no eye opening. Objective Labs Result Diagrams: 04/13/20 04:30 04/13/20 04:30 Labs: Laboratory Results - last 24 hr 04/12/20 04/13/20 04/13/20 20:08 04:30 04:30 WBC 15.1 H RBC 2.57 L Hgb 7.4 L Hct 22.3 L MCV 86.9 MCH 29.0 MCHC 33.3 RDW 15.9 H Plt Count 183 Neut % (Auto) 84.1 H Lymph % (Auto) 6.6 L Durham % (Auto) 7.7 Eos % (Auto) 1.3 L Baso % (Auto) 0.3 Neut # (Auto) 31573 H Lymph # (Auto) 1000 L Durham # (Auto) 1200 H Eos # (Auto) 200 Baso # (Auto) 0 ABG pH 7.29 L* ABG pCO2 52.5 H ABG pO2 78 L ABG HCO3 25 ABG Total CO2 27 ABG O2 Saturation 93 L ABG Base Excess -1.0 FiO2 0.30 Sodium 137 Potassium 3.7 Chloride 106 Carbon Dioxide 27 BUN 15 Creatinine 0.82 Estimated GFR > 60.0 BUN/Creatinine Ratio 18.3 Glucose 109 Calcium 7.5 L Magnesium 1.7 Total Bilirubin 0.7 AST 35 ALT 15 Alkaline Phosphatase 47 D Total Creatine Kinase Total Protein 5.2 L Albumin 2.4 L Globulin 2.8 Albumin/Globulin Ratio 0.9 L Procalcitonin 04/13/20 04/13/20 04/13/20 04:30 04:30 08:09 WBC RBC Hgb Hct MCV MCH MCHC RDW Plt Count Neut % (Auto) Lymph % (Auto) Durham % (Auto) Eos % (Auto) Baso % (Auto) Neut # (Auto) Lymph # (Auto) Durham # (Auto) Eos # (Auto) Baso # (Auto) ABG pH 7.30 L ABG pCO2 50.7 H ABG pO2 62 L ABG HCO3 25 ABG Total CO2 27 ABG O2 Saturation 88 L ABG Base Excess -1.0 FiO2 30 Sodium Potassium Chloride Carbon Dioxide BUN Creatinine Estimated GFR BUN/Creatinine Ratio Glucose Calcium Magnesium Total Bilirubin AST ALT Alkaline Phosphatase Total Creatine Kinase 624 H Total Protein Albumin Globulin Albumin/Globulin Ratio Procalcitonin 1.47 H Assessment & Plan Assessment & Plan narrative: Eduardo King is a 65-year-old male with a 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 Given his initial presentation and concern for possible hemoptysis as well as chest imaging, he is currently awaiting a QuantiFERON gold test for TB evaluation. If negative he will proceed with EGD to evaluate the source of his likely upper GI bleeding. 1. Acute respiratory failure with hypoxemia,, present on admission, active -patient with a history of emphysema and is on home O2 at 2-4 liters/minute. Complained of increasing shortness of breath for 2 days developing blood tinged cough on admission. -patient presented with increasing hypoxemia progressive for 2 days requiring increase in oxygen level to 3.5, upon arrival respiratory rate is 30 heart rate is 116. -initial arterial blood gas reveals a pH of 7.49, pCO2 of 33.3, PO2 62, bicarb 33 with a base excess +9 on 32% FiO2. -multiple etiologies for hypoxemia including: COPD exacerbation-PF ratio 193.75, a gradient 109.8 with expected 86. Past history of smoking greater than 40 pack years. Pulmonary embolism-elevated D-dimer at 1609, CTA finds no central filling deficits and is negative for pulmonary embolism. Pneumonia- aspiration pneumonia with debris remaining in the esophagus on CT scan with history of CVA and dysphagia. Pneumonia-bacterial versus viral versus COVID-19, patient with elevated white count at 22 with increased neutrophils of 91.7%, increased procalcitonin an elevated CRP at 1.2 and patient initially afebrile upon arrival however temperature increased to 100.3 on admission to the floor. -Covid negative on admission, blood cultures have been negative. -04/12 the patient underwent intubation and resuscitation last evening and is now stabilized in the ICU on the ventilator. He will be kept intubated until an EGD can be done to establish because of his esophageal abnormality, hematemesis and poor airway protection. This will necessitate waiting for the results of the QuantiFERON gold which was ordered because of the atypical lesion in the left upper lung. That is expected to return in the next 2-3 days. General surgery is following. 2. Sepsis with respiratory compromise, present on admission, active. -patient with an elevated temperature upon arrival to the floor 100.3, and an elevated white count of 22.2 with increased neutrophils of 91.7 %, CRP of 1.2, procalcitonin 0.70. No extremity swelling or findings consistent with DVT. -the patient received sepsis bolus in the ER with 2100 cc of normal saline, blood cultures are drawn and he is started on Levaquin 750 mg IV. -he continues on 04/12 to have an elevated white blood count and procalcitonin. His chest x-ray shows no definite pneumonia. A sputum culture is pending. He continues on IV Zosyn. -it is unclear whether the patient was in shock or if he was hypotensive secondary to sedating medications. He has improved slightly today and is no longer requiring pressors. He did clearly have a leukocytosis, elevated procalcitonin, and presentation consistent with pneumonia. CT abdomen did not show an intra-abdominal source. Suspect sepsis is secondary to aspiration pneumonia at this time, but hypotension is likely multifactorial given sepsis, acute blood loss anemia, and sedating medications. 3. Possible pneumonia secondary to aspiration, acute, present on admission, active. -patient with cough developing blood-tinged sputum on day of admission, complaints of fevers and chills. However blood tinged sputum may be as result of the GI bleed -pneumonia not evident on any of his chest x-rays or CT scans. -initially on Levaquin and Azithromycin -/ started on Zosyn -6/7 now intubated until QuantiFERON gold results return and EGD is done. 4. Acute blood loss anemia secondary to likely upper GI bleed -3 units packed red blood cells given with follow-up hemoglobin 8.1 decreased again to 7.4 today. That will be followed. Bleeding from his lines have improved. -continue octreotide and IV Protonix drip pending EGD. 5. . Esophageal stricture, chronic -the patient has a prior history of esophageal stricture undergoing balloon dilation 2 years ago. Tamie Licona tear X 2 09/24 at [facility]. -on CT scan, debris is identified in the esophagus increasing the risk for aspiration. -speech therapy recommends NPO until Modified Barium Swallow can be done, subsequently intubated 04/11 -Bleeding improved with Octreotide and Protonix drips. Hgb 8.1 after 3 units prbc, follow. -GS consult with Dr. Escobar 04/11 6. 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 -the patient resides at [facility] and states that he is nonambulatory. -he has right arm splint and right lower leg AFO. -PT and OT consult to evaluate and treat. -holding while intubated home regimen of gabapentin 600 mg 3 times daily and baclofen 20 mg 3 times daily. 7. Essential hypertension, chronic, stable. -patient with a blood pressure 152/89 upon arrival. Blood pressure improves to 126/68 upon arrival to floor. -holding while intubated home regimen of benazepril 40 mg daily and amlodipine 10 mg daily. 8. Hyperlipidemia, chronic, stable. -holding while intubated home regimen of atorvastatin 40 mg daily at bedtime. 9. Nicotine dependence, chronic, stable. -patient quit smoking in July of 2019, he has been using nicotine lozenges at [facility]. -ordered Nicoderm patch daily. 10. Leukocytosis -Suspect esophageal process versus occult pneumonia -Antibiotic coverage of Azithromycin and Zosyn -Follow daily CBC, this has been improving on antibiotics, initial procalcitonin also elevated which has been improving. -GS consulted 10. GI bleeding, acute - managemet as noted aabove. 11. Nutrition -consider TPN or PPN as we anticipate him to be intubated for 3-4 days while waiting for the TB results and the subsequent EGD. At this point with a PICC line and 1 peripheral line we do not have ready access for the additional TPN. Will consider tomorrow if no QuantiFERON test has returned. Isolation: Remains on airborne with TB rule out VTE prophylaxis: Bilateral compression hose, Hold Enoxaparin due to GI bleeding IV fluid: Normal saline 100 cc/hour Diet: Heart healthy low-sodium dysphagia diet Code status: FULL CODE, patient's friend El Nielsen is is surrogate decision maker. No call backs from attempts to contact listed friends of Abram Gleason and Alex Shafer VTE Deep Vein Thrombosis/Pulmonary Embolism Present on Admission: No
[2020-04-13 19:19] LABS: Hematocrit 24.8 % (41-53); Hemoglobin 8.1 g/dL (13.5-17.5)
[2020-04-13] MEDS: FUROSEMIDE 40 MG/4 ML VIAL IV (20:42)
[2020-04-14] VITALS (26 sets, daily range): BP systolic 92–158; BP diastolic 50–76; PULSE 72–112; RESP 12–31; TEMP 37.2–37.7; O2SAT 93–100
[2020-04-14] MEDS: PANTOPRAZOLE 80 MG in SODIUM CHLORIDE 0.9% 100 ML 10 ML IV ×3 (01:04→18:28)
[2020-04-14] MEDS: ALBUTEROL HFA 60 PUFF/8 GM INH 8 PUFF INH ×9 (02:01→23:22)
--- NOTE | 2020-04-14 02:26 | PC.NURSE ---
Addendum entered by Joann Hendrickson R.N. 04/14/20 06:16: Versed has been titrated up to 9mg/hr, patient triggering 'high pressures' repositioned and HOB up to 35 degrees. Tolerated ABG. 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 Versed gtt at 8mg/hr, Fentanyl gtt at 1mcg, patient is sedated but does have purposeful movements during care and turning. SA rate 80s-90s, BP stable, see vital trends. NGT patent to LIS with dark greenish red drainage, irrigated per order. Protonix and ostreotide infusing per order. Temp 99.6, cold clothe to forehead. 0100-Versed gtt decreased to 7mg/hr for RASS -3 and BP 92/53(69). 850ml pale yellow urine drained from Ann.
[2020-04-14] MEDS: MIDAZOLAM 50 MG in DEXTROSE 5% IN WATER 250 ML 40 ML IV (03:19)
[2020-04-14] MEDS: OCTREOTIDE 500 MCG in SODIUM CHLORIDE 0.9% 100 ML 10.1 ML IV ×3 (03:19→23:58)
[2020-04-14] MEDS: SODIUM CHLORIDE 0.9% 1,000 ML 100 ML IV ×2 (03:19→13:27)
[2020-04-14] MEDS: PIPERACILLIN-TAZO 3.375 GM/50 ML FROZ.PIGGY IV ×4 (04:38→21:39)
[2020-04-14 05:44] LABS: HCO3 ABG 26 mmol/L (22-26); Oxygen Saturation ABG 95 % (95-100); PCO2 ABG 48.8 mmHg (35-45); PO2 ABG 79 mmHg (80-100); TCO2 ABG 28 mmol/L (21-31); pH ABG 7.34 (7.35-7.45)
[2020-04-14 06:20] LABS: Procalcitonin 0.62 ng/mL (<0.5)
[2020-04-14] MEDS: fentaNYL 1,000 MCG in DEXTROSE 5% IN WATER 230 ML 18.375 ML IV (08:20)
[2020-04-14 08:27] LABS: Add Manual Diff / Slide Review NO; Basophils Absolute Auto 100 /uL (0-100); Basophils Percent Auto 0.4 % (0-2); Eosinophils Absolute Auto 400 /uL (0-450); Eosinophils Percent Auto 2.8 % (2-4); Hemoglobin 7.6 g/dL (13.5-17.5); Lymphocytes Absolute Auto 1600 /uL (1100-4500); Lymphocytes Percent Auto 10.5 % (25-40); Mean Corpuscular HGB Conc 32.8 % (30-36); Mean Corpuscular Volume 88.3 fL (80-100); Monocytes Absolute Auto 1400 /uL (0-900); Neutrophils Absolute Auto 12000 /uL (1500-7000); Neutrophils Percent Auto 77.3 % (50-75); Platelet Count 236 X10^3/uL (150-400); Red Blood Cell Count 2.61 X10^6/uL (4.5-5.9); Red Cell Distribution Width 15.8 % (11.6-14.8); White Blood Cell Count 15.5 X10^3/uL (4.5-11.0)
[2020-04-14] MEDS: SODIUM CHLORIDE 0.9% FLUSH 10 ML IV (08:28)
[2020-04-14 08:38] LABS: BUN Creatinine Ratio 10.6 (6-22); Blood Urea Nitrogen 9 mg/dL (9-20); Calcium 7.5 mg/dL (8.4-10.2); Carbon Dioxide 28 mmol/L (22-32); Chloride 103 mmol/L (98-107); Estimated Glomerular Filt Rate > 60.0 mL/min (>60); Glucose 110 mg/dL (80-110); HEMOLYSIS < 15 (0-50); Potassium 3.8 mmol/L (3.4-5.1); Sodium 134 mmol/L (137-145)
[2020-04-14] MEDS: LORazepam 2 MG/ML INJ IV ×2 (08:40→16:45)
[2020-04-14] MEDS: MIDAZOLAM 50 MG in DEXTROSE 5% IN WATER 250 ML 45 ML IV ×3 (09:19→21:37)
[2020-04-14 10:47] LABS: Fractionated Inspired Oxygen 30; HCO3 ABG 26 mmol/L (22-26); Oxygen Saturation ABG 93 % (95-100); PCO2 ABG 53.9 mmHg (35-45); PO2 ABG 74 mmHg (80-100); TCO2 ABG 28 mmol/L (21-31)
[2020-04-14] MEDS: FUROSEMIDE 40 MG/4 ML VIAL IV ×2 (12:30→21:39)
--- NOTE | 2020-04-14 12:33 | SLP.IPNOTE ---
Pt continues on ventilator. Will d/c from ST services for now and await new orders if appropriate.
[2020-04-14 13:36] LABS: QuantiFERON Mitogen Value 3.49 IU/mL (.); QuantiFERON Nil Value 0.01 IU/mL (.); QuantiFERON TB Gold Plus Negative (Negative); QuantiFERON TB1 Ag Value 0.01 IU/mL (.); QuantiFERON TB2 Ag Value 0.01 IU/mL (.)
--- NOTE | 2020-04-14 13:46 | CM.DPNOTE ---
DCP/continued: Reviewed chart. Patient remains on vent in TB precautions. At this time TB test result pending. Had discussion with provider in AM rounds about next steps? EGD cancelled for today due to TB result not available. At this time could take up to 7 days for result? Dr. Lucas provided with pager at to check on other options for medically treating this patient. Patient may need to transfer to facility that can accommodate quicker TB result times and/or recommendations for quicker testing. P: Pending. Anticipate transfer to higher level of care vs. remaining at ? JEAN PAUL Rapp
--- NOTE | 2020-04-14 14:27 | DI.RAD.S_ITS ---
PROCEDURE: XR CHEST 1V INDICATIONS: declining resp. function TECHNIQUE: One view of the chest was acquired. COMPARISON: [facility], CR, XR CHEST 1V, 04/13/2020, 6:10. FINDINGS: Surgical changes and devices: ET tube tip is 4 cm above the jorge luis. NG tube tip is in the region of stomach lumen below the left hemidiaphragm. Right-sided PICC line tip is in SVC.. Lungs and pleura: Left upper lobe oval nodule is again seen, unchanged from prior CT and chest radiograph. No pleural effusions or pneumothorax. Increased interstitial lung markings are again noted, unchanged from prior study. Mediastinum: Mediastinal contours appear normal. Heart size is normal. Bones and chest wall: No suspicious bony lesions. Overlying soft tissues appear unremarkable. IMPRESSION: ET tube tip is now 4 cm above the jorge luis. No definite focal infiltrate. No pneumothorax. Chronic increased interstitial lung markings and stable appearing left upper lobe mass. Dictated by: Aroldo Dubois M.D. on 04/14/2020 at 15:33 Approved by: Aroldo Dubois M.D. on 04/14/2020 at 15:41
--- NOTE | 2020-04-14 14:33 | PM.PN.1 ---
Subjective Subjective Date Patient Seen: 04/14/20 Time Patient Seen: 14:33 Interval history: No acute events overnight. TB result still pending so EGD was postponed. Exam Vital Signs (past 8 hours): - 04/14/20 08:00 04/14/20 10:00 04/14/20 12:15 Temperature 99.2 F 98.9 F Pulse Rate 106 H 76 72 Respiratory Rate 18 28 H 28 H Blood Pressure 124/59 L 94/55 L 98/55 L Pulse Oximetry 99 100 100 Fraction of Inspired Oxygen 0.3 Oxygen Delivery Method Mechanical Ventilation Oxygen Flow Rate 0 Narrative Exam Narrative: GENERAL: Intubated, sedated HENT: Normocephalic, atraumatic. NGT in place with dark bloody/bilious output CARDIOVASCULAR: Regular rate. No pedal edema. Normotensive on no pressors. RESPIRATORY: On vent; see report for settings; satting well GASTROINTESTINAL: Nondistended MUSCULOSKELETAL: Right hemiparesis; right arm splint SKIN: Appropriate color for ethnicity. No other lesions, rashes, or wounds. Objective Labs Result Diagrams: 04/14/20 08:15 04/14/20 08:15 Labs: Laboratory Results - last 24 hr 04/11/20 04/12/20 04/13/20 18:51 04:15 19:09 WBC RBC Hgb 8.1 L Hct 24.8 L MCV MCH MCHC RDW Plt Count Neut % (Auto) Lymph % (Auto) Mcpherson % (Auto) Eos % (Auto) Baso % (Auto) Neut # (Auto) Lymph # (Auto) [place]pherson # (Auto) Eos # (Auto) Baso # (Auto) ABG pH 7.30 L ABG pCO2 56.9 H ABG pO2 505 H* ABG HCO3 28 H ABG Total CO2 30 ABG O2 Saturation 100 ABG Base Excess 2.0 FiO2 100 Sodium Potassium Chloride Carbon Dioxide BUN Creatinine Estimated GFR BUN/Creatinine Ratio Glucose Calcium Procalcitonin TB (QFT) Gold In Tube Negative TB Test (QFT) Mitogen 3.49 TB Test Antigen - Nil 0.01 TB Test Ag - Nil 1 0.01 TB Test Ag - Nil 2 0.01 TB Positive Criteria Comment 04/14/20 04/14/20 04/14/20 05:30 05:36 08:15 WBC 15.5 H RBC 2.61 L Hgb 7.6 L Hct 23.0 L MCV 88.3 MCH 29.0 MCHC 32.8 RDW 15.8 H Plt Count 236 Neut % (Auto) 77.3 H Lymph % (Auto) 10.5 L Mcpherson % (Auto) 9.0 Eos % (Auto) 2.8 Baso % (Auto) 0.4 Neut # (Auto) 41320 H Lymph # (Auto) 1600 Mcpherson # (Auto) 1400 H Eos # (Auto) 400 Baso # (Auto) 100 ABG pH 7.34 L ABG pCO2 48.8 H ABG pO2 79 L ABG HCO3 26 ABG Total CO2 28 ABG O2 Saturation 95 ABG Base Excess 0.0 FiO2 0.30 Sodium Potassium Chloride Carbon Dioxide BUN Creatinine Estimated GFR BUN/Creatinine Ratio Glucose Calcium Procalcitonin 0.62 H TB (QFT) Gold In Tube TB Test (QFT) Mitogen TB Test Antigen - Nil TB Test Ag - Nil 1 TB Test Ag - Nil 2 TB Positive Criteria 04/14/20 04/14/20 08:15 10:23 WBC RBC Hgb Hct MCV MCH MCHC RDW Plt Count Neut % (Auto) Lymph % (Auto) Mcpherson % (Auto) Eos % (Auto) Baso % (Auto) Neut # (Auto) Lymph # (Auto) [place]pherson # (Auto) Eos # (Auto) Baso # (Auto) ABG pH 7.30 L ABG pCO2 53.9 H ABG pO2 74 L ABG HCO3 26 ABG Total CO2 28 ABG O2 Saturation 93 L ABG Base Excess 0.0 FiO2 30 Sodium 134 L Potassium 3.8 Chloride 103 Carbon Dioxide 28 BUN 9 Creatinine 0.85 Estimated GFR > 60.0 BUN/Creatinine Ratio 10.6 Glucose 110 Calcium 7.5 L Procalcitonin TB (QFT) Gold In Tube TB Test (QFT) Mitogen TB Test Antigen - Nil TB Test Ag - Nil 1 TB Test Ag - Nil 2 TB Positive Criteria Assessment & Plan Assessment & Plan narrative: 65 yo man with complex medical history, here with anemia and leukocytosis of uknown etiology. NGT output is indicative of an upper GI source, which has improved on octreotide. Based on his CT scan it is likely an infectious or neoplastic etiology in the esophagus. He is currently being ruled out for TB. We had scheduled him for EGD today, but TB rule out is still pending. Recommendations: Transfuse as needed PPI 40mg IV bid or PPI gtt Octreotide gtt Serial hgb Agree with broad spectrum antibiotics and empiric anti fungal therapy empirically for esophagitis/candidiasis We will schedule him for EGD once TB status is known. Will need POA consent or two doctor emergency consent. COVID-19 COVID-19 status: Negative Time Spent With Patient Time with patient: less than 15 minutes Quality VTE Deep Vein Thrombosis/Pulmonary Embolism Present on Admission: No
[2020-04-14] MEDS: FLUCONAZOLE 200 MG/100 ML PIGGYBACK 100 MG IV (14:46)
--- NOTE | 2020-04-14 15:16 | PC.NURSE ---
Day Shift Note Pt intubated and sedated on fentanyl 1.25 mcg/kg/hr and versed 9 mg/hr. Opens eyes briefly to touch/name. SpO2 100% majority of shift on FiO2 of 30%. NSR with PACs in the 70s. Lung sounds coarse bilaterally with exp. rhonchi. White secretions suctioned out ET tube. NG tube to LIS with brown/yellow output and occasional berhane bloody output. Octreotide gtt and protonix gtt infusing. Bilateral wrist restraints in place. Ann catheter in place and draining clear yellow urine. TB results negative this afternoon - MD aware. Pt bathed at 1400 and increased work of breathing noted after with HR up to 110s and SpO2 decreasing to 80s-low 90s. RT at bedside and performed ET suction, CXR ordered by MD and done. PT now appearing more comfortable with decreased stimulation, HR in the 90s, SPO2 94% on 30% FiO2, RR 28.
--- NOTE | 2020-04-14 16:18 | PM.PN.1 ---
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 His hemoglobin has been stable x3 between 7.6 and 8.1 over the past 24 hours. He remains sedated until EGD, which may be tomorrow hopefully given negative QUANT-Gold testing today. Patient taken off of airborne precautions. Sputum culture yesterday growing staph aureus however patient continues to clinically improve. If MRSA is found will add vancomycin, but will continue zosyn at this time. This may be contamination from the tube as well. CXR today was unremarkable. Exam Vital Signs (past 8 hours): - 04/14/20 10:00 04/14/20 12:15 04/14/20 14:00 Temperature 98.9 F Pulse Rate 76 72 112 H Respiratory Rate 28 H 28 H 28 H Blood Pressure 94/55 L 98/55 L 158/76 H Pulse Oximetry 100 100 96 Fraction of Inspired Oxygen 0.3 Oxygen Delivery Method Mechanical Ventilation Oxygen Flow Rate 0 Narrative Exam Narrative: GENERAL APPEARANCE: Well developed, well nourished male, intubated and sedated on Versed. Lines currently in place without any erythema or induration. SKIN: Inspection of the skin reveals no rashes, ulcerations or petechiae. HEENT: Normocephalic atraumatic, extraocular muscles are intact, oropharynx is clear and mucous membranes are moist, neck is supple without adenopathy NECK: Supple and symmetric. There was no thyroid enlargement, and no tenderness, or masses were felt. CHEST: Normal AP diameter and normal contour without any kyphoscoliosis. LUNGS: Auscultation of the lungs revealed slight rhonchi in the left middle lobe, otherwise mechanical breath sounds. CARDIOVASCULAR: There was a regular rate and rhythm without any murmurs, gallops, rubs. Peripheral pulses were 2+ and symmetric. ABDOMEN: Soft and nontender with normal bowel sounds. No ascites was noted. MUSCULOSKELETAL: There was no tenderness or effusions noted. Muscle strength and tone were normal. EXTREMITIES: No cyanosis, clubbing or edema. NEUROLOGIC: Sedated on Versed, not following commands, no eye opening. Objective Labs Result Diagrams: 04/14/20 08:15 04/14/20 08:15 Labs: Laboratory Results - last 24 hr 04/11/20 04/12/20 04/13/20 18:51 04:15 19:09 WBC RBC Hgb 8.1 L Hct 24.8 L MCV MCH MCHC RDW Plt Count Neut % (Auto) Lymph % (Auto) [place] % (Auto) Eos % (Auto) Baso % (Auto) Neut # (Auto) Lymph # (Auto) [place] # (Auto) Eos # (Auto) Baso # (Auto) ABG pH 7.30 L ABG pCO2 56.9 H ABG pO2 505 H* ABG HCO3 28 H ABG Total CO2 30 ABG O2 Saturation 100 ABG Base Excess 2.0 FiO2 100 Sodium Potassium Chloride Carbon Dioxide BUN Creatinine Estimated GFR BUN/Creatinine Ratio Glucose Calcium Procalcitonin TB (QFT) Gold In Tube Negative TB Test (QFT) Mitogen 3.49 TB Test Antigen - Nil 0.01 TB Test Ag - Nil 1 0.01 TB Test Ag - Nil 2 0.01 TB Positive Criteria Comment 04/14/20 04/14/20 04/14/20 05:30 05:36 08:15 WBC 15.5 H RBC 2.61 L Hgb 7.6 L Hct 23.0 L MCV 88.3 MCH 29.0 MCHC 32.8 RDW 15.8 H Plt Count 236 Neut % (Auto) 77.3 H Lymph % (Auto) 10.5 L [place] % (Auto) 9.0 Eos % (Auto) 2.8 Baso % (Auto) 0.4 Neut # (Auto) 97657 H Lymph # (Auto) 1600 [place] # (Auto) 1400 H Eos # (Auto) 400 Baso # (Auto) 100 ABG pH 7.34 L ABG pCO2 48.8 H ABG pO2 79 L ABG HCO3 26 ABG Total CO2 28 ABG O2 Saturation 95 ABG Base Excess 0.0 FiO2 0.30 Sodium Potassium Chloride Carbon Dioxide BUN Creatinine Estimated GFR BUN/Creatinine Ratio Glucose Calcium Procalcitonin 0.62 H TB (QFT) Gold In Tube TB Test (QFT) Mitogen TB Test Antigen - Nil TB Test Ag - Nil 1 TB Test Ag - Nil 2 TB Positive Criteria 04/14/20 04/14/20 08:15 10:23 WBC RBC Hgb Hct MCV MCH MCHC RDW Plt Count Neut % (Auto) Lymph % (Auto) [place] % (Auto) Eos % (Auto) Baso % (Auto) Neut # (Auto) Lymph # (Auto) [place] # (Auto) Eos # (Auto) Baso # (Auto) ABG pH 7.30 L ABG pCO2 53.9 H ABG pO2 74 L ABG HCO3 26 ABG Total CO2 28 ABG O2 Saturation 93 L ABG Base Excess 0.0 FiO2 30 Sodium 134 L Potassium 3.8 Chloride 103 Carbon Dioxide 28 BUN 9 Creatinine 0.85 Estimated GFR > 60.0 BUN/Creatinine Ratio 10.6 Glucose 110 Calcium 7.5 L Procalcitonin TB (QFT) Gold In Tube TB Test (QFT) Mitogen TB Test Antigen - Nil TB Test Ag - Nil 1 TB Test Ag - Nil 2 TB Positive Criteria Assessment & Plan Assessment & Plan narrative: Eduardo King is a 65-year-old male with a 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 He remains intubated until EGD which will hopefully be tomorrow. 1. Acute respiratory failure with hypoxemia,, present on admission, active -patient with a history of emphysema and is on home O2 at 2-4 liters/minute. Complained of increasing shortness of breath for 2 days developing blood tinged cough on admission. -patient presented with increasing hypoxemia progressive for 2 days requiring increase in oxygen level to 3.5, upon arrival respiratory rate is 30 heart rate is 116. -initial arterial blood gas reveals a pH of 7.49, pCO2 of 33.3, PO2 62, bicarb 33 with a base excess +9 on 32% FiO2. -multiple etiologies for hypoxemia including: COPD exacerbation-PF ratio 193.75, a gradient 109.8 with expected 86. Past history of smoking greater than 40 pack years. Pulmonary embolism-elevated D-dimer at 1609, CTA finds no central filling deficits and is negative for pulmonary embolism. Pneumonia- aspiration pneumonia with debris remaining in the esophagus on CT scan with history of CVA and dysphagia. Pneumonia-bacterial versus viral versus COVID-19, patient with elevated white count at 22 with increased neutrophils of 91.7%, increased procalcitonin an elevated CRP at 1.2 and patient initially afebrile upon arrival however temperature increased to 100.3 on admission to the floor. -Covid negative on admission, blood cultures have been negative. -04/12 the patient underwent intubation and resuscitation last evening and is now stabilized in the ICU on the ventilator. He will be kept intubated until an EGD can be done to establish because of his esophageal abnormality, hematemesis and poor airway protection. Awaiting timing from surgery as quant gold testing was negative today. 2. Sepsis with respiratory compromise, present on admission, active. -patient with an elevated temperature upon arrival to the floor 100.3, and an elevated white count of 22.2 with increased neutrophils of 91.7 %, CRP of 1.2, procalcitonin 0.70. No extremity swelling or findings consistent with DVT. -the patient received sepsis bolus in the ER with 2100 cc of normal saline, blood cultures are drawn and he is started on Levaquin 750 mg IV. -Did improve with zosyn with decreasing leukocytosis and procalcitonin. -it is unclear whether the patient was in shock or if he was hypotensive secondary to sedating medications. He has improved slightly today and is no longer requiring pressors. He did clearly have a leukocytosis, elevated procalcitonin, and presentation consistent with pneumonia. CT abdomen did not show an intra-abdominal source. Suspect sepsis is secondary to aspiration pneumonia at this time, but hypotension is likely multifactorial given sepsis, acute blood loss anemia, and sedating medications. 3. Possible pneumonia secondary to aspiration, acute, present on admission, active. -patient with cough developing blood-tinged sputum on day of admission, complaints of fevers and chills. However blood tinged sputum may be as result of the GI bleed -pneumonia not evident on any of his chest x-rays or CT scans. -initially on Levaquin and Azithromycin -04/11 started on Zosyn -/7 intubated until QuantiFERON gold results return and EGD is done. 4. Acute blood loss anemia secondary to likely upper GI bleed -3 units packed red blood cells given with follow-up hemoglobin 8.1. Has been stable between 7.4 and 8.1 since. Continue to follow. -continue octreotide and IV Protonix drip pending EGD. 5. . Esophageal stricture, chronic -the patient has a prior history of esophageal stricture undergoing balloon dilation 2 years ago. Tamie Licona tear X 2 09/24 at [facility]. -on CT scan, debris is identified in the esophagus increasing the risk for aspiration. -speech therapy recommends NPO until Modified Barium Swallow can be done, subsequently intubated 04/11 -Bleeding improved with Octreotide and Protonix drips. Hgb 8.1 after 3 units prbc, follow. -GS consult with Dr. Escobar 04/11 6. 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 -the patient resides at [facility] and states that he is nonambulatory. -he has right arm splint and right lower leg AFO. -PT and OT consult to evaluate and treat. -holding while intubated home regimen of gabapentin 600 mg 3 times daily and baclofen 20 mg 3 times daily. 7. Essential hypertension, chronic, stable. -patient with a blood pressure 152/89 upon arrival. Blood pressure improves to 126/68 upon arrival to floor. -holding while intubated home regimen of benazepril 40 mg daily and amlodipine 10 mg daily. 8. Hyperlipidemia, chronic, stable. -holding while intubated home regimen of atorvastatin 40 mg daily at bedtime. 9. Nicotine dependence, chronic, stable. -patient quit smoking in July of 2019, he has been using nicotine lozenges at [facility]. -ordered Nicoderm patch daily. 10. GI bleeding, acute - managemet as noted aabove. 11. Nutrition -Plan for TPN or PPN tomorrow after EGD pending results. At this point with a PICC line and 1 peripheral line we do not have ready access for the additional TPN. Isolation: Remains on airborne with TB rule out VTE prophylaxis: Bilateral compression hose, Hold Enoxaparin due to GI bleeding IV fluid: Normal saline 100 cc/hour Diet: Heart healthy low-sodium dysphagia diet Code status: FULL CODE, patient's friend El Nielsen is is surrogate decision maker. No call backs from attempts to contact listed friends of Abram Gleason and Alex Shafer VTE Deep Vein Thrombosis/Pulmonary Embolism Present on Admission: No
[2020-04-14] MEDS: DEXTROSE 5%-0.9% NS 1,000 ML 100 ML IV (18:43)
[2020-04-14] MEDS: fentaNYL 1,000 MCG in DEXTROSE 5% IN WATER 230 ML 22.969 ML IV (18:44)
[2020-04-14] MEDS: MAGNESIUM SULFATE 2 GM/50 ML PIGGYBACK IV (20:03)
[2020-04-15] VITALS (25 sets, daily range): BP systolic 90–136; BP diastolic 47–65; PULSE 68–103; RESP 28–32; TEMP 36.8–37.7; O2SAT 94–100
--- NOTE | 2020-04-15 | PATH_ITS ---
[facility] Accession Number: [id number] . 01 Material submitted: . PART A: gastrointestinal site - GASTRIC MUCOSA PART B: esophagus - DISTAL ESOPHAGUS PART C: esophagus - ESOPHAGUS 35CM PART D: esophagus - ESOPHAGUS 30CM . 01 Clinical history: . BLOOD IN SPUTUM . 02 Diagnosis: A. Stomach, Biopsy: Antral mucosa with mild chronic gastritis. Negative for Helicobacter by immunohistochemistry. Negative for intestinal metaplasia. Negative for dysplasia and malignancy. . B. Distal Esophagus, Biopsies: Ulcerated columnar mucosa. Negative for intestinal metaplasia by Alcian blue stain. Negative for dysplasia and malignancy. . C. Esophagus 35 cm, Biopsy: Ulcerated denuded mucosa. PAS stain is negative for fungal organisms. Negative for dysplasia and malignancy. . D. Esophagus, 30 cm, Biopsy: Fibrinopurulent exudate and ulcer bed debris. Negative for dysplasia and malignancy. [facility] 04/20/2020 1651 Local . 02 Comment: The esophageal biopsies all show ulcerative changes. The differential diagnosis includes chemical/thermal injury, pill esophagitis, and infection. An underlying dermatologic condition cannot be excluded. An unsampled neoplasm could also be considered in the appropriate clinical and endoscopic context. . 02 Electronically signed: . Salome Sigala MD, Pathologist NPI- [id number] . 01 Gross description: . Part A: GASTRIC MUCOSA: Received in formalin is 1 fragment(s) of clancy, soft tissue measuring 0.1 x 0.1 x 0.1 cm submitted entirely in 1 cassette(s) Part B: DISTAL ESOPHAGUS: Received in formalin are 4 fragment(s) of clancy, soft tissue measuring 0.1 x 0.1 x 0.1 cm to 0.2 x 0.1 x 0.1 cm submitted entirely in 1 cassette(s) Part C: ESOPHAGUS 35CM: Received in formalin is 1 fragment(s) of clancy, soft tissue measuring 0.1 x 0.1 x 0.1 cm submitted entirely in 1 cassette(s) Part D: ESOPHAGUS 30CM: Received in formalin is 1 fragment(s) of clancy, soft tissue measuring 0.2 x 0.1 x 0.1 cm submitted entirely in 1 cassette(s) /MAGNO 04/16/2020 1809 Local . 02 Microscopic: . A. An immunohistochemical stain was performed to evaluate for Helicobacter organisms and is negative. The control stain showed appropriate reactivity. . B. An AB/PAS stain was performed to evaluate for intestinal metaplasia or fungal organisms and was negative for both, respectively. The control stain showed appropriate reactivity. . C, D. PAS stains were performed on blocks C and D in order to evaluate for fungal organisms and are both negative. The control stain showed appropriate reactivity. . * This test was developed and its performance characteristics determined by [facility]. It has not been cleared or approved by the U.S. Food and Drug Administration. The FDA has determined that such clearance or approval is not necessary. This test is used for clinical purposes. It should not be regarded as investigational or for research. . 02 Pathologist provided ICD-10: R10.13 . 02 CPT . 458856, 059294, 968103, 299784, G03282, 705016, 800335, [id number] Performed at: 01 [facility] [address] [id number] MD Yogi Juarez MD Phone: [phone] Performed at: 02 [facility] [id number] [place] [id number] MD Salome Sigala MD Phone: [phone]
[2020-04-15] MEDS: POTASSIUM CHLORIDE 40 MEQ in SODIUM CHLORIDE 0.9% 500 ML 130 ML IV (01:42)
[2020-04-15] MEDS: MIDAZOLAM 50 MG in DEXTROSE 5% IN WATER 250 ML 45 ML IV ×4 (02:54→20:42)
[2020-04-15] MEDS: ALBUTEROL HFA 60 PUFF/8 GM INH 8 PUFF INH ×4 (03:46→16:25)
[2020-04-15] MEDS: PANTOPRAZOLE 80 MG in SODIUM CHLORIDE 0.9% 100 ML 10 ML IV ×2 (04:27→16:50)
[2020-04-15] MEDS: PIPERACILLIN-TAZO 3.375 GM/50 ML FROZ.PIGGY IV ×4 (04:41→22:33)
[2020-04-15 05:12] LABS: HCO3 ABG 29 mmol/L (22-26); Oxygen Saturation ABG 96 % (95-100); PCO2 ABG 44.6 mmHg (35-45); PO2 ABG 78 mmHg (80-100); TCO2 ABG 31 mmol/L (21-31); pH ABG 7.43 (7.35-7.45)
[2020-04-15 05:55] LABS: Add Manual Diff / Slide Review NO; Basophils Absolute Auto 0 /uL (0-100); Basophils Percent Auto 0.3 % (0-2); Eosinophils Absolute Auto 400 /uL (0-450); Eosinophils Percent Auto 3.1 % (2-4); Hematocrit 21.2 % (41-53); Lymphocytes Absolute Auto 700 /uL (1100-4500); Lymphocytes Percent Auto 5.1 % (25-40); Mean Corpuscular HGB Conc 33.2 % (30-36); Mean Corpuscular Hemoglobin 29.3 PG (26-34); Mean Corpuscular Volume 88.3 fL (80-100); Monocytes Absolute Auto 1200 /uL (0-900); Monocytes Percent Auto 8.6 % (3-14); Neutrophils Absolute Auto 11500 /uL (1500-7000); Neutrophils Percent Auto 82.9 % (50-75); Platelet Count 254 X10^3/uL (150-400); Red Cell Distribution Width 15.8 % (11.6-14.8); White Blood Cell Count 13.9 X10^3/uL (4.5-11.0)
[2020-04-15] MEDS: fentaNYL 1,000 MCG in DEXTROSE 5% IN WATER 230 ML 22.969 ML IV (06:04)
[2020-04-15 06:05] LABS: Alanine Aminotransferase 12 IU/L (<50); Albumin 2.4 g/dL (3.5-5.0); Albumin Globulin Ratio 0.8 (1.0-2.8); Alkaline Phosphatase 48 U/L (38-126); Aspartate Aminotransferase 33 IU/L (17-59); BUN Creatinine Ratio 8.9 (6-22); Bilirubin Total 0.5 mg/dL (0.2-1.3); Bilirubin Unconjugated 0.6 mg/dL (0.0-1.1); Blood Urea Nitrogen 8 mg/dL (9-20); Calcium 7.4 mg/dL (8.4-10.2); Carbon Dioxide 32 mmol/L (22-32); Chloride 99 mmol/L (98-107); Estimated Glomerular Filt Rate > 60.0 mL/min (>60); Globulin 3.1 g/dL (1.7-4.1); Glucose 112 mg/dL (80-110); HEMOLYSIS < 15 (0-50); Magnesium 1.5 mg/dL (1.6-2.3); Phosphorous 2.6 mg/dL (2.3-3.7); Potassium 4.1 mmol/L (3.4-5.1); Sodium 133 mmol/L (137-145); Total Protein 5.5 g/dL (6.3-8.2)
[2020-04-15] MEDS: MAGNESIUM SULFATE 2 GM/50 ML PIGGYBACK IV (06:48)
--- NOTE | 2020-04-15 07:13 | PM.PN.1 ---
Subjective Subjective Date Patient Seen: 04/14/20 Time Patient Seen: 14:33 Interval history: No acute events overnight. EGD was cancelled yesterday due to pending TB test, but now is returned negative. Will plan on EGD today. Exam Vital Signs (past 8 hours): - 04/15/20 00:00 04/15/20 02:00 04/15/20 04:00 Temperature 98.2 F 98.3 F Pulse Rate 86 75 73 Respiratory Rate 28 H 28 H 28 H Blood Pressure 102/54 L 91/55 L 98/52 L Pulse Oximetry 98 98 100 04/15/20 06:00 Temperature Pulse Rate 74 Respiratory Rate 28 H Blood Pressure 92/53 L Pulse Oximetry 100 Fraction of Inspired Oxygen 0.3 Oxygen Delivery Method Mechanical Ventilation Oxygen Flow Rate 0 Narrative Exam Narrative: GENERAL: Intubated, sedated HENT: Normocephalic, atraumatic. NGT in place with green thin bilious output CARDIOVASCULAR: Regular rate. No pedal edema. Normotensive on no pressors. RESPIRATORY: On vent; see report for settings; satting well GASTROINTESTINAL: Nondistended; soft; no grimace with exam MUSCULOSKELETAL: Right hemiparesis; right arm splint SKIN: Appropriate color for ethnicity. No other lesions, rashes, or wounds. Objective Labs Result Diagrams: 04/15/20 05:15 04/15/20 05:15 Labs: Laboratory Results - last 24 hr 04/11/20 04/12/20 04/14/20 17:48 04:15 08:15 WBC 15.5 H RBC 2.61 L Hgb 7.6 L Hct 23.0 L MCV 88.3 MCH 29.0 MCHC 32.8 RDW 15.8 H Plt Count 236 Neut % (Auto) 77.3 H Lymph % (Auto) 10.5 L [place] % (Auto) 9.0 Eos % (Auto) 2.8 Baso % (Auto) 0.4 Neut # (Auto) 95455 H Lymph # (Auto) 1600 [place] # (Auto) 1400 H Eos # (Auto) 400 Baso # (Auto) 100 ABG pH ABG pCO2 ABG pO2 ABG HCO3 ABG Total CO2 ABG O2 Saturation ABG Base Excess FiO2 Sodium Potassium Chloride Carbon Dioxide BUN Creatinine Estimated GFR BUN/Creatinine Ratio Glucose Calcium Phosphorus Magnesium Total Bilirubin Conjugated Bilirubin Unconjugated Bilirubin AST ALT Alkaline Phosphatase Total Protein Albumin Globulin Albumin/Globulin Ratio TB (QFT) Gold In Tube Negative TB Test (QFT) Mitogen 3.49 TB Test Antigen - Nil 0.01 TB Test Ag - Nil 1 0.01 TB Test Ag - Nil 2 0.01 TB Positive Criteria Comment Crossmatch See Detail 04/14/20 04/14/20 04/15/20 08:15 10:23 05:00 WBC RBC Hgb Hct MCV MCH MCHC RDW Plt Count Neut % (Auto) Lymph % (Auto) [place] % (Auto) Eos % (Auto) Baso % (Auto) Neut # (Auto) Lymph # (Auto) [place] # (Auto) Eos # (Auto) Baso # (Auto) ABG pH 7.30 L 7.43 ABG pCO2 53.9 H 44.6 ABG pO2 74 L 78 L ABG HCO3 26 29 H ABG Total CO2 28 31 ABG O2 Saturation 93 L 96 ABG Base Excess 0.0 5.0 H FiO2 30 0.30 Sodium 134 L Potassium 3.8 Chloride 103 Carbon Dioxide 28 BUN 9 Creatinine 0.85 Estimated GFR > 60.0 BUN/Creatinine Ratio 10.6 Glucose 110 Calcium 7.5 L Phosphorus Magnesium Total Bilirubin Conjugated Bilirubin Unconjugated Bilirubin AST ALT Alkaline Phosphatase Total Protein Albumin Globulin Albumin/Globulin Ratio TB (QFT) Gold In Tube TB Test (QFT) Mitogen TB Test Antigen - Nil TB Test Ag - Nil 1 TB Test Ag - Nil 2 TB Positive Criteria Crossmatch 04/15/20 04/15/20 05:15 05:15 WBC 13.9 H RBC 2.40 L Hgb 7.0 L Hct 21.2 L MCV 88.3 MCH 29.3 MCHC 33.2 RDW 15.8 H Plt Count 254 Neut % (Auto) 82.9 H Lymph % (Auto) 5.1 L [place] % (Auto) 8.6 Eos % (Auto) 3.1 Baso % (Auto) 0.3 Neut # (Auto) 11751 H Lymph # (Auto) 700 L [place] # (Auto) 1200 H Eos # (Auto) 400 Baso # (Auto) 0 ABG pH ABG pCO2 ABG pO2 ABG HCO3 ABG Total CO2 ABG O2 Saturation ABG Base Excess FiO2 Sodium 133 L Potassium 4.1 Chloride 99 Carbon Dioxide 32 BUN 8 L Creatinine 0.90 Estimated GFR > 60.0 BUN/Creatinine Ratio 8.9 Glucose 112 H Calcium 7.4 L Phosphorus 2.6 Magnesium 1.5 L Total Bilirubin 0.5 Conjugated Bilirubin 0.0 Unconjugated Bilirubin 0.6 AST 33 ALT 12 Alkaline Phosphatase 48 Total Protein 5.5 L Albumin 2.4 L Globulin 3.1 Albumin/Globulin Ratio 0.8 L TB (QFT) Gold In Tube TB Test (QFT) Mitogen TB Test Antigen - Nil TB Test Ag - Nil 1 TB Test Ag - Nil 2 TB Positive Criteria Crossmatch Assessment & Plan Assessment & Plan narrative: 65 yo man with complex medical history, here with anemia and leukocytosis of uknown etiology. CT scan shows thickened esophagus, possible neoplasm vs. infectious etiology. Will plan on EGD today for diagnosis. Recommendations: Transfuse as needed per hospitalist PPI 40mg IV bid or PPI gtt Octreotide gtt Serial hgb Agree with broad spectrum antibiotics and empiric anti fungal therapy empirically for esophagitis/candidiasis On schedule for EGD this afternoon. Will need POA consent or two doctor emergency consent. COVID-19 COVID-19 status: Negative Time Spent With Patient Time with patient: less than 15 minutes Quality VTE Deep Vein Thrombosis/Pulmonary Embolism Present on Admission: No
[2020-04-15] MEDS: SODIUM CHLORIDE 0.9% FLUSH 10 ML IV ×2 (09:31→20:42)
[2020-04-15] MEDS: FUROSEMIDE 40 MG/4 ML VIAL IV (09:32)
[2020-04-15] MEDS: OCTREOTIDE 500 MCG in SODIUM CHLORIDE 0.9% 100 ML 10.1 ML IV (11:18)
--- NOTE | 2020-04-15 11:55 | PM.PN.1 ---
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 His hemoglobin dropped slightly to 7.0 today and he will be transfused 1 unit PRBC in anticipation of EGD later today with general surgery. Will likely start sedation trials tomorrow. Have ordered a midline and patient will start PPN today, and will await EGD results before deciding if patient can be fed through his NG tube. Exam Vital Signs (past 8 hours): - 04/15/20 04:00 04/15/20 06:00 04/15/20 08:00 Temperature 98.3 F 98.4 F Pulse Rate 73 74 74 Respiratory Rate 28 H 28 H 28 H Blood Pressure 98/52 L 92/53 L 91/52 L Pulse Oximetry 100 100 97 04/15/20 10:00 Temperature Pulse Rate 79 Respiratory Rate 28 H Blood Pressure 104/52 L Pulse Oximetry 99 Fraction of Inspired Oxygen 0.3 Oxygen Delivery Method Mechanical Ventilation Oxygen Flow Rate 0 Narrative Exam Narrative: GENERAL APPEARANCE: Well developed, well nourished male, intubated and sedated on Versed. Lines currently in place without any erythema or induration. SKIN: Inspection of the skin reveals no rashes, ulcerations or petechiae. HEENT: Normocephalic atraumatic, extraocular muscles are intact, oropharynx is clear and mucous membranes are moist, neck is supple without adenopathy NECK: Supple and symmetric. There was no thyroid enlargement, and no tenderness, or masses were felt. CHEST: Normal AP diameter and normal contour without any kyphoscoliosis. LUNGS: Auscultation of the lungs revealed slight rhonchi in the left middle lobe, otherwise mechanical breath sounds. CARDIOVASCULAR: There was a regular rate and rhythm without any murmurs, gallops, rubs. Peripheral pulses were 2+ and symmetric. ABDOMEN: Soft and nontender with normal bowel sounds. No ascites was noted. MUSCULOSKELETAL: There was no tenderness or effusions noted. Muscle strength and tone were normal. EXTREMITIES: No cyanosis, clubbing or edema. NEUROLOGIC: Sedated on Versed, not following commands, no eye opening. Objective Labs Result Diagrams: 04/15/20 05:15 04/15/20 05:15 Labs: Laboratory Results - last 24 hr 04/11/20 04/12/20 04/15/20 17:48 04:15 05:00 WBC RBC Hgb Hct MCV MCH MCHC RDW Plt Count Neut % (Auto) Lymph % (Auto) [place] % (Auto) Eos % (Auto) Baso % (Auto) Neut # (Auto) Lymph # (Auto) [place] # (Auto) Eos # (Auto) Baso # (Auto) ABG pH 7.43 ABG pCO2 44.6 ABG pO2 78 L ABG HCO3 29 H ABG Total CO2 31 ABG O2 Saturation 96 ABG Base Excess 5.0 H FiO2 0.30 Sodium Potassium Chloride Carbon Dioxide BUN Creatinine Estimated GFR BUN/Creatinine Ratio Glucose Calcium Phosphorus Magnesium Total Bilirubin Conjugated Bilirubin Unconjugated Bilirubin AST ALT Alkaline Phosphatase Total Protein Albumin Globulin Albumin/Globulin Ratio TB (QFT) Gold In Tube Negative TB Test (QFT) Mitogen 3.49 TB Test Antigen - Nil 0.01 TB Test Ag - Nil 1 0.01 TB Test Ag - Nil 2 0.01 TB Positive Criteria Comment Crossmatch See Detail 04/15/20 04/15/20 05:15 05:15 WBC 13.9 H RBC 2.40 L Hgb 7.0 L Hct 21.2 L MCV 88.3 MCH 29.3 MCHC 33.2 RDW 15.8 H Plt Count 254 Neut % (Auto) 82.9 H Lymph % (Auto) 5.1 L [place] % (Auto) 8.6 Eos % (Auto) 3.1 Baso % (Auto) 0.3 Neut # (Auto) 01022 H Lymph # (Auto) 700 L [place] # (Auto) 1200 H Eos # (Auto) 400 Baso # (Auto) 0 ABG pH ABG pCO2 ABG pO2 ABG HCO3 ABG Total CO2 ABG O2 Saturation ABG Base Excess FiO2 Sodium 133 L Potassium 4.1 Chloride 99 Carbon Dioxide 32 BUN 8 L Creatinine 0.90 Estimated GFR > 60.0 BUN/Creatinine Ratio 8.9 Glucose 112 H Calcium 7.4 L Phosphorus 2.6 Magnesium 1.5 L Total Bilirubin 0.5 Conjugated Bilirubin 0.0 Unconjugated Bilirubin 0.6 AST 33 ALT 12 Alkaline Phosphatase 48 Total Protein 5.5 L Albumin 2.4 L Globulin 3.1 Albumin/Globulin Ratio 0.8 L TB (QFT) Gold In Tube TB Test (QFT) Mitogen TB Test Antigen - Nil TB Test Ag - Nil 1 TB Test Ag - Nil 2 TB Positive Criteria Crossmatch Assessment & Plan Assessment & Plan narrative: Eduardo King is a 65-year-old male with a 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 He remains intubated until EGD which is planned for later today. 1. Acute respiratory failure with hypoxemia,, present on admission, active -patient with a history of emphysema and is on home O2 at 2-4 liters/minute. Complained of increasing shortness of breath for 2 days developing blood tinged cough on admission. -patient presented with increasing hypoxemia progressive for 2 days requiring increase in oxygen level to 3.5, upon arrival respiratory rate is 30 heart rate is 116. -initial arterial blood gas reveals a pH of 7.49, pCO2 of 33.3, PO2 62, bicarb 33 with a base excess +9 on 32% FiO2. -multiple etiologies for hypoxemia including: COPD exacerbation-PF ratio 193.75, a gradient 109.8 with expected 86. Past history of smoking greater than 40 pack years. Pulmonary embolism-elevated D-dimer at 1609, CTA finds no central filling deficits and is negative for pulmonary embolism. Pneumonia- aspiration pneumonia with debris remaining in the esophagus on CT scan with history of CVA and dysphagia. Pneumonia-bacterial versus viral versus COVID-19, patient with elevated white count at 22 with increased neutrophils of 91.7%, increased procalcitonin an elevated CRP at 1.2 and patient initially afebrile upon arrival however temperature increased to 100.3 on admission to the floor. -Covid negative on admission, blood cultures have been negative. -04/12 the patient underwent intubation and resuscitation and is now stabilized in the ICU on the ventilator. He will be kept intubated until an EGD can be done to establish because of his esophageal abnormality, hematemesis and poor airway protection. EGD planned for later today. Will attempt sedation trials starting tomorrow. -appreciate respiratory therapy assistance with management. 2. Sepsis with respiratory compromise, present on admission, active. -patient with an elevated temperature upon arrival to the floor 100.3, and an elevated white count of 22.2 with increased neutrophils of 91.7 %, CRP of 1.2, procalcitonin 0.70. No extremity swelling or findings consistent with DVT. -the patient received sepsis bolus in the ER with 2100 cc of normal saline, blood cultures are drawn and he is started on Levaquin 750 mg IV. -Did improve with zosyn with decreasing leukocytosis and procalcitonin. -it is unclear whether the patient was in shock or if he was hypotensive secondary to sedating medications. He has improved slightly today and is no longer requiring pressors. He did clearly have a leukocytosis, elevated procalcitonin, and presentation consistent with pneumonia. CT abdomen did not show an intra-abdominal source. Suspect sepsis is secondary to aspiration pneumonia at this time, but hypotension is likely multifactorial given sepsis, acute blood loss anemia, and sedating medications. 3. Possible pneumonia secondary to aspiration, acute, present on admission, active. -patient with cough developing blood-tinged sputum on day of admission, complaints of fevers and chills. However blood tinged sputum may be as result of the GI bleed -pneumonia not evident on any of his chest x-rays or CT scans. -initially on Levaquin and Azithromycin -04/11 started on Zosyn -04/12 intubated until EGD performed. 4. Acute blood loss anemia secondary to likely upper GI bleed -3 units packed red blood cells given with follow-up hemoglobin 8.1. Has been stable between 7.4 and 8.1 for 24 hours. Decreased slightly to 7.0 today, will transfuse another 1 U PRBC today in anticipation of EGD. -continue octreotide and IV Protonix drip pending EGD. 5. . Esophageal stricture, chronic -the patient has a prior history of esophageal stricture undergoing balloon dilation 2 years ago. Tamie Licona tear X 2 09/24 at [facility]. -on CT scan, debris is identified in the esophagus increasing the risk for aspiration. -speech therapy recommends NPO until Modified Barium Swallow can be done, subsequently intubated 04/11 -Bleeding improved with Octreotide and Protonix drips. Hgb 8.1 after 3 units prbc, follow. -GS consult with Dr. Escobar 04/11 6. 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 -the patient resides at [facility] and states that he is nonambulatory. -he has right arm splint and right lower leg AFO. -PT and OT consult to evaluate and treat. -holding while intubated home regimen of gabapentin 600 mg 3 times daily and baclofen 20 mg 3 times daily. 7. Essential hypertension, chronic, stable. -patient with a blood pressure 152/89 upon arrival. Blood pressure improves to 126/68 upon arrival to floor. -holding while intubated home regimen of benazepril 40 mg daily and amlodipine 10 mg daily. 8. Hyperlipidemia, chronic, stable. -holding while intubated home regimen of atorvastatin 40 mg daily at bedtime. 9. Nicotine dependence, chronic, stable. -patient quit smoking in July of 2019, he has been using nicotine lozenges at [facility]. -ordered Nicoderm patch daily. 10. GI bleeding, acute - managemet as noted aabove. 11. Nutrition -Plan for PPN today. Midline was placed today for access. Will attempt to feed via NG tube if findings on EGD allow. I spent 30 minutes providing critical care management this patient. This excludes time spent in performing separately billed procedures. Isolation: Contact for MRSA in nares. VTE prophylaxis: Bilateral compression hose, Hold Enoxaparin due to GI bleeding IV fluid: Normal saline 100 cc/hour Diet: Heart healthy low-sodium dysphagia diet Code status: FULL CODE, patient's friend El Nielsen is his surrogate decision maker but he is currently in the ICU. Quality VTE Deep Vein Thrombosis/Pulmonary Embolism Present on Admission: No
--- NOTE | 2020-04-15 13:25 | DIET.PN ---
Dietary Progress Note Assessment: 65y M referred to nutrition as pt has been NPO on ventilator for 4d. Pt currently on NGT suction c upper GI bleed scheduled for EGD today to assess if pt can be fed via NG tube. Ventilator weaning trials may begin tomorrow. Hospitalist request for PPN feeding tonight at 1800. Pt at high nutritional risk c high risk for refeeding syndrome r/t pt at baseline has dysphagia c esophageal stricture s/p balloon dilation two years ago, MNA score of 5 (malnourished), current BMI 21.5 along c 4d NPO on vent. PPN on hand is 2L containing 1020kcals and 85g PRO c goal rate 83mL/h. Recc continuous PPN starting at half rate (41mL/h) r/t high refeeding risk, if pt tolerating feed after 12h, recc increase to goal. If Mg, K+, phos drop or BG increases keep feed rate steady, replete minerals, and increase to goal slowly. Once safe to do so, recc changing to enteral feeds to preserve gut function. HT: 187.9cm WT: 76kg UBW: none on file BMI: 21.5 Labs: hgb 7.0 L, Na 133 L, Mg 1.5 L, phos 2.6 WNL, K+ 4.1 WNL, BG 109-112 MNA: 5 malnourished Alen: 14 high risk for skin breakdown Nutrition Diagnosis: Interventions: Recc continuous PPN starting at half rate (41mL/h) r/t high refeeding risk, if pt tolerating feed after 12h, recc increase to goal. If Mg, K+, phos drop or BG increases keep feed rate steady, replete minerals, and increase to goal slowly. Diet Order: NPO EER: 1900kcal (25kcal/kg), 85g PRO (1.1g/kg) Monitoring/Evaluations: following daily for signs of refeeding, feed tolerance, reccs for EN via NGT when safe
--- NOTE | 2020-04-15 14:18 | PM.EVENT ---
Event Note Date Patient Seen: 04/15/20 Time Patient Seen: 14:18 Event Note: Patient is scheduled for planned EGD later this afternoon. He is currently intubated and sedated and unable to make decisions. He has expressed no previous desire for limited medical intervention, and consistent with prior documentation he has always requested full treatment. His designated surrogate decision maker, a friend, is currently admitted to an ICU and is unable to make decisions for the patient. He has no next of kin as best determined by care management, nursing, and physician staff. Consultation with the hospital ethics committee was obtained whom agreed that appropriate plan is to proceed with EGD with two attending consent, being myself and the consulting surgeon, Dr. Escobar.
[2020-04-15] MEDS: DEXTROSE 5%-0.9% NS 1,000 ML 50 ML IV (14:19)
[2020-04-15] MEDS: FLUCONAZOLE 200 MG/100 ML PIGGYBACK 100 MG IV (14:20)
--- NOTE | 2020-04-15 14:55 | PC.NURSE ---
Day Shift Note Pt continues on mechanical ventilator and sedated on fentanyl and versed (remains at 1 mcg/kg/hr and 9 mg/hr respectively). Flinches away from when doing oral care/manipulating RT tube, otherwise minimal response to voice/touch. SpO2 98-100%. 1 unit PRBCs infusing at this time without issue. EGD to be done today. Turning every 2 hours. NG tube to LIS. Ann in place and draining large amount clear yellow urine. Soft wrist restraints in place.
[2020-04-15] MEDS: LACTATED RINGERS 1,000 ML 42 ML IV (15:20)
--- NOTE | 2020-04-15 17:30 | PC.NURSE ---
Addendum entered by Madhavi Louise R.N. 04/15/20 19:43: Evening shift note: Pt positioned in bed on left side, with pillows under hands for comfort with restraints in place. Restraint orders renewed at 8 am this morning. Pt continues to be sedated on Fentanyl at 1mcg/kg/hr, Versed 9mg/hr. Pt continues on mechanical ventilator, flinches when doing oral care/manipulating ETT tube, with minimal response to voice or touch. SpO2 saturation is 98-100%, 1 unit PRBCs infused during dayshift, EGD was done today, biopsy samples send to lab. Q2 hour repositioning, NG tube removed during surgery, sarabia in place and draining clear, yellow urine. Bed low and locked, call light within reach, will continue to monitor. Addendum entered by Madhavi Louise R.N. 04/15/20 19:33: 1815 Pt returned from OR, VSS HR 82 BP 125/61 RR 28 O2 99% Temporal temp 99.5. Pt was reconnected to monitor, suctioned several times by RT, secretions were thick, cream colored from ETT tube, as well as the nasal secretions and oral secretions were bloody. Pt NG tube was removed in the OR and not replaced. Abdomen is very distended and firm. Repositioned pt supine with pillows under arms and legs. SCD's replaced over JAIMEE hose, with heel protectors inplace. Began infusing TPN per order, will continue to monitor. Original Note: 1715 Pt escorted to OR via bed, with 2 OR nurses, JOSELIN Moreno and RT Renita, VSS all infusing medications taken with pt. No further contact at this time.
--- NOTE | 2020-04-15 18:34 | SUR.PHASEI ---
Patient transported from OR back to room with 2 RNs, RT, and PAPER MACHINE OPERATOR. Patient placed back on ventilator in room by RT. Report given to receiving RN. PAtient left in stable condition with receiving RN and RT at bedside
--- NOTE | 2020-04-15 18:43 | SUR.OPER ---
Cultures ordered and sent two swabs and one sterile container with esophageal tissue to lab
[2020-04-15] MEDS: WATER IV (18:54)
[2020-04-15] MEDS: WATER FOR INJECTION STERILE IV (18:54)
[2020-04-15] MEDS: [UNRECOGNIZED DRUG - OTHER] IV (18:54)
[2020-04-15] MEDS: DEXTROSE 50% IV (18:54)
--- NOTE | 2020-04-15 19:17 | PM.OP.ENDO ---
Operative Date/Time/Diagnoses Date of procedure: 04/15/20 Time of procedure: 18:17 Pre-op diagnosis: upper GI bleed, thickened and narrowed esophagus on CT scan Post-op diagnosis: same (deep furrows in the esophagus from mid to distal with adherent slough) Procedure & Clinicians Study performed: EGD with biopsies of stomach and esophagus Same procedure as scheduled: Yes Indications: This is a 65 yo man with history of CVA and hemiparesis who was admitted four days ago with leukocytosis, anemia, and thickening of the esophagus on imaging. He was suspected to have neoplastic or infectious etiology. He was negative for TB. The patient was already intubated prior to the procedure and was brought to the OR sedated and intubated. Dr. Estrada of anesthesia was consulted to manage the patient's airway and sedation during the procedure. Surgeon: Kim Escobar Procedure Notes SCOAP/Timeout: Performed Procedure in detail: The patient was brought to the room positioned in left lateral decubitus position with all bony prominences padded. A bite block was positioned in the patient's mouth to protect the lips, teeth, and tongue for the procedure. A surgical time-out was performed and then the procedure was begun. Vitals were monitored throughout the procedure and remained stable. The lubricated gastroscope was passed through the bite block and across the tongue and into the esophagus without incident. The NGT was encountered, and was removed. Dark mucosal slough with clotted blood was adherent to the lancaster of the esophagus. A tubular view of the esophagus was maintained as the scope was advanced through the esophagus and into the stomach. The scope was advanced through the stomach and to the pylorus. The scope was gently popped through the pylorus and into the duodenal bulb. The scope was flexed and advanced into the second and third portions of the duodenum. The duodenum and duodenal bulb appeared normal. The scope was withdrawn into the stomach. The stomach showed evidence of chronic appearing endoscopic gastritis. Biopsies were taken. The scope was retroflexed and the gastric cardia was examined. There was mucosal slough and clotted blood sitting in the stomach. It was washed clean and no mucosal injuries were seen. The hiatus showed no gapping around the scope, no hiatal hernia. The scope was then straightened, and withdrawn into the esophagus. The Z-line was raw and thickened with stigmata of recent bleeding. Biopsies were taken. The distal esophagus appeared edematous and friable, but there was no appearance of web, ring, or focally stenotic mucosa. The scope was then withdrawn through the esophagus with a tubular view. There were deep trenches of friable mucosa with thin overlying slough from the mid esophagus to GE junction, consistent with severe esophagitis. Random biopsies were taken of these trench like areas. The scope was then withdrawn from the patient the procedure was concluded. The patient tolerated the procedure well and was transferred to the PACU in stable condition. Findings: gastritis, possible cancer and other findings (Grade 4 esophagitis) Specimen(s): other (Biopsy of gastric mucosa, GE junction, 35cm, and 30cm within the esophagus; mucosal slough sent for culture) Complications: none Impression: The deep ruts in the esophageal mucosa are most consistent with infectious esophagitis. Biopsies are pending. The distal esophagus is thickened with suspicion for possible cancer. Post-procedure Plan for aftercare: Return to ICU; do not replace NGT; continue empiric therapy with PPI, octreotide, and antimicrobials, repeat CBC and transfuse as appropriate, will follow up with biopsy results Follow up: as needed Disposition: PACU
[2020-04-15] MEDS: fentaNYL 1,000 MCG in DEXTROSE 5% IN WATER 230 ML 18.375 ML IV (20:42)
[2020-04-15 22:27] LABS: Hemoglobin 8.7 g/dL (13.5-17.5)
[2020-04-15 22:30] LABS: Hematocrit 25.7 % (41-53)
[2020-04-15] MEDS: ALBUTEROL 2.5 MG/3 ML NEB (ADULT) INH (23:41)
[2020-04-16] VITALS (24 sets, daily range): BP systolic 102–140; BP diastolic 53–75; PULSE 68–110; RESP 26–32; TEMP 36.9–38.5; O2SAT 95–100
[2020-04-16] MEDS: METOCLOPRAMIDE 10 MG/2 ML INJ 5 MG IV (00:12)
[2020-04-16] MEDS: MIDAZOLAM 50 MG in DEXTROSE 5% IN WATER 250 ML 40 ML IV ×2 (02:18→08:41)
[2020-04-16] MEDS: ALBUTEROL 2.5 MG/3 ML NEB (ADULT) INH ×6 (03:08→23:35)
[2020-04-16] MEDS: PIPERACILLIN-TAZO 3.375 GM/50 ML FROZ.PIGGY IV ×4 (04:35→22:14)
[2020-04-16 05:21] LABS: Add Manual Diff / Slide Review NO; Basophils Absolute Auto 0 /uL (0-100); Basophils Percent Auto 0.3 % (0-2); Eosinophils Absolute Auto 500 /uL (0-450); Eosinophils Percent Auto 3.1 % (2-4); Hematocrit 24.3 % (41-53); Hemoglobin 8.1 g/dL (13.5-17.5); Lymphocytes Absolute Auto 900 /uL (1100-4500); Lymphocytes Percent Auto 6.1 % (25-40); Mean Corpuscular HGB Conc 33.5 % (30-36); Mean Corpuscular Hemoglobin 29.6 PG (26-34); Mean Corpuscular Volume 88.4 fL (80-100); Monocytes Absolute Auto 1200 /uL (0-900); Monocytes Percent Auto 8.3 % (3-14); Neutrophils Absolute Auto 12100 /uL (1500-7000); Neutrophils Percent Auto 82.2 % (50-75); Platelet Count 315 X10^3/uL (150-400); Red Blood Cell Count 2.75 X10^6/uL (4.5-5.9); Red Cell Distribution Width 15.2 % (11.6-14.8); White Blood Cell Count 14.8 X10^3/uL (4.5-11.0)
[2020-04-16 05:35] LABS: Alanine Aminotransferase 16 IU/L (<50); Albumin 2.5 g/dL (3.5-5.0); Albumin Globulin Ratio 0.8 (1.0-2.8); Alkaline Phosphatase 52 U/L (38-126); Aspartate Aminotransferase 79 IU/L (17-59); BUN Creatinine Ratio 10.3 (6-22); Bilirubin Total 0.5 mg/dL (0.2-1.3); Bilirubin Unconjugated 0.7 mg/dL (0.0-1.1); Blood Urea Nitrogen 8 mg/dL (9-20); Carbon Dioxide 35 mmol/L (22-32); Chloride 96 mmol/L (98-107); Estimated Glomerular Filt Rate > 60.0 mL/min (>60); Globulin 3.2 g/dL (1.7-4.1); Glucose 107 mg/dL (80-110); HEMOLYSIS < 15 (0-50); Magnesium 1.9 mg/dL (1.6-2.3); Phosphorous 2.6 mg/dL (2.3-3.7); Potassium 4.1 mmol/L (3.4-5.1); Sodium 136 mmol/L (137-145); Total Protein 5.7 g/dL (6.3-8.2)
--- NOTE | 2020-04-16 06:29 | PC.NURSE ---
Wind Turbine Erector Note-Patient remains on ventilator, no change to settings from previous shifts, riding vent at rate of 28, SpO2 100%. Titrated Versed down to 8mg/hr at 0200, Fentanyl gtt remains at 1mcg/kg/min, patient flinches and bites on bite block during oral care, no other movement. Lt arm has been elevated and taut edema has decreased some. Abdomen is distended and firm, at midnight bowel sounds hypo and tympanic, at 0500 they were absent. Octreotide infusion continues, Protonix is now ordered IVP BID.
[2020-04-16] MEDS: OCTREOTIDE 500 MCG in SODIUM CHLORIDE 0.9% 100 ML 10.1 ML IV ×2 (08:41→18:09)
[2020-04-16] MEDS: SODIUM CHLORIDE 0.9% FLUSH 10 ML IV ×2 (08:42→20:58)
[2020-04-16] MEDS: PANTOPRAZOLE 40 MG VIAL IV ×2 (08:42→20:58)
--- NOTE | 2020-04-16 09:02 | P.PN_ITS ---
Subjective Subjective Date Patient Seen: 04/16/20 Time Patient Seen: 09:02 Interval history: No acute events overnight. Pt resting comfortably. Still sedated/intubated. Exam Vital Signs (past 8 hours): - 04/16/20 02:00 04/16/20 03:20 04/16/20 04:00 Temperature Pulse Rate 75 84 69 Respiratory Rate 28 H 28 H 28 H Blood Pressure 102/71 125/67 124/64 Pulse Oximetry 100 100 100 04/16/20 05:00 04/16/20 06:05 04/16/20 08:00 Temperature 98.4 F Pulse Rate 68 74 68 Respiratory Rate 28 H 28 H 26 H Blood Pressure 117/64 119/64 116/63 Pulse Oximetry 100 99 95 Fraction of Inspired Oxygen 30 Oxygen Delivery Method Mechanical Ventilation Oxygen Flow Rate 30 Narrative Exam Narrative: GENERAL: Intubated, sedated HENT: Normocephalic, atraumatic. CARDIOVASCULAR: Regular rate. No pedal edema. Normotensive on no pressors. RESPIRATORY: On vent; see report for settings; satting well GASTROINTESTINAL: Nondistended; soft; no grimace with exam MUSCULOSKELETAL: Right hemiparesis; right arm splint SKIN: Appropriate color for ethnicity. No other lesions, rashes, or wounds. Objective Labs Result Diagrams: 04/16/20 04:45 04/16/20 04:45 Labs: Laboratory Results - last 24 hr 04/11/20 04/15/20 04/15/20 17:48 12:07 22:13 WBC RBC Hgb 8.7 L Hct 25.7 L MCV MCH MCHC RDW Plt Count Neut % (Auto) Lymph % (Auto) [place] % (Auto) Eos % (Auto) Baso % (Auto) Neut # (Auto) Lymph # (Auto) [place] # (Auto) Eos # (Auto) Baso # (Auto) Sodium Potassium Chloride Carbon Dioxide BUN Creatinine Estimated GFR BUN/Creatinine Ratio Glucose Calcium Phosphorus Magnesium Total Bilirubin Conjugated Bilirubin Unconjugated Bilirubin AST ALT Alkaline Phosphatase Total Protein Albumin Globulin Albumin/Globulin Ratio Blood Type O Positive Antibody Screen Negative Crossmatch See Detail See Detail 04/16/20 04/16/20 04:45 04:45 WBC 14.8 H RBC 2.75 L Hgb 8.1 L Hct 24.3 L MCV 88.4 MCH 29.6 MCHC 33.5 RDW 15.2 H Plt Count 315 Neut % (Auto) 82.2 H Lymph % (Auto) 6.1 L Bailey % (Auto) 8.3 Eos % (Auto) 3.1 Baso % (Auto) 0.3 Neut # (Auto) 61129 H Lymph # (Auto) 900 L [place] # (Auto) 1200 H Eos # (Auto) 500 H Baso # (Auto) 0 Sodium 136 L Potassium 4.1 Chloride 96 L Carbon Dioxide 35 H BUN 8 L Creatinine 0.78 Estimated GFR > 60.0 BUN/Creatinine Ratio 10.3 Glucose 107 Calcium 8.0 L Phosphorus 2.6 Magnesium 1.9 Total Bilirubin 0.5 Conjugated Bilirubin 0.0 Unconjugated Bilirubin 0.7 AST 79 H ALT 16 Alkaline Phosphatase 52 Total Protein 5.7 L Albumin 2.5 L Globulin 3.2 Albumin/Globulin Ratio 0.8 L Blood Type Antibody Screen Crossmatch Assessment & Plan Assessment & Plan narrative: 65 yo man with complex medical history, here with anemia and leukocytosis of uknown etiology. CT scan shows thickened esophagus, possible neoplasm vs. infectious etiology. EGD showed severe grade 4 esophagitis, and thickening of the distal esophagus. Biopsy results are pending. Recommendations: Follow up on biopsy/culture results when available Transfuse as needed per hospitalist PPI 40mg IV bid or PPI gtt Octreotide gtt Serial hgb Agree with broad spectrum antibiotics and empiric anti fungal therapy empirically for esophagitis/candidiasis Avoid placing NGT unless absolutely necessary Consider weaning vent and extubation COVID-19 COVID-19 status: Negative Time Spent With Patient Time with patient: less than 15 minutes Quality VTE Deep Vein Thrombosis/Pulmonary Embolism Present on Admission: No
--- NOTE | 2020-04-16 10:40 | DIET.PN ---
Dietary Progress Note RD f/u pt day 5 on ventilator, infusing PPN at 41mL/h, pt tolerating and refeeding labs WNL, recc increasing to goal at 1800 (83mL/h). Per Dr. Shah note, pt has severe stage 4 esophagitis c deep tissue sloughing. Pt not to have NGT placed, pt on sedation vacation, once extubated to begin full liquid diet. Recc continuing PPN until pt can safely consume at least 50% estimated energy requirements via PO. We can taper down to cyclic PPN at that point. HT: 187.9cm WT: 76kg UBW: none on file BMI: 21.5 Labs: hgb 8.1 L, Na 136 L, Mg 1.9 WNL, phos 2.6 WNL, K+ 4.1 WNL, BG 107 MNA: 5 malnourished Alen: 14 high risk for skin breakdown Interventions: Recc continuous PPN (2L bag) @ goal (83mL/h) providing 100% PRO and 53% kcals, continue until pt tolerating full liquids providing half his EERs. Diet Order: NPO EER: 1900kcal (25kcal/kg), 85g PRO (1.1g/kg) Monitoring/Evaluations: following daily, labs, diet advancement
--- NOTE | 2020-04-16 11:29 | PM.PN.1 ---
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 Given presentation with acute hypoxic respiratory failure, and possible hemoptysis with upper lobe lesions he was ruled out for TB with a QuantiFERON test which was negative. He underwent EGD yesterday which showed severe esophagitis with esophageal stricture. There was also concern for distal esophageal malignancy. Cultures were taken and biopsies are pending. Patient remains intubated this morning, and we will start spontaneous breathing trials at this time and attempt extubation when ready. On admission he had a PICC line placed which has been used, unable to use this for TPN. Rather than a 2nd PICC line a peripheral midline was placed and PPN was started yesterday. From surgical perspective he would be able to start a full liquid diet depending on speech evaluation as well. Surgery is requesting no NG tube placement as well. He had a transfusion of 1 unit PRBC yesterday for hemoglobin of 7.0, this overcorrected to 8.7 yesterday evening and is 8.1 today. Patient's only current active fluid is PPN. Exam Vital Signs (past 8 hours): - 04/16/20 04:00 04/16/20 05:00 04/16/20 06:05 Temperature Pulse Rate 69 68 74 Respiratory Rate 28 H 28 H 28 H Blood Pressure 124/64 117/64 119/64 Pulse Oximetry 100 100 99 04/16/20 08:00 04/16/20 10:00 Temperature 98.4 F Pulse Rate 68 78 Respiratory Rate 26 H 28 H Blood Pressure 116/63 124/58 L Pulse Oximetry 95 100 Fraction of Inspired Oxygen 30 Oxygen Delivery Method Mechanical Ventilation Oxygen Flow Rate 0 Narrative Exam Narrative: GENERAL APPEARANCE: Well developed, well nourished male, intubated and sedated on Versed. Lines currently in place without any erythema or induration. SKIN: Inspection of the skin reveals no rashes, ulcerations or petechiae. HEENT: Normocephalic atraumatic, extraocular muscles are intact, oropharynx is clear and mucous membranes are moist, neck is supple without adenopathy NECK: Supple and symmetric. There was no thyroid enlargement, and no tenderness, or masses were felt. CHEST: Normal AP diameter and normal contour without any kyphoscoliosis. LUNGS: Auscultation of the lungs revealed slight rhonchi in the left middle lobe, otherwise mechanical breath sounds. CARDIOVASCULAR: There was a regular rate and rhythm without any murmurs, gallops, rubs. Peripheral pulses were 2+ and symmetric. ABDOMEN: Soft and nontender with normal bowel sounds. No ascites was noted. MUSCULOSKELETAL: There was no tenderness or effusions noted. Muscle strength and tone were normal. EXTREMITIES: No cyanosis, clubbing or edema. NEUROLOGIC: Sedated on Versed, not following commands, no eye opening. Objective Labs Result Diagrams: 04/16/20 04:45 04/16/20 04:45 Labs: Laboratory Results - last 24 hr 04/11/20 04/15/20 04/15/20 17:48 12:07 22:13 WBC RBC Hgb 8.7 L Hct 25.7 L MCV MCH MCHC RDW Plt Count Neut % (Auto) Lymph % (Auto) Childress % (Auto) Eos % (Auto) Baso % (Auto) Neut # (Auto) Lymph # (Auto) Childress # (Auto) Eos # (Auto) Baso # (Auto) Sodium Potassium Chloride Carbon Dioxide BUN Creatinine Estimated GFR BUN/Creatinine Ratio Glucose Calcium Phosphorus Magnesium Total Bilirubin Conjugated Bilirubin Unconjugated Bilirubin AST ALT Alkaline Phosphatase Total Protein Albumin Globulin Albumin/Globulin Ratio Blood Type O Positive Antibody Screen Negative Crossmatch See Detail See Detail 04/16/20 04/16/20 04:45 04:45 WBC 14.8 H RBC 2.75 L Hgb 8.1 L Hct 24.3 L MCV 88.4 MCH 29.6 MCHC 33.5 RDW 15.2 H Plt Count 315 Neut % (Auto) 82.2 H Lymph % (Auto) 6.1 L Childress % (Auto) 8.3 Eos % (Auto) 3.1 Baso % (Auto) 0.3 Neut # (Auto) 34126 H Lymph # (Auto) 900 L Childress # (Auto) 1200 H Eos # (Auto) 500 H Baso # (Auto) 0 Sodium 136 L Potassium 4.1 Chloride 96 L Carbon Dioxide 35 H BUN 8 L Creatinine 0.78 Estimated GFR > 60.0 BUN/Creatinine Ratio 10.3 Glucose 107 Calcium 8.0 L Phosphorus 2.6 Magnesium 1.9 Total Bilirubin 0.5 Conjugated Bilirubin 0.0 Unconjugated Bilirubin 0.7 AST 79 H ALT 16 Alkaline Phosphatase 52 Total Protein 5.7 L Albumin 2.5 L Globulin 3.2 Albumin/Globulin Ratio 0.8 L Blood Type Antibody Screen Crossmatch Assessment & Plan Assessment & Plan narrative: Eduardo King is a 65-year-old male with a 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 1. Acute respiratory failure with hypoxemia,, present on admission, active -patient with a history of emphysema and is on home O2 at 2-4 liters/minute. Complained of increasing shortness of breath for 2 days developing blood tinged cough on admission. -patient presented with increasing hypoxemia progressive for 2 days requiring increase in oxygen level to 3.5, upon arrival respiratory rate is 30 heart rate is 116. -initial arterial blood gas reveals a pH of 7.49, pCO2 of 33.3, PO2 62, bicarb 33 with a base excess +9 on 32% FiO2. -multiple etiologies for hypoxemia including: COPD exacerbation-PF ratio 193.75, a gradient 109.8 with expected 86. Past history of smoking greater than 40 pack years. Pulmonary embolism-elevated D-dimer at 1609, CTA finds no central filling deficits and is negative for pulmonary embolism. Pneumonia- aspiration pneumonia with debris remaining in the esophagus on CT scan with history of CVA and dysphagia. Pneumonia-bacterial versus viral versus COVID-19, patient with elevated white count at 22 with increased neutrophils of 91.7%, increased procalcitonin an elevated CRP at 1.2 and patient initially afebrile upon arrival however temperature increased to 100.3 on admission to the floor. -Covid negative on admission, blood cultures have been negative. -04/12 the patient underwent intubation and resuscitation. Remained intubated until EGD performed. Will now work on extubation with sedation trials and breathing trials if able. -appreciate respiratory therapy assistance with management. 2. Sepsis with respiratory compromise, present on admission, active. -patient with an elevated temperature upon arrival to the floor 100.3, and an elevated white count of 22.2 with increased neutrophils of 91.7 %, CRP of 1.2, procalcitonin 0.70. No extremity swelling or findings consistent with DVT. -the patient received sepsis bolus in the ER with 2100 cc of normal saline, blood cultures are drawn and he is started on Levaquin 750 mg IV. -Did improve with zosyn with decreasing leukocytosis and procalcitonin. -it is unclear whether the patient was in shock or if he was hypotensive secondary to sedating medications. He has improved slightly today and is no longer requiring pressors. He did clearly have a leukocytosis, elevated procalcitonin, and presentation consistent with pneumonia. CT abdomen did not show an intra-abdominal source. Suspect sepsis is secondary to aspiration pneumonia at this time, but hypotension is likely multifactorial given sepsis, acute blood loss anemia, and sedating medications. 3. Possible pneumonia secondary to aspiration, acute, present on admission, active. -patient with cough developing blood-tinged sputum on day of admission, complaints of fevers and chills. However blood tinged sputum likely the result of esophagitis. -pneumonia not evident on any of his chest x-rays or CT scans. -initially on Levaquin and Azithromycin, 04/11 started on Zosyn which he remains on. -/ intubated, now S/p EGD and working towards extubation with sedation vacations starting today. 4. Acute blood loss anemia secondary to likely upper GI bleed -s/p 4 U total PRBC, most recently yesterday. Overcorrected from 7.0 to 8.7 yesterday PM, 8.1 this AM. continue to follow. -continue octreotide and IV Protonix drip per surgical recommendations -He underwent EGD yesterday which showed severe esophagitis with esophageal stricture. There was also concern for distal esophageal malignancy. Cultures were taken and biopsies are pending. 5. . Esophageal stricture, chronic -the patient has a prior history of esophageal stricture undergoing balloon dilation 2 years ago. Tamie Licona tear X 2 09/24 at [facility]. -on CT scan, debris is identified in the esophagus increasing the risk for aspiration. -speech therapy recommends NPO until Modified Barium Swallow can be done, subsequently intubated 6/6 -Bleeding improved with Octreotide and Protonix drips. - consult with Dr. Escobar. EGD 04/15 after negative quant gold evaluation. EGD consistent with esophageal stricture and severe esophagitis. Cultures and biopsies pending. There was also concern for distal esophageal malignancy. 6. 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 -the patient resides at [facility] and states that he is nonambulatory. -he has right arm splint and right lower leg AFO. -PT and OT consult to evaluate and treat. -holding while intubated home regimen of gabapentin 600 mg 3 times daily and baclofen 20 mg 3 times daily. 7. Essential hypertension, chronic, stable. -patient with a blood pressure 152/89 upon arrival. Blood pressure improves to 126/68 upon arrival to floor. -holding while intubated home regimen of benazepril 40 mg daily and amlodipine 10 mg daily. 8. Hyperlipidemia, chronic, stable. -holding while intubated home regimen of atorvastatin 40 mg daily at bedtime. 9. Nicotine dependence, chronic, stable. -patient quit smoking in July of 2019, he has been using nicotine lozenges at [facility]. -ordered Nicoderm patch daily. 10. Nutrition -Continue PPN until tolerating adequate dietary intake. 11. esophagitis - See above 12. gastritis - seen on EGD I spent 30 minutes providing critical care management this patient. This excludes time spent in performing separately billed procedures. Isolation: Contact for MRSA in nares. VTE prophylaxis: Bilateral compression hose, Hold Enoxaparin due to GI bleeding IV fluid: Normal saline 100 cc/hour Diet: Heart healthy low-sodium dysphagia diet Code status: FULL CODE, patient's friend El Nielsen is his surrogate decision maker but he is currently in the ICU. Quality VTE Deep Vein Thrombosis/Pulmonary Embolism Present on Admission: No
[2020-04-16] MEDS: BISACODYL 10 MG SUPP PR (12:20)
--- NOTE | 2020-04-16 13:43 | CM.DPNOTE ---
Addendum entered by JEAN PAUL Peter 04/16/20 13:47: In addition: Laila said patient had not been at [facility] for even 24 hrs before being admitted to the hospital. Original Note: DCP Cont Placed call to Josephine[facility] asked for review- April explained they would be able to accommodate patient only if/when he were able to eat 50-70% of his meals. Placed call to Laila at [facility]; she confirmed they would take patient home once appropriate to do so (after rehab) and she provided number for additional NOK, Cristina (Laila unsure family relation, dtr vs sister). Cristina: [phone]. Placed call to [facility] and had to LM requesting CB. JW
[2020-04-16] MEDS: FLUCONAZOLE 200 MG/100 ML PIGGYBACK 100 MG IV (14:31)
--- NOTE | 2020-04-16 14:45 | PC.NURSE ---
Day Shift Note Sedation vacation started at 0845, fentanyl and versed turned off. Sedation has remained off since then with minimal responsiveness noted from pt. Does open eyes with position changes and with vigorous sternal rub, does not track with eyes. Moving extremities up toward ET tube this afternoon with position changes. Bilateral wrist restraints remain in place. Continues on vent, no changes in settings. White/clear secretions being suctioned intermittently via ET tube. Ann catheter in place and draining clear yellow urine. Abdomen distended, BTS very decreased. Ducolax suppository administered this afternoon, flatus noted but no BM at this time. Pt winces and grimaces with palpation to stomach. Plan is to attempt breathing trial when pt able to participate.
[2020-04-16] MEDS: [UNRECOGNIZED DRUG - REMARK] 84.833 ML IV (18:05)
[2020-04-16] MEDS: MIDAZOLAM 50 MG in DEXTROSE 5% IN WATER 250 ML 20 ML IV (18:32)
--- NOTE | 2020-04-16 18:34 | PC.NURSE ---
Addendum entered by Madhavi Louise R.N. 04/16/20 23:23: 2150 pt noted to have an elevated temp of 101.3, Dr. Wilson updated on pt status, CXR ordered and performed, not new orders, cooling measures with ice packs auxiliary and cool cloth on pt head, will continue to monitor. 2229 Pt had a BM, while changing pt with [employer] assistance pt became very agitated choking, coughing, biting on vent, RT was call and arrived at bedside, pt was extremely awake, RT suctioned pt and suggested that pt is too awake and fighting vent. Gave pt 2mg Ativan, with no help, titrated both Fentanyl and Versed to original settings of Versed at 8mg/hr and Fentanyl at 18.4 mL/hr. Finished cleaning pt and changing linens, pt is finally calmer. Pt prefers to have Jazz station on tv, seems to help keep him calm. Bed low and locked, vent settings same, report given to on coming noc shift nurse Natalee, no further pt contact. Addendum entered by Madhavi Louise R.N. 04/16/20 19:12: 1900 RT came in and put pt back on vent, setting FiO2 30% PEEP 5 RR 38 TV 350, left room without telling this nurse what was done. Pt tolerated well, will continue to monitor. Original Note: Evening shift note: Pt resting in bed, sedations vacation started during day shift at 0845, Fentanyl and Versed turned off, minimal responsiveness, opens eyes but does not track. Wrist restraints remain in place, order renewed during dayshift at 8am. Continues on vent, no changes in settings, cream colored sectrections suctioned intermittently, sarabia catheter remains in place, draining clear yellow urine. Abdomen is distended, bowel sounds hypoactive, some flatus present, Dr. Escobar aware of abdomen and feels that this is not changed from when she saw him on monday. Pt was administered a suppository this afternoon, no BM. Will continue to monitor. 1800 Pt opened eyes and was able to track this nurse, Dr. Lucas notified and at bedside. Pt able to open and close eyes when prompted, not able to squeeze hand or wiggle toes. Dr Lucas gave orders to decrease sedation gtts by half (see MAR), and ok to start breathing trial. 1820 RT Tony at bedside, breathing trial started at 1825 will trial for 35 minutes, pt tolerating well, RR 30 HR 100, will continue to monitor.
--- NOTE | 2020-04-16 21:34 | DI.RAD.S_ITS ---
PROCEDURE: XR CHEST 1V INDICATIONS: elevated temperature TECHNIQUE: One view of the chest was acquired. COMPARISON: [facility], CR, XR CHEST 1V, 04/14/2020, 14:48. FINDINGS: Surgical changes and devices: ET tube, PICC line in satisfactory position Lungs and pleura: Left upper lobe mass, diffuse interstitial change, as before. No pleural effusions or pneumothorax. Mediastinum: Mediastinal contours appear normal. Heart size is normal. Bones and chest wall: No suspicious bony lesions. Overlying soft tissues appear unremarkable. IMPRESSION: Lines and tubes in satisfactory position. Left upper lobe lung mass. Chronic increased interstitial lung markings. Dictated by: Elpidio Olivares M.D. on 04/16/2020 at 21:54 Approved by: Elpidio Olivares M.D. on 04/16/2020 at 21:55
[2020-04-16] MEDS: fentaNYL 1,000 MCG in DEXTROSE 5% IN WATER 230 ML 9.188 ML IV (22:12)
[2020-04-16] MEDS: LORazepam 2 MG/ML INJ IV (22:55)
[2020-04-17] VITALS (23 sets, daily range): BP systolic 108–154; BP diastolic 40–75; PULSE 28–105; RESP 19–29; TEMP 36.7–38.2; O2SAT 92–100
[2020-04-17] MEDS: MIDAZOLAM 50 MG in DEXTROSE 5% IN WATER 250 ML 40 ML IV ×2 (02:56→11:15)
[2020-04-17] MEDS: OCTREOTIDE 500 MCG in SODIUM CHLORIDE 0.9% 100 ML 10.1 ML IV ×2 (04:09→14:52)
[2020-04-17] MEDS: ALBUTEROL 2.5 MG/3 ML NEB (ADULT) INH ×6 (04:14→23:07)
[2020-04-17] MEDS: PIPERACILLIN-TAZO 3.375 GM/50 ML FROZ.PIGGY IV ×4 (04:45→23:10)
[2020-04-17] MEDS: SODIUM CHLORIDE 0.9% FLUSH 10 ML IV ×4 (04:57→21:35)
--- NOTE | 2020-04-17 05:54 | PC.NURSE ---
Pt. remains vented on sedation of Versed and Fentanyl. Pt. does open his eyes osbaldo. when turned and suctioned. VSS, afebrile. Lungs decreased throughout with persistent crackles on the right base. Abd. distended, hypoactive, tympanic and incontinent of mod. brown liquid odiferous stool. Bilateral wrist restraints on. Continue to monitor.
[2020-04-17 06:02] LABS: Add Manual Diff / Slide Review NO; Basophils Absolute Auto 100 /uL (0-100); Basophils Percent Auto 0.5 % (0-2); Eosinophils Absolute Auto 400 /uL (0-450); Eosinophils Percent Auto 2.5 % (2-4); Hematocrit 24.5 % (41-53); Hemoglobin 8.2 g/dL (13.5-17.5); Lymphocytes Absolute Auto 900 /uL (1100-4500); Mean Corpuscular HGB Conc 33.4 % (30-36); Mean Corpuscular Hemoglobin 29.4 PG (26-34); Mean Corpuscular Volume 88.1 fL (80-100); Monocytes Absolute Auto 1300 /uL (0-900); Monocytes Percent Auto 8.6 % (3-14); Neutrophils Absolute Auto 12300 /uL (1500-7000); Neutrophils Percent Auto 82.4 % (50-75); Platelet Count 395 X10^3/uL (150-400); Red Blood Cell Count 2.79 X10^6/uL (4.5-5.9); Red Cell Distribution Width 14.9 % (11.6-14.8); White Blood Cell Count 14.9 X10^3/uL (4.5-11.0)
[2020-04-17 06:09] LABS: Alanine Aminotransferase 18 IU/L (<50); Albumin 2.5 g/dL (3.5-5.0); Albumin Globulin Ratio 0.8 (1.0-2.8); Alkaline Phosphatase 55 U/L (38-126); Aspartate Aminotransferase 76 IU/L (17-59); BUN Creatinine Ratio 13.3 (6-22); Bilirubin Total 0.5 mg/dL (0.2-1.3); Bilirubin Unconjugated 0.5 mg/dL (0.0-1.1); Blood Urea Nitrogen 10 mg/dL (9-20); Calcium 8.1 mg/dL (8.4-10.2); Carbon Dioxide 33 mmol/L (22-32); Chloride 94 mmol/L (98-107); Estimated Glomerular Filt Rate > 60.0 mL/min (>60); Globulin 3.3 g/dL (1.7-4.1); Glucose 147 mg/dL (80-110); HEMOLYSIS < 15 (0-50); Magnesium 1.6 mg/dL (1.6-2.3); Phosphorous 2.5 mg/dL (2.3-3.7); Potassium 4.1 mmol/L (3.4-5.1); Sodium 134 mmol/L (137-145); Total Protein 5.8 g/dL (6.3-8.2)
--- NOTE | 2020-04-17 08:01 | P.PN_ITS ---
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 Given presentation with acute hypoxic respiratory failure, and possible hemoptysis with upper lobe lesions he was ruled out for TB with a QuantiFERON test which was negative. He underwent EGD yesterday which showed severe esophagitis with esophageal stricture. There was also concern for distal esophageal malignancy. Cultures were taken and biopsies are pending but current growth is E. Coli and Staph aureus, it is unclear if these are pathologic. Patient was on sedation vacation until approx 6 pm yesterday when he started to become more alert. He was able to follow some commands and open his eyes to command. He tolerated about a half an hour of a pressure support trial and was placed back on sedation. Currently doing another sedation vacation and possible breathing trial later today. Exam Vital Signs (past 8 hours): - 04/17/20 02:00 04/17/20 04:00 04/17/20 06:00 Temperature 98.1 F Pulse Rate 94 H 87 92 H Respiratory Rate 28 H 28 H 28 H Blood Pressure 108/57 L 115/59 L Pulse Oximetry 100 100 Fraction of Inspired Oxygen 30 Oxygen Delivery Method Mechanical Ventilation Oxygen Flow Rate 30 Narrative Exam Narrative: GENERAL APPEARANCE: Well developed, well nourished male, intubated and sedated on Versed. Lines currently in place without any erythema or induration. SKIN: Inspection of the skin reveals no rashes, ulcerations or petechiae. HEENT: Normocephalic atraumatic, extraocular muscles are intact, oropharynx is clear and mucous membranes are moist, neck is supple without adenopathy NECK: Supple and symmetric. There was no thyroid enlargement, and no tenderness, or masses were felt. CHEST: Normal AP diameter and normal contour without any kyphoscoliosis. LUNGS: Auscultation of the lungs revealed slight rhonchi in the left middle lobe, otherwise mechanical breath sounds. CARDIOVASCULAR: There was a regular rate and rhythm without any murmurs, gallops, rubs. Peripheral pulses were 2+ and symmetric. ABDOMEN: Soft and nontender with normal bowel sounds. No ascites was noted. MUSCULOSKELETAL: There was no tenderness or effusions noted. Muscle strength and tone were normal. EXTREMITIES: No cyanosis, clubbing or edema. NEUROLOGIC: Sedated on Versed, not following commands, no eye opening. Objective Labs Result Diagrams: 04/17/20 05:45 04/17/20 05:45 Labs: Laboratory Results - last 24 hr 04/15/20 04/17/20 04/17/20 12:07 05:45 05:45 WBC 14.9 H RBC 2.79 L Hgb 8.2 L Hct 24.5 L MCV 88.1 MCH 29.4 MCHC 33.4 RDW 14.9 H Plt Count 395 Neut % (Auto) 82.4 H Lymph % (Auto) 6.0 L [place] % (Auto) 8.6 Eos % (Auto) 2.5 Baso % (Auto) 0.5 Neut # (Auto) 30732 H Lymph # (Auto) 900 L [place] # (Auto) 1300 H Eos # (Auto) 400 Baso # (Auto) 100 Sodium 134 L Potassium 4.1 Chloride 94 L Carbon Dioxide 33 H BUN 10 Creatinine 0.75 Estimated GFR > 60.0 BUN/Creatinine Ratio 13.3 Glucose 147 H Calcium 8.1 L Phosphorus 2.5 Magnesium 1.6 Total Bilirubin 0.5 Conjugated Bilirubin 0.0 Unconjugated Bilirubin 0.5 AST 76 H ALT 18 Alkaline Phosphatase 55 Total Protein 5.8 L Albumin 2.5 L Globulin 3.3 Albumin/Globulin Ratio 0.8 L Crossmatch See Detail Assessment & Plan Assessment & Plan narrative: Eduardo King is a 65-year-old male with a 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 1. Acute respiratory failure with hypoxemia,, present on admission, active but improved. -patient with a history of emphysema and is on home O2 at 2-4 liters/minute. Complained of increasing shortness of breath for 2 days developing blood tinged cough on admission. -patient presented with increasing hypoxemia progressive for 2 days requiring increase in oxygen level to 3.5, upon arrival respiratory rate is 30 heart rate is 116. -initial arterial blood gas reveals a pH of 7.49, pCO2 of 33.3, PO2 62, bicarb 33 with a base excess +9 on 32% FiO2. -multiple etiologies for hypoxemia including: COPD exacerbation-PF ratio 193.75, a gradient 109.8 with expected 86. Past history of smoking greater than 40 pack years. Pulmonary embolism-elevated D-dimer at 1609, CTA finds no central filling deficits and is negative for pulmonary embolism. Pneumonia- aspiration pneumonia with debris remaining in the esophagus on CT scan with history of CVA and dysphagia. Pneumonia-bacterial versus viral versus COVID-19, patient with elevated white count at 22 with increased neutrophils of 91.7%, increased procalcitonin an elevated CRP at 1.2 and patient initially afebrile upon arrival however temperature increased to 100.3 on admission to the floor. -Covid negative on admission, blood cultures have been negative. -04/12 the patient underwent intubation and resuscitation. Remained intubated until EGD performed. Will now work on extubation with sedation trials and br eathing trials if able. On 04/16 patient was on sedation vacation for close to 8 hours before finally becoming alert, he was then able to tolerate about 30 minute breathing trial. Will continue spontaneous breathing trials today after sedation vacation with possible extubation. -appreciate respiratory therapy assistance with management. 2. Sepsis with respiratory compromise, present on admission, active. -patient with an elevated temperature upon arrival to the floor 100.3, and an elevated white count of 22.2 with increased neutrophils of 91.7 %, CRP of 1.2, procalcitonin 0.70. No extremity swelling or findings consistent with DVT. -the patient received sepsis bolus in the ER with 2100 cc of normal saline, blood cultures are drawn and he is started on Levaquin 750 mg IV. -Did improve with zosyn with decreasing leukocytosis and procalcitonin. -it is unclear whether the patient was in shock or if he was hypotensive secondary to sedating medications. He has improved slightly today and is no longer requiring pressors. He did clearly have a leukocytosis, elevated procalcitonin, and presentation consistent with pneumonia. CT abdomen did not show an intra-abdominal source. Suspect sepsis is secondary to aspiration pneumonia at this time, but hypotension is likely multifactorial given sepsis, acute blood loss anemia, and sedating medications. 3. Possible pneumonia secondary to aspiration, acute, present on admission, active. -patient with cough developing blood-tinged sputum on day of admission, complaints of fevers and chills. However blood tinged sputum likely the result of esophagitis. -pneumonia not evident on any of his chest x-rays or CT scans. -initially on Levaquin and Azithromycin, 04/11 started on Zosyn which he remains on. -04/12 intubated, now S/p EGD and working towards extubation with sedation vacations starting today. 4. Acute blood loss anemia secondary to likely upper GI bleed -s/p 4 U total PRBC, most recently 04/15 1 U. continue to follow. -continue octreotide and IV Protonix drip per surgical recommendations. Hg stable around 8 currently. -He underwent EGD yesterday which showed severe esophagitis with esophageal stricture. There was also concern for distal esophageal malignancy. Cultures were taken and biopsies are pending. 5. . Esophageal stricture, chronic -the patient has a prior history of esophageal stricture undergoing balloon dila tion 2 years ago. Tamie Licona tear X 2 09/24 at [facility]. -on CT scan, debris is identified in the esophagus increasing the risk for aspiration. -speech therapy recommends NPO until Modified Barium Swallow can be done, subsequently intubated 04/11 -Bleeding improved with Octreotide and Protonix drips. - consult with Dr. Escobar. EGD 04/15 after negative quant gold evaluation. EGD consistent with esophageal stricture and severe esophagitis. Cultures and biopsies pending. There was also concern for distal esophageal malignancy. 6. 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 -the patient resides at [facility] and states that he is nonambulatory. -he has right arm splint and right lower leg AFO. -PT and OT consult to evaluate and treat. -holding while intubated home regimen of gabapentin 600 mg 3 times daily and baclofen 20 mg 3 times daily. 7. Essential hypertension, chronic, stable. -patient with a blood pressure 152/89 upon arrival. Blood pressure improves to 126/68 upon arrival to floor. -holding while intubated home regimen of benazepril 40 mg daily and amlodipine 10 mg daily. 8. Hyperlipidemia, chronic, stable. -holding while intubated home regimen of atorvastatin 40 mg daily at bedtime. 9. Nicotine dependence, chronic, stable. -patient quit smoking in July of 2019, he has been using nicotine lozenges at [facility]. -ordered Nicoderm patch daily. 10. Nutrition -Continue PPN until tolerating adequate dietary intake. Will need speech evaluation upon exstubation. 11. esophagitis - See above 12. gastritis - seen on EGD I spent 30 minutes providing critical care management this patient. This excludes time spent in performing separately billed procedures. Isolation: Contact for MRSA in nares. VTE prophylaxis: Bilateral compression hose, Hold Enoxaparin due to GI bleeding IV fluid: on PPN Diet: Heart healthy low-sodium dysphagia diet Code status: FULL CODE, patient's friend El Nielsen is his surrogate decision maker but he is currently in the ICU at an OSH. Quality VTE Deep Vein Thrombosis/Pulmonary Embolism Present on Admission: No
[2020-04-17] MEDS: PANTOPRAZOLE 40 MG VIAL IV ×2 (08:23→21:34)
--- NOTE | 2020-04-17 10:56 | PC.NURSE ---
Addendum entered by Beth Agustin R.N. 04/17/20 15:00: Pt attempt with sedation vacation, remains quite sedate, update with Dr Lucas, and would like to switch patient to propofol, orders obtained. We have continued to turn patient side to side this shift to allow offloading of pressure, area to coccyx close to breakdown, topical barrier cream, and waffle pillow. Midline and Dual PICC. TPN infusing, Midazelam @ 2.5, fentanyl @ 18.4. Continue to monitor for weaning off vent. Original Note: Am shift Pt vented with Fent and Versed for sedation, wakes easily for care, unable to track with eyes. Cleaned Pt up and given bedbath, incont of small BM. TPN infusing @ 84. Soft wrist restraints to UE. Order renewed.
[2020-04-17] MEDS: fentaNYL 1,000 MCG in DEXTROSE 5% IN WATER 230 ML 18.4 ML IV (12:13)
--- NOTE | 2020-04-17 12:40 | P.PN_ITS ---
Subjective Subjective Date Patient Seen: 04/17/20 Time Patient Seen: 12:40 Interval history: No acute events overnight. Pt passing gas and stool. Not extubatable yesterday due to mental status. Exam Vital Signs (past 8 hours): - 04/17/20 06:00 04/17/20 07:45 04/17/20 08:00 Temperature 99.4 F Pulse Rate 92 H 85 90 Respiratory Rate 28 H 28 H 28 H Blood Pressure 115/59 L 131/60 Pulse Oximetry 100 97 100 04/17/20 10:00 04/17/20 10:28 04/17/20 12:00 Temperature 98.9 F Pulse Rate 82 80 Respiratory Rate 29 H 27 H Blood Pressure 119/65 154/70 H Pulse Oximetry 100 100 100 Fraction of Inspired Oxygen 30 Oxygen Delivery Method Mechanical Ventilation Oxygen Flow Rate 30 Narrative Exam Narrative: GENERAL: Intubated, sedated HENT: Normocephalic, atraumatic. CARDIOVASCULAR: Regular rate. No pedal edema. Normotensive on no pressors. RESPIRATORY: On vent; see report for settings; satting well GASTROINTESTINAL: rounded, soft; nondistended no facial grimace with exam; t enses abdominal muscles on palpation MUSCULOSKELETAL: Right hemiparesis; right arm splint SKIN: Appropriate color for ethnicity. No other lesions, rashes, or wounds. Objective Labs Result Diagrams: 04/17/20 05:45 04/17/20 05:45 Labs: Laboratory Results - last 24 hr 04/15/20 04/17/20 04/17/20 12:07 05:45 05:45 WBC 14.9 H RBC 2.79 L Hgb 8.2 L Hct 24.5 L MCV 88.1 MCH 29.4 MCHC 33.4 RDW 14.9 H Plt Count 395 Neut % (Auto) 82.4 H Lymph % (Auto) 6.0 L [place] % (Auto) 8.6 Eos % (Auto) 2.5 Baso % (Auto) 0.5 Neut # (Auto) 07655 H Lymph # (Auto) 900 L [place] # (Auto) 1300 H Eos # (Auto) 400 Baso # (Auto) 100 Sodium 134 L Potassium 4.1 Chloride 94 L Carbon Dioxide 33 H BUN 10 Creatinine 0.75 Estimated GFR > 60.0 BUN/Creatinine Ratio 13.3 Glucose 147 H Calcium 8.1 L Phosphorus 2.5 Magnesium 1.6 Total Bilirubin 0.5 Conjugated Bilirubin 0.0 Unconjugated Bilirubin 0.5 AST 76 H ALT 18 Alkaline Phosphatase 55 Total Protein 5.8 L Albumin 2.5 L Globulin 3.3 Albumin/Globulin Ratio 0.8 L Crossmatch See Detail Assessment & Plan Assessment & Plan narrative: 65 yo man with complex medical history, here with anemia and leukocytosis of uknown etiology. CT scan shows thickened esophagus, possible neoplasm vs. infectious etiology. EGD performed two days ago showed severe grade 4 esophagitis, and thickening of the distal esophagus. Biopsy results are pending. Recommendations: Follow up on biopsy/culture results when available Transfuse as needed per hospitalist PPI 40mg IV bid or PPI gtt Octreotide gtt Serial hgb Agree with broad spectrum antibiotics and empiric anti fungal therapy empirically for esophagitis/candidiasis Avoid placing NGT unless absolutely necessary Consider weaning vent and extubation COVID-19 COVID-19 status: Negative Time Spent With Patient Time with patient: less than 15 minutes Quality VTE Deep Vein Thrombosis/Pulmonary Embolism Present on Admission: No
[2020-04-17] MEDS: FLUCONAZOLE 200 MG/100 ML PIGGYBACK 100 MG IV (14:42)
[2020-04-17] MEDS: propofoL 1,000 MG/100 ML VIAL 2.313 MG IV (16:58)
[2020-04-17] MEDS: [UNRECOGNIZED DRUG - REMARK] 84.833 ML IV (17:49)
[2020-04-18] VITALS (32 sets, daily range): BP systolic 105–212; BP diastolic 55–100; PULSE 90–150; RESP 15–41; TEMP 37.4–38.2; O2SAT 98–100
[2020-04-18] MEDS: fentaNYL 1,000 MCG in DEXTROSE 5% IN WATER 230 ML 18.4 ML IV (00:28)
[2020-04-18] MEDS: OCTREOTIDE 500 MCG in SODIUM CHLORIDE 0.9% 100 ML 10.1 ML IV (01:29)
[2020-04-18] MEDS: ALBUTEROL 2.5 MG/3 ML NEB (ADULT) INH ×7 (02:37→23:25)
[2020-04-18] MEDS: PIPERACILLIN-TAZO 3.375 GM/50 ML FROZ.PIGGY IV ×4 (04:19→22:14)
--- NOTE | 2020-04-18 07:49 | P.PN_ITS ---
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 Given presentation with acute hypoxic respiratory failure, and possible hemoptysis with upper lobe lesions he was ruled out for TB with a QuantiFERON test which was negative. He underwent EGD yesterday which showed severe esophagitis with esophageal stricture. There was also concern for distal esophageal malignancy. Cultures were taken and biopsies are pending but current growth is E. Coli, Staph aureus, and Achromobacter sp. It is unclear if these are pathologic. Patient will have sedation vacation and another weaning trial this morning. Exam Vital Signs (past 8 hours): - 04/18/20 00:20 04/18/20 00:34 04/18/20 00:50 Temperature 99.7 F H Pulse Rate 106 H Respiratory Rate 41 H 30 H Blood Pressure 169/77 H 148/68 H Pulse Oximetry 98 04/18/20 01:00 04/18/20 02:34 04/18/20 03:33 Temperature Pulse Rate 104 H 102 H 105 H Respiratory Rate 28 H 28 H 28 H Blood Pressure 105/69 111/64 114/56 L Pulse Oximetry 100 100 100 04/18/20 04:00 04/18/20 05:30 04/18/20 06:38 Temperature 99.8 F H Pulse Rate 104 H 99 H 99 H Respiratory Rate 28 H 28 H 28 H Blood Pressure 109/62 112/62 143/68 H Pulse Oximetry 100 100 99 Fraction of Inspired Oxygen 30 Oxygen Delivery Method Mechanical Ventilation Oxygen Flow Rate 30 Narrative Exam Narrative: General: Sedated male intubated on vent. Lines currently in place without any erythema or induration. 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 1. Acute on chronic respiratory failure with hypoxemia,, present on admission, active. -patient with a history of emphysema and is on home O2 at 2-4 liters/minute. Complained of increasing shortness of breath for 2 days developing blood tinged cough on admission. -patient presented with increasing hypoxemia progressive for 2 days requiring increase in oxygen level to 3.5, upon arrival respiratory rate is 30 heart rate is 116. -initial arterial blood gas reveals a pH of 7.49, pCO2 of 33.3, PO2 62, bicarb 33 with a base excess +9 on 32% FiO2. -multiple etiologies for hypoxemia including: COPD exacerbation-PF ratio 193.75, a gradient 109.8 with expected 86. Past history of smoking greater than 40 pack years. Pulmonary embolism-elevated D-dimer at 1609, CTA finds no central filling deficits and is negative for pulmonary embolism. Pneumonia- aspiration pneumonia with debris remaining in the esophagus on CT scan with history of CVA and dysphagia. an elevated CRP at 1.2 and patient initially afebrile upon arrival however temperature increased to 100.3 on admission to the floor. -Covid negative on admission, blood cultures have been negative. -04/12 the patient underwent intubation and resuscitation. Remained intubated until EGD performed. Will now work on extubation with sedation trials and breathing trials if able. On 04/16 patient was on sedation vacation for close to 8 hours before finally becoming alert, he was then able to tolerate about 30 minute breathing trial. On 04/17 patient had sedation vacation late in the day but inadequate weaning trial. Will continue spontaneous breathing trials today after sedation vacation, assess RSBI, with possible extubation for RSBA < 105. -appreciate respiratory therapy assistance with management. 2. Sepsis with respiratory compromise, present on admission, active. -patient with an elevated temperature upon arrival to the floor 100.3, and an elevated white count of 22.2 with increased neutrophils of 91.7 %, CRP of 1.2, procalcitonin 0.70. No extremity swelling or findings consistent with DVT. -Did improve with zosyn with decreasing leukocytosis and procalcitonin. -patient developed hypotension likely multifactorial due to blood loss anemia, sepsis and sedating medications. He did clearly have a leukocytosis, elevated procalcitonin, and presentation consistent with pneumonia. CT abdomen did not show an intra-abdominal source. BP has been stable since April 12. -patient still having low-grade temp for unclear reasons -continue Zosyn 3. Possible pneumonia secondary to aspiration, acute, present on admission, active. -patient with cough developing blood-tinged sputum on day of admission, compl aints of fevers and chills. However blood tinged sputum likely the result of esophagitis. -pneumonia not evident on any of his chest x-rays or CT scans. -initially on Levaquin and Azithromycin, 04/11 started on Zosyn which he remains on. -04/12 intubated, now S/p EGD and working towards extubation with sedation vacations starting today. 4. Acute blood loss anemia secondary to likely upper GI bleed due to severe esophagitis -s/p 4 U total PRBC, most recently 04/15 1 U. continue to follow. -continue octreotide and IV Protonix drip per surgical recommendations. Hg stable around 8 currently. -He underwent EGD on 04/15 which showed severe grade 4 esophagitis with esophageal stricture. There was also concern for distal esophageal malignancy based on EGD and esophageal thickening on CT. Biopsies pending. 5. . Esophageal stricture, chronic -the patient has a prior history of esophageal stricture undergoing balloon dilation 2 years ago. Tamie Licona tear X 2 09/24 at [facility]. -on CT scan, debris is identified in the esophagus increasing the risk for aspiration. -speech therapy recommends NPO until Modified Barium Swallow can be done, subsequently intubated 04/11 -Bleeding improved with Octreotide and Protonix drips. - consult with Dr. Escobar. EGD 04/15 after negative quant gold evaluation. EGD consistent with esophageal stricture and severe esophagitis. -Cultures from EGD positive for E coli, Staph aureus, and Achromobacter sp. all of unknown significance.Cultures and biopsies pending. -There was also concern for distal esophageal malignancy and biopsies pending. 6. 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 -the patient resides at [facility] and states that he is nonambulatory. -he has right arm splint and right lower leg AFO. -holding while intubated home regimen of gabapentin 600 mg 3 times daily and baclofen 20 mg 3 times daily. 7. Essential hypertension, chronic, stable. -BP has been stable for days -holding while intubated home regimen of benazepril 40 mg daily and amlodipine 10 mg daily. 8. Hyperlipidemia, chronic, stable. -holding while intubated home regimen of atorvastatin 40 mg daily at bedtime. 9. Nicotine dependence, chronic, stable. -patient quit smoking in July of 2019, he has been using nicotine lozenges at [facility]. -ordered Nicoderm patch daily. 10. Nutrition -Continue PPN until tolerating adequate dietary intake. Will need speech evaluation upon exstubation. -volume status reviewed and appears adequate during his hospital stay 11. Lung mass, active -on CT patient noted to have left upper lobe lung nodule 2.3 x 2.3 cm, unchanged from August 2019 -consider outpatient PET scan to evaluate for malignancy I spent up to 60 minutes providing critical care management this patient. Lab holiday for 04/18. Ordered CBC, BMP for tomorrow. Isolation: Contact for MRSA in nares. VTE prophylaxis: Bilateral compression hose, Hold Enoxaparin due to GI bleeding IV fluid: on PPN Diet: NPO Code status: FULL CODE, patient's friend El Prettynett is his surrogate decision maker but he is currently in the ICU at an OSH. Quality VTE Deep Vein Thrombosis/Pulmonary Embolism Present on Admission: No
[2020-04-18] MEDS: SODIUM CHLORIDE 0.9% FLUSH 10 ML IV ×3 (08:35→22:13)
[2020-04-18] MEDS: PANTOPRAZOLE 40 MG VIAL IV ×2 (08:35→20:16)
--- NOTE | 2020-04-18 09:00 | PC.NURSE ---
Addendum entered by Bowen Foster R.N. 04/18/20 15:12: Pt did well on CPAP trial. RSBI and VBG reported to Dr. Lopez by RT who rec'd VORB to extubate pt. Pt was extubated to 30% cool air mist/face mask and titrated by RT. Pt is moaning and initially tachypneic and tachycardic RR40s HR 140s. Provided reorientation and careful explanation as well as emotional support. HR decreased to 120s and RR 30. Restraints discontinued per protocol. Addendum entered by Bowen Foster R.N. 04/18/20 09:44: Pt placed back on vent settings. RT states he spoke with Dr. Lopez and reported RSBI. Plan to attempt CPAP trial again this afternoon. Addendum entered by Bowen Foster R.N. 04/18/20 09:31: 0923- Called to Dr. Lopez and reported pt toleration of CPAP trial. Reported VS- BP 195/82 (130) HR 128 RR 38. Reported tidal volumes ~400s. Dr. Lopez requesting RSBI. Notified RT. Original Note: 0815- Sedation titrated to off. Pt is opening eyes and attempting to track voice. Does not follow commands to hand sizer hands, wiggle toes, or move legs. Provided verbal reorientation and educated to plan of care for the day. Educated to CPAP trial. RT at bedside initiated CPAP trial at 0823. Dr. Lpoez states he would like pt to trial for ~1 hour and then will assess readiness of extubation. Maintaining soft wrist restraints as pt is noted to move hands up toward ETT.
[2020-04-18] MEDS: propofoL 1,000 MG/100 ML VIAL 2.313 MG IV (10:09)
--- NOTE | 2020-04-18 11:25 | CM.DPC ---
Addendum entered by JEAN PAUL Stanford 04/18/20 14:22: ADD: SW confirmed with [facility] staff that pt has not completed DPOA pwk and no formal DPOA on file. SW to follow with pt when he is extubated and alert/oriented if pt would like to complete DPOA pwk for future needs. BF Original Note: DCP Cont: Per MD, pt has attempted sedation vacation again and will continue to have a weaning trial today towards hopeful extubation later today if possible. Pt's biopsy returned with positive for MRSA and pt has been on the vent for 8 days now. MD to determine if pt can be switched from PPN to TPN and pt was ruled out for TB but currently on precautions for MRSA. Per RN, pt currently not able to follow commands and difficult to determine if pt is painful right now. No calls form patient's contacts or family. SW attempted to call the contact Cristina Hess ([phone]) provided by [facility] admissions staff and SW was able to make contact with Cristina and she confirms that pt does not have family and his only contacts are herself and her father Alex Hess ([phone]) who is pt's long time friend. Both live locally and aware of pt being recently admitted to [facility] and then being in the hospital. Cristina lives in [place] and would like to visit pt bedside when pt is more medically stable. PT/OT will need to be re-ordered when pt more medically appropriate and extubated towards determining d/c needs of return to [facility] vs likely need for SNF. [facility] reviewing and no further SNF referrals made at this time as SNF would have a hard time determining if they can meet pt's needs until he is extubated and worked with PT/OT. Plan: SW to follow closely after extubation and re-order PT/OT when medically appropriate towards likely need for additional SNF referrals in addition to [facility] as a backup. PASRR previously completed in anticipation of SNF. SW to keep Cristina and Alex Hess updated. JEAN PAUL Stanford
[2020-04-18] MEDS: FLUCONAZOLE 200 MG/100 ML PIGGYBACK 100 MG IV (14:10)
[2020-04-18 15:36] LABS: PCO2 VBG 50.8 mmHg (45-50); PO2 VBG 49 mmHg (35-45); pH VBG 7.44 (7.33-7.43)
[2020-04-18 15:37] LABS: HCO3 VBG 35 mmol/L (23-28); Oxygen Saturation VBG 85 % (70-75); Total CO2 VBG 36 mmol/L (24-29)
[2020-04-18] MEDS: fentaNYL 100 MCG/2 ML INJ 27 MCG IV ×2 (17:24→20:14)
[2020-04-18] MEDS: LORazepam 2 MG/ML INJ 0.5 MG IV ×2 (17:26→23:29)
[2020-04-18] MEDS: dilTIAZem 5 MG/ML SDV 20 MG IV (18:39)
[2020-04-18] MEDS: DILTIAZEM 125 MG/125 ML PIGGYBACK IV (18:47)
[2020-04-18] MEDS: [UNRECOGNIZED DRUG - REMARK] 84.833 ML IV (19:07)
[2020-04-18 21:55] LABS: Fractionated Inspired Oxygen 30; HCO3 ABG 35 mmol/L (22-26); Oxygen Saturation ABG 95 % (95-100); PCO2 ABG 48.4 mmHg (35-45); PO2 ABG 72 mmHg (80-100); TCO2 ABG 37 mmol/L (21-31); pH ABG 7.47 (7.35-7.45)
[2020-04-19] VITALS (19 sets, daily range): BP systolic 132–171; BP diastolic 65–94; PULSE 85–146; RESP 28–45; TEMP 37.2–38.5; O2SAT 96–100
[2020-04-19] MEDS: fentaNYL 100 MCG/2 ML INJ 27 MCG IV ×8 (00:22→20:33)
[2020-04-19] MEDS: PIPERACILLIN-TAZO 3.375 GM/50 ML FROZ.PIGGY IV ×4 (04:07→21:54)
[2020-04-19] MEDS: SODIUM CHLORIDE 0.9% FLUSH 10 ML IV ×3 (04:14→10:02)
[2020-04-19 05:08] LABS: Add Manual Diff / Slide Review NO; Basophils Absolute Auto 100 /uL (0-100); Basophils Percent Auto 0.5 % (0-2); Eosinophils Absolute Auto 400 /uL (0-450); Hematocrit 28.2 % (41-53); Hemoglobin 9.5 g/dL (13.5-17.5); Lymphocytes Absolute Auto 1000 /uL (1100-4500); Lymphocytes Percent Auto 5.5 % (25-40); Mean Corpuscular HGB Conc 33.6 % (30-36); Mean Corpuscular Hemoglobin 29.2 PG (26-34); Mean Corpuscular Volume 86.8 fL (80-100); Monocytes Absolute Auto 1400 /uL (0-900); Monocytes Percent Auto 7.5 % (3-14); Neutrophils Absolute Auto 15700 /uL (1500-7000); Neutrophils Percent Auto 84.5 % (50-75); Red Blood Cell Count 3.25 X10^6/uL (4.5-5.9); Red Cell Distribution Width 15.2 % (11.6-14.8); White Blood Cell Count 18.5 X10^3/uL (4.5-11.0)
[2020-04-19 05:14] LABS: BUN Creatinine Ratio 17.6 (6-22); Blood Urea Nitrogen 12 mg/dL (9-20); Calcium 8.9 mg/dL (8.4-10.2); Carbon Dioxide 35 mmol/L (22-32); Chloride 91 mmol/L (98-107); Estimated Glomerular Filt Rate > 60.0 mL/min (>60); Glucose 127 mg/dL (80-110); HEMOLYSIS < 15 (0-50); Potassium 3.8 mmol/L (3.4-5.1); Sodium 132 mmol/L (137-145)
[2020-04-19 05:15] LABS: Platelet Count 734 X10^3/uL (150-400)
[2020-04-19] MEDS: LORazepam 2 MG/ML INJ 0.5 MG IV ×3 (05:18→19:26)
--- NOTE | 2020-04-19 05:27 | PC.NURSE ---
Pt. restless for majority of the night, medicated with Fentanyl and Lorazepam with some relief. T max for the night is 100.5 down to 99.9 with cool compress to the forehead, RR range bet. 30's-40's. Sats on 30% heated high flow in the high 90's and lungs decreased throughout with bibasilar fine crackles. Pt. appears short of breath and seems to be mouth breathing and using accessory muscles to breath. Pt. unable to lay flat in bed due to air hunger. Pt. continues to receive Zosyn, PPN and Diltiazem remains at 5mg/hr with heart rate in the 90's and occasional bursts in the 140's unsustained. Rhythm alternating bet. SR with PAC's and afib. SBP bet. 140-160 range. Cont. to treat and monitor.
--- NOTE | 2020-04-19 06:04 | DI.RAD.S_ITS ---
PROCEDURE: XR CHEST 1V INDICATIONS: shortness of breath TECHNIQUE: One view of the chest was acquired. COMPARISON: [facility], CT, CT CHEST ABD PEL W CON, 04/11/2020, 21:31. [facility], CR, XR CHEST 1V, 04/13/2020, 6:10. [facility], CR, XR CHEST 1V, 04/14/2020, 14:48. [facility], CR, XR CHEST 1V, 04/16/2020, 21:39. FINDINGS: Surgical changes and devices: There is a stable right-sided PICC line. Lungs and pleura: Within the left upper lobe, there is a focal nodule seen that measures 2.2 cm. Generalized interstitial prominence is seen. No pneumothorax or large pleural effusion can be seen. Minimal streaky opacity can be seen at the right lung base. Mediastinum: Mediastinal contours appear normal. Heart size is normal. Bones and chest wall: No suspicious bony lesions. Overlying soft tissues appear unremarkable. IMPRESSION: Interstitial prominence is seen throughout. The interstitial prominence is nonspecific, yet may be related to pulmonary edema. Left upper lobe pulmonary nodule seen. Likely atelectasis at the right lung base. Dictated by: Ruddy Wayne M.D. on 04/19/2020 at 7:30 Approved by: Ruddy Wayne M.D. on 04/19/2020 at 7:32
[2020-04-19] MEDS: ALBUTEROL 2.5 MG/3 ML NEB (ADULT) INH ×6 (06:23→23:02)
[2020-04-19] MEDS: SODIUM CHLORIDE 0.9% 1,000 ML 1000 ML IV (08:08)
[2020-04-19 08:17] LABS: Procalcitonin 0.27 ng/mL (<0.5)
[2020-04-19 09:30] LABS: Lactate (Lactic Acid) 0.7 mmol/L (0.7-2.1)
[2020-04-19 09:43] LABS: Bacteria Urine None Seen; WBC Urine None Seen (0-5/HPF)
[2020-04-19] MEDS: KCL 20 MEQ IN NS 1,000 ML 100 MEQ IV (09:58)
[2020-04-19] MEDS: PANTOPRAZOLE 40 MG VIAL IV ×2 (09:58→20:39)
[2020-04-19] MEDS: DILTIAZEM 125 MG/125 ML PIGGYBACK 15 MG IV ×2 (10:20→17:11)
[2020-04-19 10:41] LABS: Culture Indicated Urine Cult Not Indicated; RBC Urine 5-10/HPF (0-5/HPF)
--- NOTE | 2020-04-19 11:02 | P.PN_ITS ---
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 His respiratory status acute worsened requiring intubation on April 11. He was mechanically ventilated and finally extubated on April 19, 2020. He underwent EGD on April 15 which showed severe esophagitis with esophageal stricture. There was also concern for distal esophageal malignancy. Cultures were taken and biopsies are pending but current growth is E. Coli, MRSA, and Achromobacter sp. of unknown significance. Post extubation patient has been hypertensive and tachypneic and complaining of hard time breathing since extubation. He appears anxious but denies pain and lorazepam or fentanyl as needed pushes have not improved hypertension or tachypnea. He also went into AFib with RVR. ABG yesterday evening showed pH 7.47, pCO2 48, PO2 72, base excess 12 on 30% FiO2 and heated high-flow nasal cannula. Chest x-ray this a.m. read as interstitial prominence and minimal streaky opacity at the right lung base. He has been auto diuresing with net -5 L fluid balance over past 24 hours although clinically did not seem volume overloaded. WBC bumped up from 14.9 to 18.5 with procalcitonin 0.27. He has been low-grade febrile with T-max 100.7?. Exam Vital Signs (past 8 hours): - 04/19/20 04:00 04/19/20 06:10 04/19/20 06:24 Temperature 99.9 F H Pulse Rate 96 H 146 H 145 H Respiratory Rate 31 H 35 H 40 H Blood Pressure 166/80 H 153/94 H Pulse Oximetry 99 99 04/19/20 07:45 04/19/20 09:00 Temperature 99.7 F H 99.2 F Pulse Rate 91 H 92 H Respiratory Rate 32 H 45 H Blood Pressure 159/73 H 171/81 H Pulse Oximetry 99 98 Fraction of Inspired Oxygen 28 Oxygen Delivery Method Heated High Flow Oxygen Flow Rate 55 Narrative Exam Narrative: General: Anxious appearing tachypneic male Lungs: Coarse breath sounds but no crackles or wheeze Heart: Irregularly irregular Abdomen: Soft Extremities: Warm, dry without edema Neurological: Right hemiparesis, right lower arm splint and right AFO noted Skin: No rash or petechia Objective Labs Result Diagrams: 04/19/20 04:40 04/19/20 04:40 Labs: Laboratory Results - last 24 hr 04/18/20 04/18/20 04/19/20 14:35 21:43 04:40 WBC 18.5 H RBC 3.25 L Hgb 9.5 L Hct 28.2 L MCV 86.8 MCH 29.2 MCHC 33.6 RDW 15.2 H Plt Count 734 H Neut % (Auto) 84.5 H Lymph % (Auto) 5.5 L Manati % (Auto) 7.5 Eos % (Auto) 2.0 Baso % (Auto) 0.5 Neut # (Auto) 21260 H Lymph # (Auto) 1000 L [place] # (Auto) 1400 H Eos # (Auto) 400 Baso # (Auto) 100 ABG pH 7.47 H ABG pCO2 48.4 H ABG pO2 72 L ABG HCO3 35 H ABG Total CO2 37 H ABG O2 Saturation 95 ABG Base Excess 12.0 H VBG pH 7.44 H VBG pCO2 50.8 H VBG pO2 49 H VBG HCO3 35 H VBG Total CO2 36 H VBG O2 Saturation 85 H VBG Base Excess 10.0 H FiO2 30 Sodium Potassium Chloride Carbon Dioxide BUN Creatinine Estimated GFR BUN/Creatinine Ratio Glucose Lactate Calcium Procalcitonin Urine RBC Urine WBC Urine Bacteria Ur Culture Indicated? 04/19/20 04/19/20 04/19/20 04:40 04:40 09:05 WBC RBC Hgb Hct MCV MCH MCHC RDW Plt Count Neut % (Auto) Lymph % (Auto) Manati % (Auto) Eos % (Auto) Baso % (Auto) Neut # (Auto) Lymph # (Auto) [place] # (Auto) Eos # (Auto) Baso # (Auto) ABG pH ABG pCO2 ABG pO2 ABG HCO3 ABG Total CO2 ABG O2 Saturation ABG Base Excess VBG pH VBG pCO2 VBG pO2 VBG HCO3 VBG Total CO2 VBG O2 Saturation VBG Base Excess FiO2 Sodium 132 L Potassium 3.8 Chloride 91 L Carbon Dioxide 35 H BUN 12 Creatinine 0.68 Estimated GFR > 60.0 BUN/Creatinine Ratio 17.6 Glucose 127 H Lactate 0.7 Calcium 8.9 Procalcitonin 0.27 Urine RBC Urine WBC Urine Bacteria Ur Culture Indicated? 04/19/20 09:10 WBC RBC Hgb Hct MCV MCH MCHC RDW Plt Count Neut % (Auto) Lymph % (Auto) [place] % (Auto) Eos % (Auto) Baso % (Auto) Neut # (Auto) Lymph # (Auto) [place] # (Auto) Eos # (Auto) Baso # (Auto) ABG pH ABG pCO2 ABG pO2 ABG HCO3 ABG Total CO2 ABG O2 Saturation ABG Base Excess VBG pH VBG pCO2 VBG pO2 VBG HCO3 VBG Total CO2 VBG O2 Saturation VBG Base Excess FiO2 Sodium Potassium Chloride Carbon Dioxide BUN Creatinine Estimated GFR BUN/Creatinine Ratio Glucose Lactate Calcium Procalcitonin Urine RBC 5-10/hpf H Urine WBC None seen Urine Bacteria None seen Ur Culture Indicated? 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 His respiratory status acute worsened requiring intubation on April 11. He was mechanically ventilated and finally extubated on April 19, 2020. He underwent EGD on April 15 which showed severe esophagitis with esophageal stricture. There was also concern for distal esophageal malignancy. Cultures were taken and biopsies are pending but current growth is E. Coli, MRSA, and Achromobacter sp. of unknown significance. 1. Acute on chronic respiratory failure with hypoxemia,, present on admission, active. -patient with a history of emphysema and is on home O2 at 2-4 liters/minute. Complained of increasing shortness of breath for 2 days developing blood tinged cough on admission. -patient presented with increasing hypoxemia progressive for 2 days requiring increase in oxygen level to 3.5, upon arrival respiratory rate is 30 heart rate is 116. -initial arterial blood gas reveals a pH of 7.49, pCO2 of 33.3, PO2 62, bicarb 33 with a base excess +9 on 32% FiO2. -CTA ruled out acute pulmonary embolism, no obvious pneumonia, extensive emphyse ma, debris in the esophagus -started on antibiotics for possible pneumonia -04/12 the patient underwent intubation and resuscitation. -04/19 patient extubated after successful weaning trial with RSBI around 50 -post extubation patient has been challenging regarding respiratory status and has remained tachypneic with RR 30s to 40s, hypertensive, and tachycardic although O2 sats are good on 30% FiO2 and ABG looking fairly good without significant CO2 retention -CXR 04/19 with minimal right base infiltrate consistent with atelectasis and interstitial prominence -continue heated high-flow nasal cannula -obtain echo to further assess volume status and any potential cardiac impairment -CTA to r/o acute PE -fentanyl prn, lorazepam prn 2. Sepsis with respiratory compromise, present on admission, active. -patient with an elevated temperature upon arrival to the floor 100.3, and an elevated white count of 22.2 with increased neutrophils of 91.7 %, CRP of 1.2, procalcitonin 0.70. -patient developed hypotension likely multifactorial due to blood loss anemia, sepsis and sedating medications. He was on pressors briefly and got volume resuscitated. CT abdomen did not show an intra-abdominal source. -patient has been on Zosyn since admission -Procalcitonin peaked at 3.87 and trending down. -WBC trending down but on 04/19 spiked up to 18.5 -patient still having low-grade temp for unclear reasons, ? atelectasis -continue Zosyn -vancomycin added 04/19 due to increasing WBC and low-grade fevers although not clear as to source of infection -repeat blood cultures PICC and peripheral, urine culture ordered on 04/19 -esophageal cultures from EGD positive for E coli, MRSA, and Achromobacter sp. all of unknown significance 3. Possible pneumonia secondary to aspiration, acute, present on admission, active. -patient with cough developing blood-tinged sputum on day of admission, complaints of fevers and chills. However blood tinged sputum likely the result of esophagitis. -QuantiFERON negative for TB -pneumonia not evident on any of his chest x-rays or CT scans although had significant elevated WBC and procalcitonin without other source of infection. -continue Zosyn 4. Acute blood loss anemia secondary to severe esophagitis -s/p 4 U total PRBC, most recently 04/15 1 U. continue to follow. -continue IV Protonix 40 mg b.i.d.. Octreotide discontinued 04/18. -Hg stable around 8-9 range. -He underwent EGD on 04/15 which showed severe grade 4 esophagitis with esophageal stricture. There was also concern for distal esophageal malignancy based on EGD and esophageal thickening on CT. Biopsies pending. 5. . Esophageal stricture, chronic -the patient has a prior history of esophageal stricture undergoing balloon dilation 2 years ago. Tamie Licona tear X 2 09/24 at [facility]. -on CT scan, debris is identified in the esophagus increasing the risk for aspiration. -speech therapy recommends NPO until Modified Barium Swallow can be done 6. Acute atrial fibrillation with RVR, active -patient went into AFib post extubation and has remained in AFib with RVR -continue diltiazem drip for rate control 7. 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 -the patient resides at [facility] and states that he is nonambulatory. -he has right arm splint and right lower leg AFO. -holding while NPO home regimen of gabapentin 600 mg 3 times daily and baclofen 20 mg 3 times daily. 8. Essential hypertension, chronic, stable. -BP has been significantly hypertensive post extubation -holding while intubated home regimen of benazepril 40 mg daily and amlodipine 10 mg daily. 9. Nicotine dependence, chronic, stable. -patient quit smoking in July of 2019, previous 40 pack year history, he has been using nicotine lozenges at [facility]. -ordered Nicoderm patch daily. 10. Nutrition/fluids -NPO until patient is stable enough to get speech swallow evaluation -TPN started 04/19, patient was on PPN -patient auto diuresing, net -6500 mL fluid balance past 24 hours, net -7500 mL fluid balance cumulative this admission, although clinically does not seem volume overloaded so this is somewhat unexpected -NS started due to concern patient appears dry and may go into acute renal failure from rapid auto-diuresis, on NS at 42 cc/hour in addition to TPN 84 cc/hour and fluids from IV antibiotic, etc. -low-dose insulin sliding scale 11. Lung mass, active -on CT patient noted to have left upper lobe lung nodule 2.3 x 2.3 cm, unchanged from August 2019 -consider outpatient PET scan to evaluate for malignancy I spent up to 60 minutes providing critical care management this patient. Lab holiday for 04/20. Isolation: Contact for MRSA in nares and esophageal culture. VTE prophylaxis: Bilateral compression hose, Holding Enoxaparin due to GI bleeding IV fluid: on TPN Diet: NPO Code status: FULL CODE, patient's friend El Nielsen is his surrogate decision maker but he is currently in the ICU at an OSH. Quality VTE Deep Vein Thrombosis/Pulmonary Embolism Present on Admission: No
[2020-04-19] MEDS: VANCOMYCIN 1,250 MG in SODIUM CHLORIDE 0.9% 250 ML IV (12:03)
[2020-04-19] MEDS: INSULIN ASPART 100 UNIT/ML INSULN PEN SUBCUT ×2 (12:42→18:04)
--- NOTE | 2020-04-19 12:44 | DI.CT.S_ITS ---
PROCEDURE: CT ANGIO CHEST PE PROTOCOL INDICATIONS: resp failure, r/o PE TECHNIQUE: After the administration of intravenous contrast, 2 mm thick sections acquired from the pulmonary apices to the posterior costophrenic angles. 3-dimensional maximum intensity projection (MIP) coronal and sagittal reformats were then acquired through the thorax. For radiation dose reduction, the following was used: automated exposure control, adjustment of mA and/or kV according to patient size. COMPARISON: [facility], CT, CT CHEST ABDOMEN PELVIS WITH CONTRAST, 11/28/2018, 12:02. [facility], CT, CT CHEST ABD PEL W CON, 04/11/2020, 21:31. [facility], CT, CT CHEST WITHOUT CONTRAST, 09/03/2019, 23:19. [facility], CR, XR CHEST 1V, 04/16/2020, 21:39. [facility], CR, XR CHEST 1V, 04/19/2020, 6:08. [facility], CT, CT ANGIO CHEST PE PROTOCOL, 04/10/2020, 20:24. FINDINGS: Image quality: Excellent. Pulmonary arteries: Pulmonary arteries are normal in size, and demonstrate no intraluminal filling defects to suggest central pulmonary embolism. Lungs and pleura: Within the left upper lobe, there is again seen a 2.2 cm soft tissue mass laterally, as on series 5 image 90. Relatively prominent centrilobular emphysematous changes are seen. Subpleural bleb formation can be seen. Small bowel pleural effusions are seen, with overlying atelectasis. A pneumothorax is seen. Mediastinum: Heart size is normal, without pericardial effusion. Coronary artery calcifications are seen. No mediastinal or hilar adenopathy. Thoracic aorta is normal in caliber and enhancement. Esophagus is normal in caliber, without hiatal hernia. Bones and chest wall: There is a right-sided PICC line, with the tip within the inferior aspect of the superior vena cava. No suspicious bony lesions. Ribs and thoracic spine appear intact throughout. Thyroid gland demonstrates no significant CT abnormality. No axillary or supraclavicular adenopathy. Abdomen: Visualized upper abdominal solid organs appear normal in the early arterial phase of enhancement. IMPRESSION: Negative for pulmonary embolism. New, small bilateral pleural effusions with atelectasis. Centrilobular emphysematous changes are seen, including subpleural bleb formation. A 2.2 cm left upper lobe nodule is again seen. This nodule is unchanged compared to 11/28/18. Incidental note is made of: Right-sided PICC line Coronary artery calcification Dictated by: Ruddy Wayne M.D. on 04/19/2020 at 12:49 Approved by: Ruddy Wayne M.D. on 04/19/2020 at 12:54
[2020-04-19] MEDS: FLUCONAZOLE 200 MG/100 ML PIGGYBACK 100 MG IV (14:58)
[2020-04-19] MEDS: SODIUM CHLORIDE 0.9% 250 ML 21 ML IV (15:57)
[2020-04-19] MEDS: FAT EMULSIONS 50 GM/250 ML EMULSION IV (17:56)
[2020-04-19] MEDS: AA 5 %/CALCIUM/LYTES/DEXT 20 % 2,000 ML with MULTIVITAMIN 10 ML, TRACE ELEMENTS 1 ML 83.792 ML IV (17:57)
--- NOTE | 2020-04-19 22:29 | PM.EVENT ---
Event Note Date Patient Seen: 04/19/20 Time Patient Seen: 22:00 Event Note: Patient reported to me sounding wet. Saw and examined the patient, he is moaning, unable to verbalize his needs. Lungs do not sound wet to me, a lot of adventitious breath sounds along with vocalizations. He has been serverely volume depleted, so am hesitant to order lasix. Reviewed CT report from today, which states there is a pneumonthorax. I requested Dr. Chandler and notified Dr. Lopez of this finding. They both do not feel there is a pneumothorax but requested clarification by radiology. Discussed w/Dr. Christian, on-call radiologist and he clarifies that there is no pneumothorax.
[2020-04-20] VITALS (24 sets, daily range): BP systolic 132–176; BP diastolic 63–85; PULSE 83–122; RESP 16–48; TEMP 37.2–37.8; O2SAT 91–100
[2020-04-20] MEDS: INSULIN ASPART 100 UNIT/ML INSULN PEN SUBCUT ×4 (00:30→18:54)
[2020-04-20] MEDS: LORazepam 2 MG/ML INJ 0.5 MG IV ×3 (00:31→16:59)
[2020-04-20] MEDS: VANCOMYCIN 1,250 MG in SODIUM CHLORIDE 0.9% 250 ML IV ×2 (00:46→12:30)
[2020-04-20] MEDS: fentaNYL 100 MCG/2 ML INJ 27 MCG IV ×5 (00:59→07:32)
[2020-04-20] MEDS: DILTIAZEM 125 MG/125 ML PIGGYBACK IV (01:31)
[2020-04-20] MEDS: ALBUTEROL 2.5 MG/3 ML NEB (ADULT) INH ×7 (02:20→23:16)
[2020-04-20] MEDS: PIPERACILLIN-TAZO 3.375 GM/50 ML FROZ.PIGGY IV ×4 (05:05→22:15)
[2020-04-20 05:27] LABS: Hematocrit 27.3 % (41-53); Hemoglobin 9.4 g/dL (13.5-17.5); Mean Corpuscular HGB Conc 34.4 % (30-36); Mean Corpuscular Hemoglobin 29.6 PG (26-34); Mean Corpuscular Volume 86.1 fL (80-100); Platelet Count 855 X10^3/uL (150-400); Red Blood Cell Count 3.18 X10^6/uL (4.5-5.9); Red Cell Distribution Width 14.7 % (11.6-14.8); White Blood Cell Count 26.5 X10^3/uL (4.5-11.0)
[2020-04-20 05:29] LABS: BUN Creatinine Ratio 25.4 (6-22); Blood Urea Nitrogen 15 mg/dL (9-20); Calcium 9.2 mg/dL (8.4-10.2); Carbon Dioxide 32 mmol/L (22-32); Chloride 94 mmol/L (98-107); Estimated Glomerular Filt Rate > 60.0 mL/min (>60); Glucose 183 mg/dL (80-110); HEMOLYSIS < 15 (0-50); Potassium 3.7 mmol/L (3.4-5.1); Sodium 133 mmol/L (137-145)
[2020-04-20 05:30] LABS: Add Manual Diff / Slide Review YES
[2020-04-20 05:54] LABS: Neutrophils Absolute Manual 23585 /uL (3000-5900); Total Cells Counted 100
[2020-04-20 05:55] LABS: Polychromasia 1+
[2020-04-20 05:57] LABS: Anisocytosis 1+
--- NOTE | 2020-04-20 06:33 | PC.NURSE ---
Automobile Sales Consultant Note-Patient has been awake most of the night, moaning and restless. Disoriented x3, but is making small statements and making some needs known. Placed on bed apple when he says I have to poop no results. Asked where are my clothes? Asking for breathing treatment Has also stated I don't feel good. I've been drinking and smoking. Medicated with IV Fentanyl for FLACC 7-8 and IV Ativan for anxiety and agitation per prn. On HHFNC .30 FIO2, flow rate increased from 45L to 55L, RR remains 30s, lung sounds coarse. Converted to SR before midnight, Diltiazem gtt remains on at 10mg/hr, titrated down to 5mg/hr for about 2 hrs, but HR increased to 130, see vital trends and Emar. Cooperative with mouth care, has weak cough and not able to always clear secretions. Total 2425ml UOP, TPN infusing, IV abx given as scheduled.
[2020-04-20] MEDS: KCL 20 MEQ IN NS 1,000 ML 42 MEQ IV (07:31)
[2020-04-20] MEDS: PANTOPRAZOLE 40 MG VIAL IV ×2 (07:32→21:09)
[2020-04-20] MEDS: BISACODYL 10 MG SUPP PR (07:33)
[2020-04-20 07:38] LABS: Procalcitonin 0.71 ng/mL (<0.5)
[2020-04-20 09:23] LABS: COVID19 -Nasal RAPID Negative (Negative)
[2020-04-20] MEDS: SODIUM CHLORIDE 0.9% FLUSH 10 ML IV (09:32)
--- NOTE | 2020-04-20 09:38 | DIET.PN ---
Dietary Progress Note RD f/u pt day 2 off ventilator, infusing PPN at 83 mL/h, pt tolerating and refeeding labs WNL. Remains NPO. Recc continuing PPN until pt can safely consume at least 50% estimated energy requirements via PO. We can taper down to cyclic PPN at that point. HT: 187.9cm WT: 74kg (down 2 kg) UBW: none on file BMI: 20.9 Labs: hgb 9.4 L, Na 133 L, Mg 1.6 WNL, phos 3.7 WNL, K+ 2.5 WNL, BG 183 H MNA: 5 malnourished Alen: 14 high risk for skin breakdown Interventions: Recc continuous PPN (2L bag) @ goal (83mL/h) providing 100% PRO and 53% kcals, continue until pt tolerating full liquids providing half his EERs. Diet Order: NPO EER: 1900kcal (25kcal/kg), 85g PRO (1.1g/kg) Monitoring/Evaluations: following daily, labs, diet advancement
[2020-04-20 10:48] LABS: PCO2 ABG 45.8 mmHg (35-45); PO2 ABG 82 mmHg (80-100); pH ABG 7.43 (7.35-7.45)
[2020-04-20 10:50] LABS: Fractionated Inspired Oxygen 30; HCO3 ABG 30 mmol/L (22-26); Oxygen Saturation ABG 96 % (95-100); TCO2 ABG 31 mmol/L (21-31)
--- NOTE | 2020-04-20 11:40 | DI.RAD.S_ITS ---
PROCEDURE: XR CHEST 1V INDICATIONS: shortness of breath TECHNIQUE: One view of the chest was acquired. COMPARISON: [facility], , XR CHEST 1V, 04/19/2020, 6:08. FINDINGS: Surgical changes and devices: Right-sided PICC line tip is in SVC.. Lungs and pleura: Normal masslike consolidation in left upper lung field lateral aspect is again seen, unchanged in size and appearance from previous study. Chronic emphysematous changes are seen. No pleural effusions or pneumothorax. Mediastinum: Mediastinal contours appear normal. Heart size is normal. Bones and chest wall: No suspicious bony lesions. Overlying soft tissues appear unremarkable. IMPRESSION: Masslike consolidation in left upper lung field unchanged from prior study. COPD. No pleural effusion or pneumothorax. Dictated by: Aroldo Dubois M.D. on 04/20/2020 at 12:23 Approved by: Aroldo Dubois M.D. on 04/20/2020 at 12:23
[2020-04-20] MEDS: methylPREDNISolone 125 MG/2 ML VIAL 60 MG IV ×2 (12:29→20:03)
[2020-04-20] MEDS: MORPHINE 2 MG/ML INJ IV (12:30)
--- NOTE | 2020-04-20 12:43 | CM.DPC ---
DCP continued: EMR reviewed: CM/RN spoke with Dr. Patino during AM rounds. LILLIAN/Rn is working on a d/C plan. when talking about patients recovery we discussed patient going to a SNF - [facility] has accepted as long as patient is off of TPN and able to eat 50% or more of his meals at time of D/C. However patient hasn't been doing well and is still currently on a diltiazem drip, TPN and is still not doing well. LILLIAN/RN talked with Dr. Patino about [facility] options for this patient. Dr. Patino agreed that when patient is ready for d/c this could be a good option for his care but that he is not ready for that just yet. Patient can go back to [facility] if he recovers enough and can also go to [facility] after Swing bed placement. Dr. Patino agreed and LILLIAN/Rn placed referral to [facility] to review for possible swing bed. CM/RN department will follow up with [facility] tomorrow to check on approval. Dayanara Nichols RN
[2020-04-20] MEDS: DILTIAZEM 125 MG/125 ML PIGGYBACK 15 MG IV ×2 (13:08→20:04)
[2020-04-20 13:12] LABS: NT-proBNP (BNP-Adult 18+) 225 pg/mL (<125)
--- NOTE | 2020-04-20 13:18 | RT ---
Dr Patino requested I start working on a Trilogy noninvasive home ventilator (NHV) for patient to use upon discharge, to decrease his qhrx-ax-sphaaooss. I contacted Rosemary at [facility] ([phone]) and faxed demographic sheet; ABGs; H&P; some progress notes and pt's height information. Rosemary was going to send over an RX to get the Trilogy ordered. I followed up with Dr Patino again, and she said to cancel the request for the Trilogy NHV, as plan now is to send Mr King to an LTAC when he leaves this facility. I contacted Rosemary back and informed her to cancel the request-she said she will follow up at whatever LTAC Mr King goes to, and also will be in contact with our Discharge Planners here at [facility], and she may still be able to get the patient a Trilogy.
--- NOTE | 2020-04-20 14:35 | PC.NURSE ---
Addendum entered by Bowen Foster R.N. 04/20/20 15:24: Report given to oncoming RN. Reported need for sarabia dc and picc dsg change. Original Note: Spoke with Dr. Patino. Reported pt with continued tachypnea and air hunger. Reported morphine was ineffective when given for air hunger and requested clarification of orders for same (order states to give for pain). Reported pt continues with intermittent afib rates up to 140s on dilt gtt at 15 mg/hr. Reported pt with audible rhonchi and weak/ineffective cough. Dr. Patino states she will reorder increased dose of morphine prn air hunger, prn metoprolol, and deep suctioning as needed. Dr. Patino gave verbal order to remove sarbaia catheter. Called to materials to request condom cath. Awaiting supply arrival.
[2020-04-20 14:39] LABS: Creatine Kinase 423 U/L (55-170)
[2020-04-20] MEDS: FLUCONAZOLE 200 MG/100 ML PIGGYBACK 100 MG IV (14:39)
[2020-04-20] MEDS: MORPHINE 4 MG/ML INJ IV ×3 (14:45→21:09)
[2020-04-20] MEDS: DIGOXIN 500 MCG/2 ML AMPUL 250 MCG IV ×2 (14:45→21:10)
[2020-04-20 14:52] LABS: Troponin I 0.032 ng/mL (0.01-0.034)
[2020-04-20 14:54] LABS: CKMB % Relative Index 0.8 % (1.5-5.0)
--- NOTE | 2020-04-20 17:40 | PC.NURSE ---
Addendum entered by Madhavi Louise R.N. 04/20/20 22:00: 1825 Pt has had increased work of breathing, RT Enrrique was called and is at bedside, RR 56. Dr Patino notified, at bedside. Will attempt naso suctioning by RT, then trial Bipap. 1842 Pt is pulling at BiPap, notified Dr. Patino, ordered to D/C BiPap as it is not achieving to make pt comfortable, placed pt back on heated highflow NC settings FiO2 30% 50-55L, pt continues to work very hard to breathe, calls out, unable to get comfortable despite 4mg Morphine administration. Per Dr. Patino pt will be transferred to [facility] to have a brochoscopy done on Mon. Pt will most likely need to be intubated for the trip. Pt continues to be agitated, calling out, and working hard to breathe. Bed is low and locked, call light within reach, will continue to monitor. Original Note: [id number] Patino give pt prn 4mg Morphine for work of breathing, after morphine administration attempt to suction pt deep as it sounds like he is very wet. Pt remains in chair with music on, will continue to monitor.
--- NOTE | 2020-04-20 17:49 | PM.PN.1 ---
Subjective Subjective Date Patient Seen: 04/20/20 Interval history: The patient is a 65-year-old male who was admitted to the hospital with acute on chronic respiratory failure, upper GI bleed status post endoscopy, severe esophagitis likely infectious, who was extubated 2 days ago. Since extubation he continues to have copious secretions, he has a elevated respiratory rate of about 40, he appears to be markedly short of breath. Patient at times is confused but is verbal. He is awaiting upper GI to determine swallow function to decide if and diet can be advanced. The patient has made minimal progress. Appears to be still in extremis. Exam Vital Signs (past 8 hours): - 04/20/20 12:00 04/20/20 13:40 04/20/20 14:00 Temperature 99.5 F Pulse Rate 92 H 100 H 89 Respiratory Rate 46 H 40 H 45 H Blood Pressure 162/85 H 147/65 H Pulse Oximetry 99 97 100 04/20/20 16:00 Temperature 99.0 F Pulse Rate 87 Respiratory Rate 32 H Blood Pressure 157/78 H Pulse Oximetry 100 Fraction of Inspired Oxygen 25 Oxygen Delivery Method Heated High Flow Oxygen Flow Rate 50 Narrative Exam Narrative: Ill-appearing male with bitemporal wasting HEENT: Bitemporal wasting, poor dentition, oropharynx reveals moist mucous membranes Lungs: Coarse rhonchi bilaterally, no crackles or wheezes noted Cardiac exam: Regular rate and rhythm normal S1-S2 Abdomen: Soft nontender nondistended Extremities: No edema Neuro exam: Patient appears to be confused, he occasionally will call out, occasionally will answer appropriately Objective Labs Result Diagrams: 04/20/20 05:00 04/20/20 05:00 Labs: Laboratory Results - last 24 hr 04/20/20 04/20/20 04/20/20 05:00 05:00 07:10 WBC 26.5 H RBC 3.18 L Hgb 9.4 L Hct 27.3 L MCV 86.1 MCH 29.6 MCHC 34.4 RDW 14.7 Plt Count 855 H Neut % (Auto) Not Reportable Lymph % (Auto) Not Reportable [place] % (Auto) Not Reportable Eos % (Auto) Not Reportable Baso % (Auto) Not Reportable Lymph # (Auto) Not Reportable [place] # (Auto) Not Reportable Baso # (Auto) Not Reportable Total Counted 100 Seg Neutrophils % 89.0 H Lymphocytes % (Manual) 4.0 L Monocytes % (Manual) 7.0 Neutrophils # (Manual) 07684 H RBC Morphology See below Polychromasia 1+ H Anisocytosis 1+ H ABG pH ABG pCO2 ABG pO2 ABG HCO3 ABG Total CO2 ABG O2 Saturation ABG Base Excess FiO2 Sodium 133 L Potassium 3.7 Chloride 94 L Carbon Dioxide 32 BUN 15 Creatinine 0.59 L Estimated GFR > 60.0 BUN/Creatinine Ratio 25.4 H Glucose 183 H Calcium 9.2 Total Creatine Kinase CK-MB (CK-2) CK-MB (CK-2) Rel Index Troponin I NT-Pro-B Natriuret Pep Procalcitonin 0.71 H COVID-19 PCR 04/20/20 04/20/20 04/20/20 08:00 10:22 12:45 WBC RBC Hgb Hct MCV MCH MCHC RDW Plt Count Neut % (Auto) Lymph % (Auto) [place] % (Auto) Eos % (Auto) Baso % (Auto) Lymph # (Auto) [place] # (Auto) Baso # (Auto) Total Counted Seg Neutrophils % Lymphocytes % (Manual) Monocytes % (Manual) Neutrophils # (Manual) RBC Morphology Polychromasia Anisocytosis ABG pH 7.43 ABG pCO2 45.8 H ABG pO2 82 ABG HCO3 30 H ABG Total CO2 31 ABG O2 Saturation 96 ABG Base Excess 6.0 H FiO2 30 Sodium Potassium Chloride Carbon Dioxide BUN Creatinine Estimated GFR BUN/Creatinine Ratio Glucose Calcium Total Creatine Kinase CK-MB (CK-2) CK-MB (CK-2) Rel Index Troponin I NT-Pro-B Natriuret Pep 225 H Procalcitonin COVID-19 PCR Negative 04/20/20 12:45 WBC RBC Hgb Hct MCV MCH MCHC RDW Plt Count Neut % (Auto) Lymph % (Auto) [place] % (Auto) Eos % (Auto) Baso % (Auto) Lymph # (Auto) [place] # (Auto) Baso # (Auto) Total Counted Seg Neutrophils % Lymphocytes % (Manual) Monocytes % (Manual) Neutrophils # (Manual) RBC Morphology Polychromasia Anisocytosis ABG pH ABG pCO2 ABG pO2 ABG HCO3 ABG Total CO2 ABG O2 Saturation ABG Base Excess FiO2 Sodium Potassium Chloride Carbon Dioxide BUN Creatinine Estimated GFR BUN/Creatinine Ratio Glucose Calcium Total Creatine Kinase 423 H D CK-MB (CK-2) 3.40 H CK-MB (CK-2) Rel Index 0.8 L Troponin I 0.032 NT-Pro-B Natriuret Pep Procalcitonin COVID-19 PCR Assessment & Plan Assessment & Plan narrative: Eduardo King is a 65-year-old male with a 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 His respiratory status acute worsened requiring intubation on April 11. He was mechanically ventilated and finally extubated on April 19, 2020. He underwent EGD on April 15 which showed severe esophagitis with esophageal stricture. There was also concern for distal esophageal malignancy. Cultures were taken and biopsies are pending but current growth is E. Coli, MRSA, and Achromobacter sp. of unknown significance. 1. Acute on chronic respiratory failure with hypoxemia,, present on admission, active. -Patient with copious secretions -Likely with recurrent Aspiration of secretions, ( evidenced by elevated WBC 26.5 today) -baseline emphysema -No evidence of PE on CTA, chronic upper lobe mass noted -Will start IV steroids, continue high flow oxygen, continue nebs, Inhaled steroids -no evidence of CHF -Anticipate transfer to [facility] for intubation/bronchoscopy and Pulmonary Consultation ( Discussed with who is agreeable to transfer) 2. Sepsis with respiratory compromise, present on admission, active. -Continue Zosyn and Vancomycin for now -esophageal cultures from EGD positive for E coli, MRSA, and Achromobacter sp. all of unknown significance 3. Possible pneumonia secondary to aspiration, acute, present on admission, active. -patient with cough developing blood-tinged sputum on day of admission, complaints of fevers and chills. However blood tinged sputum likely the result of esophagitis. -QuantiFERON negative for TB -pneumonia not evident on any of his chest x-rays or CT scans although had significant elevated WBC and procalcitonin without other source of infection. -continue Zosyn -Likely recurrent aspiration -Chest PT Transfer for Bronchoscopy 4. Acute blood loss anemia secondary to severe esophagitis -s/p 4 U total PRBC, most recently 04/15 1 U. continue to follow. -continue IV Protonix 40 mg b.i.d.. -He underwent EGD on 04/15 which showed severe grade 4 esophagitis with esophageal stricture. There was also concern for distal esophageal malignancy based on EGD and esophageal thickening on CT. Biopsies pending. 5. . Acute atrial fibrillation with RVR, active -patient went into AFib post extubation and has remained in AFib with RVR -continue diltiazem drip for rate control -digoxin .250 q 6 hours -prn lopressor for rate control 7. 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 -the patient resides at [facility] and states that he is nonambulatory. -he has right arm splint and right lower leg AFO. -holding while NPO home regimen of gabapentin 600 mg 3 times daily and baclofen 20 mg 3 times daily. -Barium swallow to determine swallow function 8. Essential hypertension, chronic, stable. -BP has been significantly hypertensive post extubation -holding while intubated home regimen of benazepril 40 mg daily and amlodipine 10 mg daily. -Lopressor prn/ on dilt drip as well 9. Nicotine dependence, chronic, stable. -patient quit smoking in July of 2019, previous 40 pack year history, he has been using nicotine lozenges at [facility]. -ordered Nicoderm patch daily. 10. Nutrition/fluids -NPO until patient is stable enough to get speech swallow evaluation -TPN started 04/19, patient was on PPN - 11. Lung mass, active -on CT patient noted to have left upper lobe lung nodule 2.3 x 2.3 cm, unchanged from August 2019 - Would consider Palliative Care/Hospice once DPOA can be determined. Isolation: Contact for MRSA in nares and esophageal culture. Quality VTE Deep Vein Thrombosis/Pulmonary Embolism Present on Admission: No
[2020-04-20] MEDS: AA 5 %/CALCIUM/LYTES/DEXT 20 % 2,000 ML with MULTIVITAMIN 10 ML, TRACE ELEMENTS 1 ML 83.792 ML IV (17:58)
--- NOTE | 2020-04-20 18:40 | RT ---
Nurse Hope called me to pt room. Pt still is sig resp distress. + Plan is trial of Bipap as tolerated. Pt very restless and tachapnic (RR 45). Nurse Hope tried oral suction with no secretions.
[2020-04-20] MEDS: FAT EMULSIONS 50 GM/250 ML EMULSION IV (19:18)
[2020-04-20] MEDS: BUDESONIDE 0.5 MG/2 ML NEB INH (20:28)
[2020-04-21] VITALS (9 sets, daily range): BP systolic 147–170; BP diastolic 67–80; PULSE 71–84; RESP 18–49; TEMP 37.2–37.4; O2SAT 97–100
[2020-04-21] MEDS: INSULIN ASPART 100 UNIT/ML INSULN PEN SUBCUT ×2 (00:04→05:57)
[2020-04-21] MEDS: LORazepam 2 MG/ML INJ 0.5 MG IV ×2 (00:05→04:14)
[2020-04-21] MEDS: VANCOMYCIN TROUGH 1 REQUEST MISC (00:55)
[2020-04-21] MEDS: VANCOMYCIN 1,250 MG in SODIUM CHLORIDE 0.9% 250 ML IV (00:55)
[2020-04-21] MEDS: MORPHINE 4 MG/ML INJ IV ×4 (00:56→10:19)
[2020-04-21] MEDS: SODIUM CHLORIDE 0.9% FLUSH 10 ML IV (00:56)
--- NOTE | 2020-04-21 01:49 | PC.NURSE ---
Head Trimmer Notes-After initial assessment and patient receiving deep nasopharengial sx, he was restless and moaning, tachypneic with RR 40s, SpO2 100% on 30% FIO2 and 55L flow HHFNC. 0.5mg IV Ativan given, at 0110 4mg IV morphine given with some effectiveness. Patient has not slept in over 24 hours, dimmed lights, repositioned, and reassurance given for his high anxiety. Now in SR with PACs , rate 70s-90s, BP 160/79, decreased diltiazem gtt to 10mg/hr.
[2020-04-21] MEDS: DIGOXIN 500 MCG/2 ML AMPUL 250 MCG IV ×2 (02:59→08:56)
[2020-04-21] MEDS: ALBUTEROL 2.5 MG/3 ML NEB (ADULT) INH ×2 (03:18→07:12)
[2020-04-21] MEDS: methylPREDNISolone 125 MG/2 ML VIAL 60 MG IV (04:13)
[2020-04-21] MEDS: PIPERACILLIN-TAZO 3.375 GM/50 ML FROZ.PIGGY IV (04:13)
[2020-04-21] MEDS: BUDESONIDE 0.5 MG/2 ML NEB INH (07:15)
--- NOTE | 2020-04-21 08:51 | SLP.IPNOTE ---
Nursing reported that pt is planned to be transferred to [facility] to receive a bronchoscopy later today. Pt needs to remain NPO for procedure. Will re-attempt as able. Beckie Mays MS, CF-COMPUTER HARDWARE TECHNICIAN
[2020-04-21] MEDS: VANCOMYCIN 1,000 MG/200 ML PIGGYBACK 200 MG IV (08:56)
[2020-04-21] MEDS: PANTOPRAZOLE 40 MG VIAL IV (08:56)
[2020-04-21] MEDS: METOPROLOL TARTRATE 5 MG/5 ML INJ IV ×2 (08:57→10:19)
--- NOTE | 2020-04-21 09:34 | P.DS_ITS ---
History of Present Illness History of Present Illness Date Patient Seen: 04/21/20 Chief complaint: blood in sputum Narrative: Mr. 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 History obtained from the patient is somewhat suspect with different versions of information provided defer personnel. The patient is on home O2 at between 2-4 liters/minute titrated up to 3.5 L with increasing shortness of breath that has been progressive over 2 days. Today the patient reports coughing with blood tinged sputum and has been complaining of fevers and chills. He denies headache nasal congestion or sore throat. He has had no complaints of chest pain or palpitations. He reports worsening breathing with an associated cough and has minimal fully active. He reports no abdominal pain or heartburn, nausea or vomiting. Patient denies diarrhea or constipation reports last bowel movement was earlier today. He denies difficulty urinating. The patient states he is nonambulatory at the [facility] the he does have a right arm splint and right AFO. Upon arrival the patient is afebrile with temperature 98.1?, type cardiac at 116, blood pressure 152/89, respirations of 30 in shallow saturating 100% on 4 L nasal cannula. In a chest x-ray sustained finds no infusions or consolidation, left upper lobe nodule present, CT a is obtained finding no central PE, nodule 2.3 x 2 cm in the left upper lobe, minimal streaky opacities in the lung bases, debris in the esophagus. An arterial blood gas obtained finding pH of 7.49, pCO2 of 43.3, PO2 of 62, bicarb 33 with a base excess of +9 on 32% FiO2. On laboratory analysis he has an elevated white count at 22.2 with neutrophils of 91.7%, hemoglobin of 11.2 hematocrit of 33.8, platelets of 368. He has a PT of 12.7 and INR of 1.1 with an elevated D-dimer of 1609. On chemistries is sodium of 129, potassium of 5.3, BUN of 21 and creatinine 0.73. His nonfasting glucose is 102. Does have an elevated LDH at 631, CRP is 1.2, procalcitonin is 0.70, total CK is 580 with CK-MB of 5.26 and an index low at 0.9, troponin is 0.030. He has a proBNP of 56. Will the patient is treated in the ER with albuterol nebulizer an oxygenation in comfort stabilized on he did high-flow nasal cannula normal saline sepsis bolus, blood cultures are drawn and then patient received Levaquin 750 mg IV. With the patient is admitted to the hospital for acute hypoxic respiratory failure secondary to COPD and pneumonia. Discharge Providers Provider Date of admission: 04/10/20 21:41 Discharge Date: 04/21/20 Primary care physician: Juvencio Price MD Consults: 04/10/20 22:58 Consult to Discharge Planning Routine Comment: Consult to Occupational Therapy Evaluate & Treat Comment: Status post CVA right marita Physician Instructions: Evaluate and treat Consult to Physical Therapy Evaluate & Treat Comment: Status post CVA right marita Physician Instructions: Evaluate and Treat 04/11/20 08:08 Consult to Speech Therapy Evaluate & Treat Comment: Physician Instructions: Evaluate and treat 04/11/20 11:59 Consult to General Surgery Routine Comment: Consulting Provider: Alex Smith Reason for consultation: Esophageal stricture Has provider been notified: Yes 04/11/20 15:27 Consult After Hours PICC Line RN Routine Comment: 04/20/20 13:06 Consult to Speech Therapy Evaluate & Treat Comment: pt needs barium swallow Physician Instructions: Evaluate and treat 04/20/20 17:47 Consult to Respiratory Therapy Evaluate & Treat Comment: Physician Instructions: Evaluate and treat Consult to Respiratory Therapy Evaluate & Treat Comment: Chest PT Physician Instructions: Evaluate and treat Discharge provider: Sonia Patino MD Summary Hospital Course Discharge Diagnosis: 1. Acute on chronic respiratory failure, sputum cultures reveal Staph aureus 2. Aspiration pneumonitis 3. COPD 4. Erosive esophagitis, esophageal stricture, cultures revealed MRSA and E coli 5. Acute metabolic encephalopathy 6. Upper GI bleed, acute blood loss anemia, secondary to erosive esophagitis 7. Essential hypertension 8. Hyperlipidemia 9. History of stroke, with r esidual right hemiparesis and right hemiplegia 10. severe protein calorie malnutrition 11. History of a septal stroke 12. GERD Hospital Course: The patient is a 65-year-old male w Ith a complex past medical history who has a history of chronic respiratory failure on oxygen who presented to the hospital with an upper GI bleed and acute hypoxic respiratory failure. The patient was found on CT scan during admission to have a right upper lobe nodule which was chronic, he also had debris in the esophagus, it was felt that he had aspiration pneumonia and was initially treated with levofloxacin and Zithromax Son. Patient has a history of esophageal stricture with esophagitis. Given his upper GI bleed he was electively intubated and underwent upper endoscopy. The upper endoscopy showed severe esophagitis, and esophageal stricture, he was transfused 4 units of packed RBCs. The patient had cultures which were positive for E coli and MRSA. He was treated with antibiotics and antifungal therapy. A biopsy of the esophageal area was obtained as well as there was concern regarding thickening and possible esophageal cancer. The patient had copious secretions during intubation. He remain intubated for a minimum of 8 days. He was successfully extubated. Following extubation he continued to have copious secretions, elevated heart rate, hypertension, and tachypnea. The patient developed rapid atrial fibrillation. He was treated with IV diltiazem. Despite this he continued to be tachycardic and digoxin as well as Lopressor was added. His heart rate has since improved. The patient underwent a repeat CT scan of the chest given his worsening pulmonary status. CT scan showed no evidence of PE, it confirmed the right upper lobe nodule, and showed small bilateral pleural effusions and atelectasis. The patient had evaluation of the right upper lobe nodule to include QuantiFERON goal which was negative. He was tested for Covid-19 twice most recently yesterday which was also negative. Patient continued to be persistently tachypneic. He was placed on high-flow oxygen of 30% with 55 L with some improvement in his respiratory status. However he remained somewhat confused and tachypneic. The patient was started on IV steroids for COPD exacerbation. He continued on albuterol Atrovent nebulizers in addition to budesonide for his COPD. He remains on antibiotics for his aspiration pneumonia in addition to his bacterial esophagitis. He is also on TPN for nourishment. Plans were underway for upper GI with speech therapy to determine whether his diet could be advanced. As the patient's respiratory status continued to deteriorate consultation was obtained with [facility] regarding further evaluation. They re commended transfer to [facility] for bronchoscopy given his significant issues with managing secretions an ongoing respiratory distress. Patient was given morphine 4 mg every 4 hours which seemed to provide some relief. However he continues to be tachypneic with excessive secretions. Patient is somewhat confused, however he is awake and more verbal today than previously. Given his ongoing respirat ory issues he is transferred to [facility] for further evaluation. Status at Discharge Cognitive/behavioral status at discharge: at baseline, confused Functional status at discharge: wheelchair bound Overall status at discharge: patient is not back to baseline Time Spent with Patient Time spent: Less than 30 minutes Exam Vital Signs (past 8 hours): - 04/21/20 02:00 04/21/20 02:59 04/21/20 03:05 Temperature Pulse Rate 80 74 74 Respiratory Rate 38 H 38 H Blood Pressure 170/80 H 162/74 H 162/74 H Pulse Oximetry 100 100 04/21/20 03:42 04/21/20 06:22 04/21/20 08:00 Temperature 99.0 F 99.4 F Pulse Rate 80 75 71 Respiratory Rate 40 H 18 43 H Blood Pressure 147/67 H 153/72 H Pulse Oximetry 100 100 100 04/21/20 08:56 Temperature Pulse Rate 78 Respiratory Rate Blood Pressure 153/72 H Pulse Oximetry Fraction of Inspired Oxygen 30 Oxygen Delivery Method Heated High Flow Oxygen Flow Rate 55 Narrative Exam Narrative: Ill-appearing elderly male short of breath HEENT: Normocephalic atraumatic, patient has bitemporal wasting oropharynx reveals poor dentition, with moist mucous members, neck is supple Lungs: Decreased breath sounds, scattered rhonchi bilaterally Cardiac exam: Regular rate and rhythm normal S1-S2 Abdomen: Soft nontender nondistended Extremities: No edema Objective Labs Result Diagrams: 04/20/20 05:00 04/20/20 05:00 Labs: Laboratory Results - last 24 hr 04/20/20 04/20/20 04/20/20 10:22 12:45 12:45 ABG pH 7.43 ABG pCO2 45.8 H ABG pO2 82 ABG HCO3 30 H ABG Total CO2 31 ABG O2 Saturation 96 ABG Base Excess 6.0 H FiO2 30 Total Creatine Kinase 423 H D CK-MB (CK-2) 3.40 H CK-MB (CK-2) Rel Index 0.8 L Troponin I 0.032 NT-Pro-B Natriuret Pep 225 H Vancomycin Trough 04/20/20 23:30 ABG pH ABG pCO2 ABG pO2 ABG HCO3 ABG Total CO2 ABG O2 Saturation ABG Base Excess FiO2 Total Creatine Kinase CK-MB (CK-2) CK-MB (CK-2) Rel Index Troponin I NT-Pro-B Natriuret Pep Vancomycin Trough 9.0 L Discharge Plan Discharge Plan Patient Disposition: [facility] Other facility: [facility] Under care of provider: Discharge orders & Medications Prescriptions: No Action atorvastatin 40 mg Tablet 40 mg PO BEDTIME RF: 0 gabapentin 600 mg Tablet 600 mg PO TID RF: 0 ipratropium-albuterol 0.5 mg-3 mg(2.5 mg base)/3 mL Solution For Nebulization 3 ml INHALATION Q6H PRN (Reason: Wheezing) RF: 0 albuterol sulfate 2.5 mg /3 mL (0.083 %) Solution For Nebulization 2.5 mg inhalation QID PRN (Reason: Wheezing) RF: 0 aspirin [Adult Low Dose Aspirin] 81 mg Tablet,Delayed Release (Dr/Ec) 81 mg PO QAM RF: 0 acetaminophen 500 mg Tablet 500 mg PO TID RF: 0 baclofen 10 mg Tablet 20 mg PO TID RF: 0 amlodipine 10 mg Tablet 10 mg PO QAM RF: 0 pantoprazole [Protonix] 40 mg Tablet,Delayed Release (Dr/Ec) 40 mg PO QAM RF: 0 ferrous sulfate 325 mg (65 mg iron) Tablet 325 mg PO QAM RF: 0 benazepril 40 mg Tablet 40 mg PO QAM RF: 0 nicotine (polacrilex) 2 mg Lozenge 2 mg BUCCAL Q2-4H PRN (Reason: Smoking Cessation) RF: 0 Dulera 100-5 mcg/actuation Hfa Aerosol Inhaler 2 puff INHALATION BID RF: 0 Follow up/Referrals: Juvencio Price MD [Primary Care Provider] - Discharge Health Status Multidrug resistant organism: MRSA Diet/Activity/Treatments Diet comment: TPN, patient needs barium swallow with speech therapy Activity: As tolerated Oxygen: 4 L Other treatments: As read Discharge Data Primary Care Provider: Juvencio Price Quality VTE Deep Vein Thrombosis/Pulmonary Embolism Present on Admission: No
--- NOTE | 2020-04-21 10:35 | PC.NURSE ---
PT PREPARED FOR TRANSPORTATION TO [facility] FOR FURTHER CARE REQUESTED BY HOSPITALIST, DR HODGES- DOUBLE LUMEN PICC LINE FLUSHED WITH HEPARIN IN PREPARATION TPN LINE TAGGED, IV MORPHINE AND IV LOPRESSOR GIVEN PRIOR TO DISCHARGE FOR AIR HUNGER AND HTN- LUNGS COARSE AND MAINTAINING SPO2 97-100% ON 4L NC- CHRIS PALE YELLOW BRISK DIURESIS- REPORT CALLED TO [facility] AND ALL QUESTIONS ANSWERED TO [facility] SATISFACTION
[2020-04-21 11:44] LABS: SARS CoV19 IgG Negative (Negative)
--- NOTE | 2020-04-21 11:58 | CM.DPC ---
DCP/continued: Reviewed chart. Patient currently LOS day#11. Spoke with provider/Dr. Patino this AM, she reports that patient will be transferred to higher level of care for additional services that does not provide. Patient has had difficulty breathing since being off the vent. Pulmonary care needed. Patient transferring to [facility] today. AGRICULTURAL AND FORESTRY SUPERVISOR placed call to Mary randolph [place] to notify her of above. She will follow up with CM team at [facility]. P: Transfer to higher level of care today. JEAN PAUL Rapp
[2020-04-21 14:10] LABS: SARS-CoV19- IgM Negative (Negative)
== END 2020-04-21 10:42 | disposition short-term general hospital (02) | DRG 870 ==
LOC: ED 19:59 → AC 21:41 → ICU 04-12 08:23 → AC 04-16 16:22 → ICU 04-16 16:22
PROVIDERS: Family Medicine; Internal Medicine; Nurse Practitioner Family; Surgery; Admitting Provider Nurse Practitioner Adult Health; Emergency Provider Emergency Medicine; PCP Hospitalist; Referring Provider Emergency Medicine; Visit Provider Nurse Practitioner Adult Health
PROC: 0DJ08ZZ Inspection of Upper Intestinal Tract, Via Natural or Artificial Opening Endoscopic (ICD-10-PCS; CPT 43235; principal; 2020-04-15 17:30)
DX: A41.9 Sepsis, unspecified organism (principal); J69.0 Pneumonitis due to inhalation of food and vomit; J96.21 Acute and chronic respiratory failure with hypoxia; G93.41 Metabolic encephalopathy; K22.11 Ulcer of esophagus with bleeding; I69.951 Hemiplegia and hemiparesis following unspecified cerebrovascular disease affecting right dominant side; D62 Acute posthemorrhagic anemia; J44.1 Chronic obstructive pulmonary disease with (acute) exacerbation; J44.0 Chronic obstructive pulmonary disease with (acute) lower respiratory infection; R65.20 Severe sepsis without septic shock; K22.2 Esophageal obstruction; Z99.81 Dependence on supplemental oxygen; I95.9 Hypotension, unspecified; I10 Essential (primary) hypertension; E78.5 Hyperlipidemia, unspecified; I69.398 Other sequelae of cerebral infarction; I48.91 Unspecified atrial fibrillation; H54.7 Unspecified visual loss; F17.200 Nicotine dependence, unspecified, uncomplicated; K29.50 Unspecified chronic gastritis without bleeding; K22.8 Other specified diseases of esophagus; D64.9 Anemia, unspecified; F17.290 Nicotine dependence, other tobacco product, uncomplicated; Z03.818 Encounter for observation for suspected exposure to other biological agents ruled out; B95.62 Methicillin resistant Staphylococcus aureus infection as the cause of diseases classified elsewhere; B96.20 Unspecified Escherichia coli [E. coli] as the cause of diseases classified elsewhere
CPT/HCPCS: 36415; 36430; 36569; 36592; 36600; 71045; 71260; 71275; 74177; 80048; 80053; 80076; 80202; 81003; 81015; 82550; 82553; 82728; 82805; 82962; 83605; 83615; 83735; 83880; 84100; 84145; 84484; 85014; 85018; 85025; 85379; 85610; 86140; 86480; 86769; 86850; 86900; 86901; 87040; 87070; 87075; 87076; 87077; 87147; 87176; 87186; 87205; 87633; 87635; 87797; 92610; 93005; 93010; 94002; 94003; 94640; 94660; 94667; 94668; 94760; 94762; 94770; 94799; 96365; 96366; 97162; 99285; 99406; P9016; B4189; C9113; J0330; J1160; J1170; J1450; J1642; J1650; J1940; J1956; J2060; J2250; J2270; J2354; J2543; J2704; J2765; J2930; J3010; J3480; J7613; Q9967